=== PATIENT | female | born 1965 | race Caucasian/White ===

== ENCOUNTER → 2019-04-20 09:06 | Outpatient (BNVA) | payer MEDICARE, MEDICAID, SELFPAY | PROVIDERS: Family Provider Family Medicine; PCP Family Medicine; Visit Provider Anesthesiology | DX: G89.29 Other chronic pain (principal); M54.42 Lumbago with sciatica, left side; M47.816 Spondylosis without myelopathy or radiculopathy, lumbar region; M51.9 Unspecified thoracic, thoracolumbar and lumbosacral intervertebral disc disorder; M79.651 Pain in right thigh; M79.652 Pain in left thigh; Z79.891 Long term (current) use of opiate analgesic | CPT/HCPCS: 99214 ==

== ENCOUNTER 2019-04-20 11:25 | Emergency (ER) | payer MEDICARE, MEDICAID, SELFPAY ==
[2019-04-20 11:33] VITALS: BP 125/71; PULSE 82; RESP 16; O2SAT 99; BMI 33.2
--- NOTE | 2019-04-20 11:37 | ED_ITS ---
Entered by Rissa Sesay, acting as scribe for HPI - Neuro Symptoms/Deficit General: Chief Complaint: Neuro Symptoms/Deficit Stated Complaint: DR Gardner wants a stroke work up 2 TIA Time Seen by Provider: 04/20/19 11:37 Source: patient Mode of arrival: ambulatory History of Present Illness: HPI Narrative: 53 yo female presents with weakness and confusion. pt states this started months ago but worsened 3 days ago. pt was seen by Dr. Uriostegui today and when pt was telling him about her symptoms 3 days ago she was sent to the ED Dr. Gardner wanted her checked out. pt has a hx of TIA's. Pt denies any other symptoms. Onset (ago): day(s) (3 days ago) History of same: Yes (2 TIA's) Severity: similar to previous episodes Quality: weak Relieving factors: none Exacerbating factors: none Context: gradual onset Associated symptoms: Reports weakness; Deny chest pain, headache(s), malaise, nausea, syncope, vertigo or vomiting Treatments Prior to Arrival: none Review of Systems Const: Denies: fever, chills, body aches, fatigue, malaise or night sweats Eyes: Denies: change in vision or blurry vision ENMT: Denies: throat pain, oral sores/lesions, dental pain, nasal discharge or nasal congestion Card: Denies: chest pain, palpitations, irregular heart rhythm, edema, syncope, shortness of breath on exertion, shortness of breath when lying down or leg pain with exertion Resp: Denies: shortness of breath, productive cough, non-productive cough or wheezing GI: Denies: abdominal pain, nausea, vomiting, vomiting blood, coffee grounds in vomit, difficulty swallowing, heartburn/indigestion, diarrhea, constipation, cramping, blood in stool or black tarry stool : Denies: flank pain, painful urination, urinary frequency, urinary urgency, urinary incontinence or blood in urine Musc: Denies: neck pain, back pain, extremity pain, extremity swelling, joint pain or joint swelling Skin/Breast: Denies: rash, itching or redness Neuro: Denies: headache, numbness in extremities, changes in sensation, lack of coordination, difficulty walking, frequent falls or vertigo Psych: Denies: anxiety, depression, loss of interest, visual hallucinations, auditory hallucinations, suicidal ideation or homicidal ideation Endo: Denies: excessive urination, excessive thirst, tired all the time or cold intolerance Neeraj/Lymph: Denies: easy bruising, easy bleeding, petechiae, enlarged lymph nodes or tender lymph nodes PFSH ED PFSH: Statuses (acute, chronic, etc) shown below reflect problem list status as previously entered and may not be historically accurate Medical History 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) History of diabetes mellitus (Acute) History of TIA (transient ischemic attack) (Acute) Lumbosacral disc disease (Chronic) Opioid contract exists (Chronic) Spondylosis without myelopathy or radiculopathy, lumbar region (Chronic) Surgical History H/O right knee surgery (Acute) History of hysterectomy (Acute) Family History Other CAD (coronary artery disease) Cancer Diabetes Hypertension Social History Smoking and tobacco status: never smoked Alcohol intake: never NIH stroke score NIHSS: Level Of Consciousness - 1a: 0 Level Of Consciousness Questions - 1b: Both Correct Level Of Consciousness Commands - 1c: Both Correct Best Gaze - 2: Normal Visual Almeida - 3: No Visual Loss Facial Palsy - 4: Normal Motor Arm Right - 5: No Drift Motor Arm Left - 5: No Drift Motor Leg Right - 6: No Drift Motor Leg Left - 6: No Drift Limb Ataxia - 7: Absent Sensory - 8: Mild To Moderate Loss Best Language - 9: No Aphasia (nurse scored 1 for aphasia. I do not find evidence of any dyphagia) Dysarthia - 10: Normal Extinction And Inattention - 11: 0 Score: Total Score: 1 Physical Exam Const: COMMON NORMALS: no apparent distress GENERAL APPEARANCE: cooperative and comfortable ORIENTATION/CONSCIOUSNESS: Yes awake, Yes oriented to person, Yes oriented to place and Yes oriented to time HENMT: COMMON NORMALS: normocephalic, head/scalp atraumatic, hearing grossly normal bilaterally, external ears normal, EAC's normal, TM's normal bilaterally, nasal mucous membranes and turbinates normal, moist oral mucous membranes and oropharynx normal HEAD & SCALP: normocephalic and atraumatic NOSE: nasal mucous membranes and turbinates normal EXTERNAL EAR: Yes external ears normal EXTERNAL AUDITORY CANAL: EAC's normal TYMPANIC MEMBRANE: TM's normal bilaterally Eye: COMMON NORMALS: PERRL, EOMs intact bilaterally, conjunctivae normal and no scleral icterus CONJUNCTIVA: Yes conjunctivae normal PUPIL: Yes PERRL Neck/C-Spine: COMMON NORMALS: full ROM, no lymphadenopathy, supple and no JVD Lymph: LYMPHATIC: no lymphadenopathy noted and no lymphedema noted Resp: COMMON NORMALS: normal respiratory effort, no retractions, no use of accessory muscles and clear to auscultation bilaterally AUSCULTATION: clear to auscultation bilaterally Cardio: COMMON NORMALS: no JVD, regular rate, regular rhythm and no murmurs RATE: regular rate RHYTHM: regular rhythm Extremity: COMMON NORMALS: normal to inspection, normal capillary refill, no c lubbing, cyanosis or edema, no calf tenderness and no pedal edema Neuro: SENSORIUM/ORIENTATION: Yes oriented to person, Yes oriented to place and Yes oriented to time Skin: COMMON NORMALS: no rashes or lesions noted GENERAL SKIN EXAM: no rashes or lesions noted Course ED course: We will set her up for outpatient echo and carotids follow-up with primary care doctor return if worsens he has no focal neurologic deficits at this time. She states she has not had any real symptoms for a couple of days now. Vital Signs: Vital signs: Vital Signs Pulse Rate 82 04/20/19 13:29 Respiratory Rate 18 04/20/19 13:29 Blood Pressure 133/72 04/20/19 13:29 Pulse Oximetry 96 04/20/19 13:29 MDM - Neuro Symptoms/Deficit Lab Data: Labs: Lab Results 04/20/19 04/20/19 04/20/19 Range/Units 11:45 11:45 11:45 WBC 10.1 H (4.0-10.0) 10^3/ uL RBC 5.33 H (4.1-5.3) 10^6/u L Hgb 13.9 (11.5-15.3) g/dL Hct 42.2 (37.0-47.0) % MCV 79.2 L (81-99) fL MCH 26.1 L (28.0-34.0) pg MCHC 32.9 (30.0-36.0) g/dL RDW 13.2 (12.1-15.1) % Plt Count 282 (130-400) 10^3/c mm MPV 10.8 H (7.4-10.4) fL Neut % (Auto) 62.2 % Lymph % (Auto) 29.9 % Surry % (Auto) 3.8 % Eos % (Auto) 2.1 % Baso % (Auto) 1.0 % Neut # (Auto) 6.3 (1.8-7.7) 10^3/u L Lymph # (Auto) 3.0 (0.8-4.8) 10^3/u L Surry # (Auto) 0.4 (0.2-0.9) 10^3/u L Eos # (Auto) 0.2 (0.0-0.8) 10^3/u L Baso # (Auto) 0.1 (0.0-0.1) 10^3/u L Nucleated RBC % (a uto) 0 % Nucleated RBCs # 0.0 /100WBC PT 13.40 H (10.5-13.3) SECO NDS INR 0.99 (0.8-1.2) APTT 24.6 (23.9-36.7) SECO NDS Sodium 133 L (136-145) mmol/L Potassium 3.8 (3.5-5.1) mmol/L Chloride 91 L (98-107) mmol/L Carbon Dioxide 29 (22-29) mmol/L Anion Gap 16.8 (5-19) BUN 18 (6-20) mg/dL Creatinine 0.8 (0.5-0.9) mg/dL GFR Calculation 74.5 L (90-130) mL/min Glucose 382 H (74-109) mg/dL POC Glucose (70-110) mg/dL Calcium 10.3 H (8.6-10.0) mg/Dl Total Bilirubin 0.2 (0.15-1.2) mg/dL AST 23 (0-32) U/L ALT 36 H (0-33) U/L Alkaline Phosphata se 113 H (35-105) IU/L Total Protein 8.3 (6.6-8.7) g/dL Albumin 4.9 (3.5-5.2) g/dL Globulin 3.4 (1.3-4.6) g/dL Urine Color (Yellow) Urine Appearance (CLEAR) Urine pH (5-7) Ur Specific Gravit y (1.005-1.030) Urine Protein (Negative) Urine Glucose (UA) (Normal) Urine Ketones (Negative) Urine Occult Blood (Negative) Urine Nitrate (Negative) Urine Bilirubin (NEGATIVE) Urine Urobilinogen (Negative) mg/dL Ur Leukocyte Barbi ase (Negative) Urine Opiates Scre en (Negative) ng/mL Ur Barbiturates Sc reen (Negative) ng/mL Ur Phencyclidine S crn (Negative) ng/mL Ur Amphetamines Sc reen (Negative) ng/mL U Benzodiazepines Scrn (Negative) ng/mL Urine Cocaine Scre en (Negative) ng/mL U Marijuana (THC) Screen (Negative) ng/mL 04/20/19 04/20/19 04/20/19 Range/Units 12:15 12:24 12:24 WBC (4.0-10.0) 10^3/ uL RBC (4.1-5.3) 10^6/u L Hgb (11.5-15.3) g/dL Hct (37.0-47.0) % MCV (81-99) fL MCH (28.0-34.0) pg MCHC (30.0-36.0) g/dL RDW (12.1-15.1) % Plt Count (130-400) 10^3/c mm MPV (7.4-10.4) fL Neut % (Auto) % Lymph % (Auto) % Surry % (Auto) % Eos % (Auto) % Baso % (Auto) % Neut # (Auto) (1.8-7.7) 10^3/u L Lymph # (Auto) (0.8-4.8) 10^3/u L Surry # (Auto) (0.2-0.9) 10^3/u L Eos # (Auto) (0.0-0.8) 10^3/u L Baso # (Auto) (0.0-0.1) 10^3/u L Nucleated RBC % (a uto) % Nucleated RBCs # /100WBC PT (10.5-13.3) SECO NDS INR (0.8-1.2) APTT (23.9-36.7) SECO NDS Sodium (136-145) mmol/L Potassium (3.5-5.1) mmol/L Chloride (98-107) mmol/L Carbon Dioxide (22-29) mmol/L Anion Gap (5-19) BUN (6-20) mg/dL Creatinine (0.5-0.9) mg/dL GFR Calculation (90-130) mL/min Glucose (74-109) mg/dL POC Glucose 334 (70-110) mg/dL Calcium (8.6-10.0) mg/Dl Total Bilirubin (0.15-1.2) mg/dL AST (0-32) U/L ALT (0-33) U/L Alkaline Phosphata se (35-105) IU/L Total Protein (6.6-8.7) g/dL Albumin (3.5-5.2) g/dL Globulin (1.3-4.6) g/dL Urine Color Straw (Yellow) Urine Appearance Clear (CLEAR) Urine pH 5 (5-7) Ur Specific Gravit y 1.015 (1.005-1.030) Urine Protein Neg (Negative) Urine Glucose (UA) 4+ H (Normal) Urine Ketones Negative (Negative) Urine Occult Blood Neg (Negative) Urine Nitrate Negative (Negative) Urine Bilirubin Neg (NEGATIVE) Urine Urobilinogen Norm (Negative) mg/dL Ur Leukocyte Barbi ase Negative (Negative) Urine Opiates Scre en Negative (Negative) ng/mL Ur Barbiturates Sc reen Negative (Negative) ng/mL Ur Phencyclidine S crn Negative (Negative) ng/mL Ur Amphetamines Sc reen Negative (Negative) ng/mL U Benzodiazepines Scrn Negative (Negative) ng/mL Urine Cocaine Scre en Negative (Negative) ng/mL U Marijuana (THC) Screen Negative (Negative) ng/mL Imaging Data^: CT Head: Radiologist's impression: [address] [place] [address] CT Scan Report Signed Patient: Kaleb Betancourt #: [id number] : 1965Acct#:[id number] Age/Sex: 53 / FADM Date: 04/20/19 Loc: ERRoom/Bed: Attending Dr: Ordering Provider/Ordering MD: Lg De Leon DO Date of Service: 04/20/19 Procedure(s): CT head wo con* [id number] Accession Number(s): [id number] Report Number: [id number] WS: [id number] CT HEAD TECHNIQUE: Noncontrast CT of the head obtained from the skullbase to the vertex. CLINICAL INFORMATION: Symptoms of Acute Stroke COMPARISON: None. DLP: 755.[address] scans at [facility] use at least one of these dose optimization techniques: automated exposure control; mA and/or kV adjustment per patient size (includes targeted exams where dose is matched to clinical indication); or iterative reconstruction. FINDINGS: No evidence of intracranial hemorrhage or mass effect. Ventricular system and basal cisterns are patent. Mild small vessel changes with mild parenchymal volume loss. No extra-axial fluid collections. No evidence of mass or mass effect. Normal snider-white differentiation. Paranasal sinuses and mastoid air cells are well aerated. .Normal visualized soft tissues. Message left for Lg De Leon DO at 04/20/2019 12:[address]/CT head wo con* [id number] IMPRESSION: 1. No evidence of intracranial hemorrhage or mass effect. 2. Mild small vessel changes with mild parenchymal volume loss. 3. No acute intracranial findings. Dictated By:Clayton Caceres MD Signed By:Clayton Caceres MDSigned Date/Time:04/20/19 120 DD/ 1204 Discharge Plan Discharge Patient Disposition: Home, Self-Care Clinical Impression: TIA (transient ischemic attack), Diabetes mellitus, HTN (hypertension), Hyperlipidemia Condition: Stable Prescriptions: New atorvastatin 80 mg tablet 80 mg PO DAILY Qty: 30 RF: 0 Discontinued simvastatin 40 mg tablet 40 mg PO QDAY RF: 0 fenofibric acid (choline) 135 mg capsule,delayed release(DR/EC) 135 mg PO QDAY RF: 0 No Action tizanidine 4 mg capsule 4 mg PO TID PRNRF: 0 amitriptyline 150 mg tablet 150 mg PO .BEDTIME RF: 0 acyclovir 400 mg tablet 400 mg PO BID RF: 0 aripiprazole 15 mg tablet 15 mg PO QDAY RF: 0 furosemide [Lasix] 20 mg tablet 20 mg PO QAM RF: 0 Lactobacillus acidophilus [Acidophilus] Capsule 100 mg PO QDAY RF: 0 metformin 750 mg tablet extended release 24 hr 1,500 mg PO QDAY RF: 0 chlorthalidone 25 mg tablet 12.5 mg PO QDAY RF: 0 diclofenac sodium [Voltaren] 1 % gel 2 gm TOPICAL QID RF: 0 sertraline 100 mg tablet 200 mg PO QDAY RF: 0 promethazine 25 mg tablet 25 mg PO TID PRNRF: 0 omeprazole 20 mg tablet,delayed release (DR/EC) 20 mg PO QDAY RF: 0 estradiol 10 mcg insert 10 mcg VAGINAL QDAY RF: 0 hydroxyzine pamoate [Vistaril] 50 mg capsule 50 mg PO QID PRNRF: 0 Tresiba FlexTouch U-100 100 unit/mL (3 mL) insulin pen See Rx Instructions SUBCUT QDAY RF: 0 Breo Ellipta 100-25 mcg/dose blister with device See Rx Instructions INHALATION Q24H RF: 0 aspirin 81 mg tablet,delayed release (DR/EC) See Rx Instructions PO QDAY RF: 0 gabapentin 800 mg tablet 800 mg PO TID 30 Days Qty: 90 RF: 1 hydrocodone-acetaminophen 10-325 mg tablet 1 tab PO QID PRN (Reason: pain) 30 Days Qty: 120 RF: 0 hydrocodone-acetaminophen 10-325 mg tablet 1 tab PO QID PRN (Reason: pain) 30 Days Qty: 120 RF: 0 Discharge Orders: Discharge Order (Routine); Ordered 04/20/19 Ordered By: Lg De Leon Referrals: Marika Hendrickson DO [Primary Care Provider] - Discharge Diet: Usual diet Discharge Activity: Resume usual activity Activity Restrictions/Additional Instructions: Follow-up with your primary care doctor for further evaluation of your diabetes and new cholesterol medicine. Case management will call to set up echo cardiogram and carotid duplex Discharge Date/Time: 04/20/19 13:29 Coding Level of Care Code ED Golf Cart Attendant for Chg Fwervin The documentation recorded by the Lázaro umanzor Bridget Annette, accurately reflects the service I personally performed and the decisions made by Moises yoder Curtis L, DO Apr 20, 2019 11:25
--- NOTE | 2019-04-20 11:40 | CT_ITS ---
WS: [id number] CT HEAD TECHNIQUE: Noncontrast CT of the head obtained from the skullbase to the vertex. CLINICAL INFORMATION: Symptoms of Acute Stroke COMPARISON: None. DLP: 755.[address] scans at [facility] use at least one of these dose optimization techniques: automat ed exposure control; mA and/or kV adjustment per patient size (includes targeted exams where dose is matched to clinical indication); or iterative reconstruction. FINDINGS: No evidence of intracranial hemorrhage or mass effect. Ventricular system and basal cisterns are hodges nt. Mild small vessel changes with mild parenchymal volume loss. No extra-axial fluid collections. No evidence of mass or mass effect. Normal snider-white differentiation. Paranasal sinuses and mastoid air cells are well aerated. .Normal visualized soft tissues. Message left for Lg De Leon DO at 04/20/2019 12:[address]/CT head wo con* [id number] IMPRESSION: 1. No evidence of intracranial hemorrhage or mass effect. 2. Mild small vessel changes with mild parenchymal volume loss. 3. No acute intracranial findings.
--- NOTE | 2019-04-20 11:40 | ECG_ITS ---
Measurements Intervals [place] Rate: 80 P: 27 IN: 181 QRS: 14 QRSD: 85 T: 43 QT: 362 QTc: 419 SINUS RHYTHM NONSPECIFIC T-WAVE ABNORMALITY No previous ECG available for comparison Electronically Signed On 04-21-2019 11:24:09 ADULT MANAGER by Chris Samuel M.D. [id number]
[2019-04-20 11:50] LABS: Basophils # 0.1 10^3/uL (0.0-0.1); Eosinophils # 0.2 10^3/uL (0.0-0.8); Eosinophils % 2.1 %; Hematocrit 42.2 % (37.0-47.0); Hemoglobin 13.9 g/dL (11.5-15.3); Lymphocytes % 29.9 %; Mean Corpuscular HGB Conc 32.9 g/dL (30.0-36.0); Mean Corpuscular Hemoglobin 26.1 pg (28.0-34.0); Mean Corpuscular Volume 79.2 fL (81-99); Mean Platelet Volume 10.8 fL (7.4-10.4); Monocytes # 0.4 10^3/uL (0.2-0.9); Monocytes % 3.8 %; Neutrophils # 6.3 10^3/uL (1.8-7.7); Neutrophils % 62.2 %; Nucleated Red Blood Cells % 0 %; Platelet Count 282 10^3/cmm (130-400); Red Blood Count 5.33 10^6/uL (4.1-5.3); Red Cell Distribution Width 13.2 % (12.1-15.1); White Blood Count 10.1 10^3/uL (4.0-10.0)
[2019-04-20 11:58] LABS: INR 0.99 (0.8-1.2)
[2019-04-20 11:59] LABS: Partial Thromboplastin Time 24.6 SECONDS (23.9-36.7)
[2019-04-20 12:05] LABS: Alanine Aminotransferase 36 U/L (0-33); Albumin Level 4.9 g/dL (3.5-5.2); Alkaline Phosphatase 113 IU/L (35-105); Anion Gap 16.8 (5-19); Aspartate Amino Transferase 23 U/L (0-32); Blood Urea Nitrogen 18 mg/dL (6-20); Calcium 10.3 mg/Dl (8.6-10.0); Carbon Dioxide 29 mmol/L (22-29); Chloride 91 mmol/L (98-107); Globulin 3.4 g/dL (1.3-4.6); Glomerular Filtration Rate 74.5 mL/min (90-130); Glucose 382 mg/dL (74-109); Potassium 3.8 mmol/L (3.5-5.1); Sodium 133 mmol/L (136-145); Total Bilirubin 0.2 mg/dL (0.15-1.2); Total Protein 8.3 g/dL (6.6-8.7)
[2019-04-20 12:06] VITALS: BP 130/59; PULSE 78; RESP 18; O2SAT 94
[2019-04-20 12:22] LABS: Glucose Point of Care 334 mg/dL (70-110)
[2019-04-20 12:32] LABS: Add Urine Microscopic? NO
[2019-04-20 12:41] LABS: Bilirubin Urine Neg (NEGATIVE); Blood Urine Neg (Negative); Glucose Urine UA 4+ (Normal); Ketones Urine Negative (Negative); Leukocyte Esterase Urine Negative (Negative); Nitrate Urine Negative (Negative); Protein Urine Neg (Negative); Specific Gravity, Urine 1.015 (1.005-1.030); Urine Appearance Clear (CLEAR); Urine Color Straw (Yellow); Urobilinogen Urine Norm (Negative); pH Urine 5 (5-7)
[2019-04-20 12:45] VITALS: BP 130/71; PULSE 79; RESP 14; O2SAT 94
[2019-04-20 12:50] LABS: Amphetamines Screen Urine Negative (Negative); Barbiturates Screen Urine Negative (Negative); Benzodiazepines Screen Urine Negative (Negative); Cocaine Screen Urine Negative (Negative); Opiate Screen Urine Negative (Negative); PCP Screen Urine Negative (Negative); THC Screen Urine Negative (Negative)
[2019-04-20 13:29] VITALS: BP 133/72; PULSE 82; RESP 18; O2SAT 96
--- NOTE | 2019-04-20 15:33 | DCPLANNER ---
student financial aid manager was asked to schedule outpatient testing. student financial aid manager faxed order to centralized scheduling, will call for appointment information.
--- NOTE | 2019-05-02 15:01 | DCPLANNER ---
Patient has a echo and a carotid doppler test scheduled for 05.18.19 at 8:45.
--- NOTE | 2019-05-25 14:39 | DCPLANNER ---
Patient did attend appointment scheduled for 05.18.19 for an echo and an ultrasound,
== END 2019-04-20 13:29 | disposition home or self-care (01) ==
PROVIDERS: Emergency Provider Family Medicine; Family Provider Family Medicine; PCP Family Medicine
DX: G45.9 Transient cerebral ischemic attack, unspecified (principal); E11.9 Type 2 diabetes mellitus without complications; I10 Essential (primary) hypertension; E78.5 Hyperlipidemia, unspecified; Z79.82 Long term (current) use of aspirin; Z79.4 Long term (current) use of insulin; Z79.891 Long term (current) use of opiate analgesic
CPT/HCPCS: 36416; 70450; 80053; 80307; 81003; 82962; 85025; 85610; 85730; 93005; 99283; A9270

== ENCOUNTER 2019-05-18 08:37 | Outpatient (CLI) | payer MEDICARE, MEDICAID, SELFPAY ==
--- NOTE | 2019-05-18 08:43 | USCV_ITS ---
Jaja Betancourt Age: 53 Gender: F : 1965 Exam Date: 05/18/2019 09:27 Ordering Phys: Lg De Leon DO Technologist: Viki Matson Exam Location: [facility] [place] Indication: TIA Risk Factors: Previous Vascular Surgery: Right Brachial BP: / Left Brachial BP: / Right Left Velocity (cm/s) Spectral Plaque Velocity (cm/s) Spectral Plaque Syst/Diast Broadening Syst/Diast Broadening 102.50/20.90 Prox CCA 114.70/ 22.10 59.20/ 13.10 Mid CCA 84.90 / 19.80 66.40/ 17.10 Distal CCA 77.20 / 18.70 73.60/ 21.00 Prox ICA 54.10 / 13.70 56.50/ 19.10 Mid ICA 54.70 / 19.90 82.30/ 33.40 Distal ICA 51.30 / 17.10 110.30 ECA 105.80 1.39 ICA/CCA 0.64 Antegrade Vertebral Antegrade 45.10/ 12.40 cm/s 39.60/ 11.70 cm/s Tri Subclavian Tri 194.3 169.3 0 0 CONCLUSIONS Negative bilateral carotid Doppler ultrasound. Incidental right thyroid nodule, 0.98 x 1.21 cm, with anechoic center and mixed echotexture periiphery. Dr. Pat Sheth MD (Electronically Signed) Final Date: 18 May 2019 12:04 S
--- NOTE | 2019-05-18 08:43 | USCV_ITS ---
Jaja Betancourt Age: 53 Gender: F : 1965 Exam Date: 05/18/2019 08:55 Ordering Phys: Lg De Leon DO Technologist: Viki Matson Exam Location: [facility] [place] Indication: TIA BP: / HR: 79 Rhythm: Sinus Technical Quality: Suboptimal MEASUREMENTS (Male / Female) Normal Values 2D ECHO LV Diastolic Diameter PLAX 4.9 cm 4.2 - 5.9 / 3.9 - 5.3 cm LV Systolic Diameter PLAX 3.0 cm IVS Diastolic Thickness 0.9 cm 0.6 - 1.0 / 0.6 - 0.9 cm IVS Systolic Thickness 1.5 cm LVPW Diastolic Thickness 1.0 cm 0.6 - 1.0 / 0.6 - 0.9 cm LVPW Systolic Thickness 1.6 cm LVOT Diameter 2.0 cm LV Ejection Fraction 2D Teich 67.6 % LA Diameter 3.6 cm LA Width 3.4 cm LA Height 3.7 cm RA Width 2.6 cm RA Height 4.7 cm Aorta at Sinotubular Diameter 2.4 cm M-MODE LV Diastolic Diameter MM 4.9 cm 4.2 - 5.9 / 3.9 - 5.3 cm LV Systolic Diameter MM 2.8 cm LV Ejection Fraction MM Teich 74.1 % IVS Diastolic Thickness MM 1.1 cm 0.6 - 1.0 / 0.6 - 0.9 cm IVS Systolic Thickness MM 1.3 cm LVPW Diastolic Thickness MM 1.0 cm 0.6 - 1.0 / 0.6 - 0.9 cm LVPW Systolic Thickness MM 1.7 cm Aortic Annulus Diameter 2.4 cm LA Ao Ratio MM 1.5 MV E Point Septal Separation 0.4 cm DOPPLER AV Peak Velocity 96.0 cm/s LVOT Peak Velocity 85.0 cm/s AV Area Cont Eq vti 2.7 cm squared AV Area Cont Eq pk 2.8 cm squared MV Area PHT 5.0 cm squared Mitral E to A Ratio 1.2 MV E' Velocity 8.0 cm/s Mitral E to MV E' Ratio 11.8 Mitral E to LV E' Lateral Ratio 12.5 Mitral E to LV E' Septal Ratio 11.2 TV Peak E Velocity 75.0 cm/s PV Peak Velocity 73.0 cm/s RV Acceleration Time 0.1 s RV Ejection Time 0.3 s RV AcT/ET 0.2 FINDINGS Left Ventricle Normal left ventricular size, systolic function and wall thickness, with no regional wall motion abnormalities. Normal left ventricular wall thickness. Normal diastolic filling pattern. Left ventricular ejection fraction is estimated at 65 %. Right Ventricle The right ventricle is normal in size and function. Right Atrium The right atrium is normal in size. Left Atrium The left atrium is normal in size. Mitral Valve Structurally normal mitral valve without significant stenosis or prolapse. There is no mitral regurgitation. Aortic Valve Structurally normal trileaflet aortic valve. Mild aortic valve calcification. Aortic valve sclerosis without stenosis or regurgitation. Tricuspid Valve Structurally normal tricuspid valve without significant stenosis or regurgitation. Pulmonary artery systolic pressure is normal. Pulmonic Valve Pulmonic valve not well visualized. Pericardium Normal pericardium without effusion. Aorta Normal ascending aorta dimension. CONCLUSIONS Normal left ventricular size, systolic function and wall thickness, with no regional wall motion abnormalities. Normal left ventricular wall thickness. Normal diastolic filling pattern. Left ventricular ejection fraction is estimated at 65 %. Structurally normal trileaflet aortic valve. Mild aortic valve calcification. Aortic valve sclerosis without stenosis or regurgitation. There are no prior echocardiogram studies to compare. Dr. Chris Samuel MD (Electronically Signed) Final Date: 18 May 2019 14:37 S
== END 2019-05-18 08:38 | disposition home or self-care (01) ==
LOC: US 08:39
PROVIDERS: Family Provider Family Medicine; PCP Family Medicine; Visit Provider Family Medicine
DX: G45.9 Transient cerebral ischemic attack, unspecified (principal); E04.1 Nontoxic single thyroid nodule; I70.0 Atherosclerosis of aorta; I35.8 Other nonrheumatic aortic valve disorders
CPT/HCPCS: 93306; 93880

== ENCOUNTER → 2019-06-13 10:41 | Outpatient (BNVA) | payer MEDICARE, MEDICAID, SELFPAY | PROVIDERS: Family Provider Family Medicine; PCP Family Medicine; Visit Provider Anesthesiology | DX: G89.29 Other chronic pain (principal); M51.9 Unspecified thoracic, thoracolumbar and lumbosacral intervertebral disc disorder; M47.816 Spondylosis without myelopathy or radiculopathy, lumbar region; M54.42 Lumbago with sciatica, left side; Z79.891 Long term (current) use of opiate analgesic | CPT/HCPCS: 99214 ==

== ENCOUNTER → 2019-10-02 08:05 | Outpatient (BNVA) | payer MEDICARE, MEDICAID, SELFPAY | PROVIDERS: Family Provider Family Medicine; PCP Family Medicine; Visit Provider Anesthesiology | DX: G89.29 Other chronic pain (principal); M54.42 Lumbago with sciatica, left side; M47.816 Spondylosis without myelopathy or radiculopathy, lumbar region; M51.9 Unspecified thoracic, thoracolumbar and lumbosacral intervertebral disc disorder; Z79.891 Long term (current) use of opiate analgesic | CPT/HCPCS: 99214 ==

== ENCOUNTER → 2019-10-25 08:36 | Outpatient (BNVA) | payer MEDICARE, MEDICAID, SELFPAY | PROVIDERS: Family Provider Family Medicine; PCP Family Medicine; Visit Provider Anesthesiology | DX: G89.29 Other chronic pain (principal); M54.42 Lumbago with sciatica, left side; M53.3 Sacrococcygeal disorders, not elsewhere classified; M46.1 Sacroiliitis, not elsewhere classified; Z79.891 Long term (current) use of opiate analgesic | CPT/HCPCS: G0260; J1030; J3490 ==

== ENCOUNTER → 2019-12-12 08:57 | Outpatient (BNVA) | payer MEDICARE, MEDICAID, SELFPAY | PROVIDERS: Family Provider Family Medicine; PCP Family Medicine; Visit Provider Nurse Practitioner | DX: G89.29 Other chronic pain (principal); M54.41 Lumbago with sciatica, right side; M54.42 Lumbago with sciatica, left side; M47.816 Spondylosis without myelopathy or radiculopathy, lumbar region; M51.9 Unspecified thoracic, thoracolumbar and lumbosacral intervertebral disc disorder; Z79.891 Long term (current) use of opiate analgesic | CPT/HCPCS: 99214 ==

== ENCOUNTER → 2020-01-08 08:59 | Outpatient (BNVA) | payer MEDICARE, MEDICAID, SELFPAY | PROVIDERS: Family Provider Family Medicine; PCP Family Medicine; Visit Provider Anesthesiology | DX: G89.29 Other chronic pain (principal); M47.816 Spondylosis without myelopathy or radiculopathy, lumbar region; M54.41 Lumbago with sciatica, right side; M54.42 Lumbago with sciatica, left side; M51.9 Unspecified thoracic, thoracolumbar and lumbosacral intervertebral disc disorder; M53.3 Sacrococcygeal disorders, not elsewhere classified; Z79.891 Long term (current) use of opiate analgesic | CPT/HCPCS: 99214 ==

== ENCOUNTER → 2020-03-06 10:40 | Outpatient (BNVA) | payer MEDICARE, MEDICAID, SELFPAY | PROVIDERS: Family Provider Family Medicine; PCP Family Medicine; Visit Provider Nurse Practitioner | DX: G89.29 Other chronic pain (principal); M47.816 Spondylosis without myelopathy or radiculopathy, lumbar region; M54.41 Lumbago with sciatica, right side; M54.42 Lumbago with sciatica, left side; M25.562 Pain in left knee; M79.671 Pain in right foot; M25.571 Pain in right ankle and joints of right foot; Z79.891 Long term (current) use of opiate analgesic | CPT/HCPCS: 99213 ==

== ENCOUNTER → 2020-03-17 07:59 | Outpatient (BNVA) | payer MEDICARE, MEDICAID, SELFPAY | PROVIDERS: Family Provider Family Medicine; PCP Family Medicine; Visit Provider Specialist | DX: R20.0 Anesthesia of skin (principal); G56.20 Lesion of ulnar nerve, unspecified upper limb; E11.40 Type 2 diabetes mellitus with diabetic neuropathy, unspecified | CPT/HCPCS: 95885; 95910; G0463 ==

== ENCOUNTER → 2020-04-03 09:18 | Outpatient (BNVA) | payer MEDICARE, MEDICAID, SELFPAY | PROVIDERS: Family Provider Family Medicine; PCP Family Medicine; Visit Provider Nurse Practitioner | DX: G89.29 Other chronic pain (principal); M54.41 Lumbago with sciatica, right side; M54.42 Lumbago with sciatica, left side; M47.816 Spondylosis without myelopathy or radiculopathy, lumbar region; M51.9 Unspecified thoracic, thoracolumbar and lumbosacral intervertebral disc disorder; G56.20 Lesion of ulnar nerve, unspecified upper limb; M53.3 Sacrococcygeal disorders, not elsewhere classified; Z79.891 Long term (current) use of opiate analgesic | CPT/HCPCS: 99214 ==

== ENCOUNTER → 2020-04-17 08:19 | Outpatient (BNVA) | payer MEDICARE, MEDICAID, SELFPAY | PROVIDERS: Family Provider Family Medicine; PCP Family Medicine; Visit Provider Anesthesiology | DX: G89.29 Other chronic pain (principal); M53.3 Sacrococcygeal disorders, not elsewhere classified; M54.41 Lumbago with sciatica, right side; M54.42 Lumbago with sciatica, left side; Z79.891 Long term (current) use of opiate analgesic | CPT/HCPCS: G0260; J1030; J3490 ==

== ENCOUNTER → 2020-06-11 09:56 | Outpatient (BNVA) | payer MEDICARE, MEDICAID, SELFPAY | PROVIDERS: Family Provider Family Medicine; PCP Family Medicine; Visit Provider Nurse Practitioner | DX: M47.816 Spondylosis without myelopathy or radiculopathy, lumbar region (principal); M54.41 Lumbago with sciatica, right side; M54.42 Lumbago with sciatica, left side; M51.9 Unspecified thoracic, thoracolumbar and lumbosacral intervertebral disc disorder; G56.20 Lesion of ulnar nerve, unspecified upper limb; M53.3 Sacrococcygeal disorders, not elsewhere classified; Z79.891 Long term (current) use of opiate analgesic | CPT/HCPCS: 99213 ==

== ENCOUNTER → 2020-08-13 09:25 | Outpatient (BNVA) | payer MEDICARE, MEDICAID, SELFPAY | PROVIDERS: Family Provider Family Medicine; PCP Family Medicine; Visit Provider Anesthesiology | DX: G89.29 Other chronic pain (principal); M54.41 Lumbago with sciatica, right side; M54.42 Lumbago with sciatica, left side; M47.816 Spondylosis without myelopathy or radiculopathy, lumbar region; M51.9 Unspecified thoracic, thoracolumbar and lumbosacral intervertebral disc disorder; M25.539 Pain in unspecified wrist; M25.529 Pain in unspecified elbow; E11.40 Type 2 diabetes mellitus with diabetic neuropathy, unspecified; Z79.891 Long term (current) use of opiate analgesic | CPT/HCPCS: 99214 ==

== ENCOUNTER 2020-09-24 11:21 | Outpatient (CLI) | payer MEDICARE, MEDICAID, SELFPAY | END 2020-09-24 11:22 | disposition home or self-care (01) | LOC: SPT 09-25 11:22 | PROVIDERS: Family Provider Family Medicine; PCP Family Medicine; Visit Provider Podiatrist Foot & Ankle Surgery | DX: Z46.89 Encounter for fitting and adjustment of other specified devices (principal); M67.88 Other specified disorders of synovium and tendon, other site; M65.28 Calcific tendinitis, other site | CPT/HCPCS: 97760; L4397 ==

== ENCOUNTER → 2020-09-24 15:02 | Outpatient (BNVA) | payer MEDICARE, MEDICAID, SELFPAY | PROVIDERS: Family Provider Family Medicine; PCP Family Medicine; Referring Provider Family Medicine; Visit Provider Podiatrist Foot & Ankle Surgery | DX: M79.671 Pain in right foot (principal); M21.611 Bunion of right foot | CPT/HCPCS: 73630 ==

== ENCOUNTER → 2020-10-08 08:36 | Outpatient (BNVA) | payer MEDICARE, MEDICAID, SELFPAY | PROVIDERS: Family Provider Family Medicine; PCP Family Medicine; Visit Provider Anesthesiology | DX: G89.29 Other chronic pain (principal); M47.816 Spondylosis without myelopathy or radiculopathy, lumbar region; M54.41 Lumbago with sciatica, right side; M54.42 Lumbago with sciatica, left side; M51.9 Unspecified thoracic, thoracolumbar and lumbosacral intervertebral disc disorder; M79.673 Pain in unspecified foot; Z79.891 Long term (current) use of opiate analgesic | CPT/HCPCS: 99214 ==

== ENCOUNTER 2020-11-12 10:13 | Outpatient (RCR) | payer MEDICARE, MEDICAID, SELFPAY | END 2020-12-02 23:59 | disposition home or self-care (01) | LOC: SPT 10:13 | PROVIDERS: PCP Family Medicine; Visit Provider Podiatrist Foot & Ankle Surgery | DX: Z47.89 Encounter for other orthopedic aftercare (principal) | CPT/HCPCS: 97140; 97161; 97530 ==

== ENCOUNTER → 2020-12-01 13:13 | Outpatient (BNVA) | payer MEDICARE, MEDICAID, SELFPAY | PROVIDERS: PCP Family Medicine; Referring Provider Registered Nurse; Visit Provider Specialist | DX: M25.562 Pain in left knee (principal) | CPT/HCPCS: 73560; 73565 ==

== ENCOUNTER 2020-12-03 06:00 | Outpatient (RCR) | payer MEDICARE, MEDICAID, SELFPAY | END 2021-01-01 23:59 | disposition home or self-care (01) | LOC: SPT 06:00 | PROVIDERS: PCP Family Medicine; Visit Provider Podiatrist Foot & Ankle Surgery | DX: M76.61 Achilles tendinitis, right leg (principal); M65.28 Calcific tendinitis, other site | CPT/HCPCS: 97140 ==

== ENCOUNTER → 2020-12-09 08:16 | Outpatient (BNVA) | payer MEDICARE, MEDICAID, SELFPAY | PROVIDERS: PCP Family Medicine; Visit Provider Anesthesiology | DX: G89.29 Other chronic pain (principal); M54.41 Lumbago with sciatica, right side; M54.42 Lumbago with sciatica, left side; M47.816 Spondylosis without myelopathy or radiculopathy, lumbar region; M51.9 Unspecified thoracic, thoracolumbar and lumbosacral intervertebral disc disorder; Z79.891 Long term (current) use of opiate analgesic; Z87.891 Personal history of nicotine dependence | CPT/HCPCS: 99213 ==

== ENCOUNTER 2020-12-25 12:47 | Outpatient (CLI) | payer MEDICARE, MEDICAID, SELFPAY ==
--- NOTE | 2020-12-25 13:10 | MR_ITS ---
WS: [id number] MRI RIGHT ANKLE NONCONTRAST TECHNIQUE: Sagittal proton density, sagittal STIR, axial proton density, axial T1, axial T2 fat sat, coronal proton density, coronal proton density fat sat, coronal T2 fat sat. CLINICAL INFORMATION: Achillis Tendintis COMPARISON: None. FINDINGS: Normal bone marrow signal in the calcaneus. Achilles insertion enthesophyte. Plantar calcaneal spurri ng. Normal bone marrow signal in the talus. Mild fusiform thickening of the distal Achilles tendon wi th Achilles tendinopathy. Partial T2 hyperintense fluid signal intrasubstance tear in the distal tend on extending to the insertion. This extends over approximately 2.7 CM. No significant edema in the ca lcaneus. No significant fluid in the retrocalcaneal bursa. Normal medial and lateral malleolus. Normal navicular. Small chronic appearing split tear peroneus br endy. Normal extensor and flexor compartment tendons. Normal plantar aponeurosis. MR/MR ankle RT wo con* [id number] IMPRESSION: 1. Tendinopathy involving the distal Achilles with fusiform thickening of the Achilles. 2. Intrasubstance tear involving the distal Achilles at the myotendinous junct ion and extending to the insertion measuring approximately 2.7 cm in maximum cr aniocaudal length with fluid signal abnormality. 3. No significant edema in the calcaneus. No significant fluid in the retrocal caneal bursa. 4. Normal bone marrow signal in the talus and navicular. 5. Chronic appearing split tear of the peroneus brevis. 6. No other significant findings.
--- NOTE | 2020-12-25 13:45 | MR_ITS ---
WS: [id number] MRI LEFT KNEE NONCONTRAST TECHNIQUE: Axial PD, coronal PD fat sat, coronal PD, sagittal PD, and sagittal PD fat-sat images obta ined. CLINICAL INFORMATION: M25.569 - Pain in unspecified knee COMPARISON: None. FINDINGS: Distal quadriceps and patella tendons are intact. High-grade complete tear of the ACL. No normal fibe rs visualized. Normal PCL. Hypertrophic patella. Advanced joint space narrowing medial joint compartment with a small amount of subchondral edema. Hyp ertrophic spurring along the joint line. Advanced chondromalacia medial joint compartment. Chronic thinning of the meniscus. Normal lateral meniscus. Blunting of the medial meniscus with chron ic thinning. Chronic appearing tear along the meniscal root posterior horn with joint space narrowing . No acute appearing meniscal tears. Advanced chondromalacia patella. Normal popliteal fossa. Normal medial and lateral collateral ligamen ts. MR/MR knee LT wo con* [id number] IMPRESSION: 1. High-grade complete tear of the ACL. No normal fibers visualized. 2. Normal PCL. 3. Advanced joint space narrowing medial joint compartment with [id number] a rticulation and a small amount of subchondral edema. 4. Chronic thinning of the medial and lateral meniscus with chronic appearing medial meniscal root tear. No acute appearing meniscal tears. 5. Hypertrophic patella with advanced chondromalacia. 6. Normal ACL and PCL. Outbridge grading: grade IV: full-thickness cartilage loss with underlying bone reactive changes
== END 2020-12-25 12:48 | disposition home or self-care (01) ==
LOC: RADSHAW 12:51
PROVIDERS: PCP Family Medicine; Visit Provider Specialist
DX: M65.28 Calcific tendinitis, other site (principal); M25.562 Pain in left knee; S83.512A Sprain of anterior cruciate ligament of left knee, initial encounter; S93.491A Sprain of other ligament of right ankle, initial encounter; X58.XXXA Exposure to other specified factors, initial encounter; M22.42 Chondromalacia patellae, left knee
CPT/HCPCS: 73721

== ENCOUNTER → 2021-02-04 08:36 | Outpatient (BNVA) | payer MEDICARE, MEDICAID, SELFPAY | PROVIDERS: PCP Family Medicine; Visit Provider Anesthesiology | DX: G89.29 Other chronic pain (principal); M54.42 Lumbago with sciatica, left side; M54.41 Lumbago with sciatica, right side; M47.816 Spondylosis without myelopathy or radiculopathy, lumbar region; M51.9 Unspecified thoracic, thoracolumbar and lumbosacral intervertebral disc disorder; M23.92 Unspecified internal derangement of left knee; M17.12 Unilateral primary osteoarthritis, left knee; M79.673 Pain in unspecified foot; Z79.891 Long term (current) use of opiate analgesic; Z87.891 Personal history of nicotine dependence | CPT/HCPCS: 99214 ==

== ENCOUNTER → 2021-04-01 08:40 | Outpatient (BNVA) | payer MEDICARE, MEDICAID, SELFPAY | PROVIDERS: PCP Family Medicine; Visit Provider Anesthesiology | DX: G89.29 Other chronic pain (principal); M54.42 Lumbago with sciatica, left side; M54.41 Lumbago with sciatica, right side; M51.9 Unspecified thoracic, thoracolumbar and lumbosacral intervertebral disc disorder; M47.816 Spondylosis without myelopathy or radiculopathy, lumbar region; M79.673 Pain in unspecified foot; Z79.891 Long term (current) use of opiate analgesic | CPT/HCPCS: 99213 ==

== ENCOUNTER 2021-08-17 12:18 | Outpatient (CLI) | payer MEDICARE, MEDICAID, SELFPAY ==
--- NOTE | 2021-08-17 12:44 | XRR_ITS ---
PROCEDURE INFORMATION: Exam: XR Lumbosacral Spine Exam date and time: 08/17/2021 12:44 PM Age: 56 years old Clinical indication: Low back pain; Patient HX: Please comment on presence or absence of instability; Additional info: Vertebrogenic low back pain TECHNIQUE: Imaging protocol: XR of the lumbosacral spine. Views: 2 or 3 views. COMPARISON: No relevant prior studies available. FINDINGS: Bones/joints: No acute fracture. Vertebral body and disc heights are preserved. Moderate facet arthropathy noted in the lower lumbar spine. No signs of instability or malalignment on flexion/extension views. Soft tissues: Unremarkable. XR/XR lumbar spine f/e only [id number] IMPRESSION: Moderate facet arthropathy within the lower lumbar spine.
== END 2021-08-17 12:19 | disposition home or self-care (01) ==
LOC: RAD 12:22
PROVIDERS: PCP Family Medicine; Visit Provider Nurse Practitioner
DX: M54.51 Vertebrogenic low back pain (principal); M47.816 Spondylosis without myelopathy or radiculopathy, lumbar region
CPT/HCPCS: 72120

== ENCOUNTER → 2021-08-20 09:44 | Outpatient (BNVA) | payer MEDICAID, SELFPAY | PROVIDERS: PCP Family Medicine; Visit Provider Specialist | DX: M17.12 Unilateral primary osteoarthritis, left knee (principal); Z71.89 Other specified counseling | CPT/HCPCS: 20610; J1100; J2795; J3301 ==

== ENCOUNTER 2021-09-10 12:22 | Outpatient (CLI) | payer MEDICARE, MEDICAID, SELFPAY ==
--- NOTE | 2021-09-10 12:34 | XR_ITS ---
WS: [id number] Exam: XR lumbar spine f/e only [id number] Date/Time of Exam: 09/10/2021 12:34 PM Reason For Exam: VERTEBROGENIC LOW BACK PAIN Comparison 08/17/2021. No fracture or dislocation. Disc spaces are relatively well maintained. Mild spondylosis. No flexion or extension instability. Facet DJD at L4-5 and L5-S1. XR/XR lumbar spine f/e only [id number] IMPRESSION: 1. No flexion or extension instability. No fracture. 2. Degenerative changes as detailed above.
== END 2021-09-10 12:23 | disposition home or self-care (01) ==
PROVIDERS: PCP Family Medicine; Visit Provider Nurse Practitioner
DX: M54.51 Vertebrogenic low back pain (principal); M47.817 Spondylosis without myelopathy or radiculopathy, lumbosacral region
CPT/HCPCS: 72120

== ENCOUNTER → 2021-11-19 10:21 | Outpatient (BNVA) | payer MEDICARE, MEDICAID, SELFPAY | PROVIDERS: PCP Family Medicine; Visit Provider Specialist | DX: M17.12 Unilateral primary osteoarthritis, left knee (principal) | CPT/HCPCS: 20610; J1100; J2795; J3301 ==

== ENCOUNTER → 2022-03-18 12:48 | Outpatient (BNVA) | payer MEDICARE, MEDICAID, SELFPAY | PROVIDERS: PCP Family Medicine; Visit Provider Specialist | DX: M17.12 Unilateral primary osteoarthritis, left knee (principal); Z71.89 Other specified counseling | CPT/HCPCS: 20610; J1100; J2795; J3301 ==

== ENCOUNTER → 2022-05-03 13:07 | Outpatient (BNVA) | payer MEDICARE, MEDICAID, SELFPAY | PROVIDERS: PCP Family Medicine; Visit Provider Specialist | DX: S89.92XA Unspecified injury of left lower leg, initial encounter (principal); M17.12 Unilateral primary osteoarthritis, left knee; X50.1XXA Overexertion from prolonged static or awkward postures, initial encounter | CPT/HCPCS: 20610; 73560; 73565; 99213; J1100; J2795; J3301 ==

== ENCOUNTER → 2022-07-01 09:55 | Outpatient (BNVA) | payer MEDICARE, MEDICAID, SELFPAY | PROVIDERS: PCP Family Medicine; Visit Provider Specialist | DX: M17.12 Unilateral primary osteoarthritis, left knee (principal) | CPT/HCPCS: 20610; J1100; J2795; J3301 ==

== ENCOUNTER → 2022-10-14 09:27 | Outpatient (BNVA) | payer MEDICARE, MEDICAID, SELFPAY | PROVIDERS: PCP Family Medicine; Visit Provider Specialist | DX: M17.12 Unilateral primary osteoarthritis, left knee (principal) | CPT/HCPCS: 20610; J1100; J2795; J3301 ==

== ENCOUNTER → 2023-01-27 09:55 | Outpatient (BNVA) | payer MEDICARE, MEDICAID, SELFPAY | PROVIDERS: PCP Family Medicine; Visit Provider Specialist | DX: M17.12 Unilateral primary osteoarthritis, left knee; Z71.89 Other specified counseling | CPT/HCPCS: 20610; J1100; J2795; J3301 ==

== ENCOUNTER → 2023-05-05 08:23 | Outpatient (BNVA) | payer MEDICARE, MEDICAID, SELFPAY | PROVIDERS: PCP Family Medicine; Visit Provider Nurse Practitioner | DX: M17.12 Unilateral primary osteoarthritis, left knee (principal); Z71.89 Other specified counseling | CPT/HCPCS: 20610; J1100; J2795; J3301 ==

== ENCOUNTER → 2023-07-29 08:39 | Outpatient (BNVA) | payer MEDICARE, MEDICAID, SELFPAY | PROVIDERS: PCP Family Medicine; Visit Provider Specialist | DX: M17.12 Unilateral primary osteoarthritis, left knee (principal); Z71.89 Other specified counseling | CPT/HCPCS: 20610; J1100; J2795; J3301 ==

== ENCOUNTER → 2023-11-25 09:39 | Outpatient (BNVA) | payer MEDICARE, MEDICAID, SELFPAY | PROVIDERS: PCP Family Medicine; Visit Provider Specialist | DX: M17.12 Unilateral primary osteoarthritis, left knee (principal) | CPT/HCPCS: 20610; J1100; J2795; J3301 ==

== ENCOUNTER → 2023-12-19 10:28 | Outpatient (BNVA) | payer MEDICARE, MEDICAID, SELFPAY | PROVIDERS: PCP Family Medicine; Visit Provider Specialist | DX: M16.12 Unilateral primary osteoarthritis, left hip; M25.552 Pain in left hip | CPT/HCPCS: 73523 ==

== ENCOUNTER 2024-01-20 09:28 | Outpatient (CLI) | payer MEDICARE, MEDICAID, SELFPAY ==
--- NOTE | 2024-01-20 09:30 | MR_ITS ---
WS: [id number] EXAMINATION: MR hip LT wo con* [id number] ORDER DATE: 01/20/2024 9:44 AM COMPARISON: None. HISTORY: left hip pain CONTRAST: None. TECHNIQUE: Coronal STIR of the Pelvis. Coronal proton density, coronal T1, axial T2 fat sat, axial T1 , sagittal T2 fat sat, and sagittal T1 performed of the hip. After contrast, axial T1 fat sat, coron al T1 fat sat, and sagittal T1 fat sat were performed. FINDINGS: Normal bone marrow signal in both hips. Normal bone marrow signal in the LEFT femoral head and neck. No acute fractures. No evidence of avascular necrosis. Soft tissue edema with a small amount of fluid about the greater trochanter compatible with trochanteric bursitis. This is asymmetric compared to t he RIGHT. No other acute LEFT hip findings. Normal bone marrow signal in the pelvis and sacrum. No sacral insufficiency fractures. Mild degenerat dianne sacroiliac joints. No inguinal lymphadenopathy. Sigmoid diverticulosis. MR/MR hip LT wo con* [id number] IMPRESSION: 1. No acute LEFT hip fractures. Normal bone marrow signal in the LEFT hip. 2. Acute trochanteric bursitis involving the LEFT greater trochanter with asso ciated fluid and edema. 3. Moderate degenerative narrowing of both hips. No significant subchondral cy stic change or edema. 4. Small cystic lesion in the LEFT lower pelvis may represent small ovarian cy st or possibly fluid-filled sigmoid or ureteral diverticulum. This could be fur ther evaluated with contrast-enhanced CT abdomen pelvis. This measures approxim ately 2.0 x 1.5 cm.
== END 2024-01-20 09:29 | disposition home or self-care (01) ==
LOC: RAD 09:29
PROVIDERS: PCP Family Medicine; Visit Provider Specialist
DX: M70.62 Trochanteric bursitis, left hip (principal); M16.0 Bilateral primary osteoarthritis of hip; R19.04 Left lower quadrant abdominal swelling, mass and lump
CPT/HCPCS: 73721

== ENCOUNTER → 2024-04-06 08:11 | Outpatient (BNVA) | payer MEDICARE, MEDICAID, SELFPAY | PROVIDERS: PCP Family Medicine; Visit Provider Specialist | DX: M23.92 Unspecified internal derangement of left knee (principal); M17.12 Unilateral primary osteoarthritis, left knee; Z71.89 Other specified counseling | CPT/HCPCS: 20610; 73560; 73565; 99213; J1100; J2795; J3301 ==

== ENCOUNTER → 2024-05-21 08:36 | Outpatient (BNVA) | payer MEDICARE, MEDICAID, SELFPAY | PROVIDERS: PCP Family Medicine; Visit Provider Specialist | DX: M70.62 Trochanteric bursitis, left hip (principal) | CPT/HCPCS: 20610; 99214; J1100; J2795; J3301 ==

== ENCOUNTER → 2024-07-20 08:43 | Outpatient (BNVA) | payer MEDICARE, MEDICAID, SELFPAY | PROVIDERS: PCP Family Medicine; Visit Provider Specialist | DX: M17.12 Unilateral primary osteoarthritis, left knee (principal); M23.92 Unspecified internal derangement of left knee | CPT/HCPCS: 20610; J1100; J2795; J3301; J9999 ==

== ENCOUNTER → 2024-08-13 14:19 | Outpatient (BNVA) | payer MEDICARE, MEDICAID, SELFPAY | PROVIDERS: PCP Family Medicine; Visit Provider Specialist | DX: M17.12 Unilateral primary osteoarthritis, left knee (principal) | CPT/HCPCS: 73560; 73565; 99214 ==

== ENCOUNTER → 2024-11-02 09:45 | Outpatient (BNVA) | payer MEDICARE, MEDICAID, SELFPAY | PROVIDERS: PCP Family Medicine; Visit Provider Nurse Practitioner | DX: M17.12 Unilateral primary osteoarthritis, left knee (principal) | CPT/HCPCS: 20610; J1100; J2795; J3301; J9999 ==

== ENCOUNTER 2024-11-02 12:37 | Emergency (ER) | payer MEDICARE, MEDICAID, SELFPAY ==
[2024-11-02 12:37] VITALS: PULSE 86; RESP 16; TEMP 36.6; O2SAT 95
--- OUTSIDE RECORDS SUMMARY | 2024-11-02 12:41 | XMS_ITS | Encounter Summary ---
Author Organization [facility] Address [address] [place] [address] Care Team Providers Care Repossessor Name Role Phone Marika Hendrickson DO Primary Care Provider Encounter Details Date Type Department Care Team (Late st Contact Info) Description 07/13/2007 [facility] [address] [place], [place] [id number] Jose Roberto Leon MD [address] [address] Social History Tobacco Use Types Packs/Day Years Used Date Smoking Tobacco: Never Assessed Comments Unknown Sex and Gender Information Value Date Recorded Sex Assigned at Not on file Legal Sex Female 6:00 AM [employer]GR[employer] Gender Identity Not on file Sexual Orientation Not on file documented as of this encounter Plan of Treatment Not on file documented as of this encounter Visit Diagnoses Not on filedocumented in this encounter Additional Health Concerns Infection Onset Date Last Indicated Resolved Time R/O C. diff 09/18/2020 09/18/2020 09/19/2020 2:51 PM CDT documented as of this encounter Care Teams Repossessor Relationship Specialty Start Date End Date Marika Hendrickson DO [address] [place] [address] PCP - General Family Practice 06/13/17 documented as of this encounter
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
--- OUTSIDE RECORDS SUMMARY | 2024-11-02 12:41 | XMS_ITS | Encounter Summary ---
Author Organization [facility] Address [address] [place] [address] Care Team Providers Care Cellophaner Name Role Phone Marika Hendrickson DO Primary Care Provider [phone]- [phone] Encounter Details Date Type Department Care Team (Late st Contact Info) Description 02/27/2008 Outpatient Historical [facility] [address] [place] [address] Other, [facility] [place] ADDRESS ON FILE Social History Tobacco Use Types Packs/Day Years Used Date Smoking Tobacco: Every Day Cigarettes 1 35 Alcohol Use Standard Drinks/Week Comments Yes 0 (1 standard drink = 0.6 oz pur e alcohol) very rarely Comments No Sex and Gender Information Value Date Recorded Sex Assigned at Not on file Legal Sex Female 6:00 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 diff 09/18/2020 09/18/2020 09/19/2020 2:51 PM CDT documented as of this encounter Care Teams Cellophaner Relationship Specialty Start Date End Date Marika Hendrickson DO [address] [place] [phone] PCP - General Family Practice 06/13/17 documented as of this encounter
--- OUTSIDE RECORDS SUMMARY | 2024-11-02 12:41 | XMS_ITS | Encounter Summary ---
Author Organization [facility] Address [address] [place] [address] Care Team Providers Care Nip Wrapper Name Role Phone Marika Hendrickson DO Primary Care Provider [phone] Encounter Details Date Type Department Care Team (Late st Contact Info) Description 12/19/2007 Outpatient Historical [facility] Other, [facility] NO ADDRESS ON FILE Social History Tobacco Use Types Packs/Day Years Used Date Smoking Tobacco: Every Day Cigarettes 1 35 Alcohol Use Standard Drinks/Week Comments Yes 0 (1 standard drink = 0.6 oz pur e alcohol) very rarely Comments No Sex and Gender Information Value Date Recorded Sex Assigned at Not on file Legal Sex Female 6: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 diff 09/18/2020 09/18/2020 09/19/2020 2:51 PM CDT documented as of this encounter Care Teams Nip Wrapper Relationship Specialty Start Date End Date Marika Hendrickson DO [address] [place] [address] PCP - General Family Practice 06/13/17 documented as of this encounter
--- OUTSIDE RECORDS SUMMARY | 2024-11-02 12:41 | XMS_ITS | Encounter Summary ---
Author Organization [facility] Address [address] [place] [address] Care Team Providers Care Farmer General Name Role Phone Marika Hendrickson DO Primary Care Provider [phone]- [phone] Encounter Details Date Type Department Care Team (Latest Contact Info) Description 04/29/2006 Outpatient [facility] Medicine [address] [phone] Hussein Verma MD NO ADDRESS ON FILE Depressive Disorder, not Elsewhere Classified (Primary Dx); Unspecified Endocrine Disorder Social History Tobacco Use Types Packs/Day Years Used Date Smoking Tobacco: Never Assessed Comments Unknown Sex and Gender Information Value Date Recorded Sex Assigned at Not on file Legal Sex Female 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 diff 09/18/2020 09/18/2020 09/19/2020 2:51 PM CDT documented as of this encounter Care Teams Farmer General Relationship Specialty Start Date End Date Marika Hendrickson DO [address] [place] [phone] PCP - General Family Practice 06/13/17 documented as of this encounter
--- OUTSIDE RECORDS SUMMARY | 2024-11-02 12:41 | XMS_ITS | Encounter Summary ---
Author Organization [facility] Address [address] [place] [address] Care Team Providers Care Threader Operator Name Role Phone Marika Hendrickson DO Primary Care Provider [phone]- [phone] Encounter Details Date Type Department Care Team (Late st Contact Info) Description 02/07/2008 Outpatient Historical [facility] [address] [place] [address] [place] [facility] [place] Social History Tobacco Use Types Packs/Day Years Used Date Smoking Tobacco: Every Day Cigarettes 1 35 Alcohol Use Standard Drinks/Week Comments Yes 0 (1 standard drink = 0.6 oz pur e alcohol) very rarely Comments No Sex and Gender Information Value Date Recorded Sex Assigned at Not on file Legal Sex Female 6:00 AM CERAMIC COATER Gender Identity Not on file Sexual Orientation Not on file documented as of this encounter Plan of Treatment Not on file documented as of this encounter Visit Diagnoses Not on filedocumented in this encounter Additional Health Concerns Infection Onset Date Last Indicated Resolved Time R/O C. diff 09/18/2020 09/18/2020 09/19/2020 2:51 PM CDT documented as of this encounter Care Teams Threader Operator Relationship Specialty Start Date End Date Marika Hendrickson DO [address] [place] [phone] PCP - General Family Practice 06/13/17 documented as of this encounter
--- OUTSIDE RECORDS SUMMARY | 2024-11-02 12:41 | XMS_ITS | Encounter Summary ---
Author Organization [facility] Address [address] [place] [address] Care Team Providers Care Assault Amphibious Vehicle Crewman Name Role Phone Marika Hendrickson DO Primary Care Provider Encounter Details Date Type Department Care Team (Late st Contact Info) Description 11/23/2007 Outpatient Historical [facility], Physician NO ADDRESS ON FILE Ed Lorenz MD [address] [place] [phone] Enmanuel Mercado DO [address] [place], [place] [address] Unspecified Personality Disorder (CMS/HCC); Chronic Pain Syndrome Social History Tobacco Use Types Packs/Day Years Used Date Smoking Tobacco: Never Assessed Comments Unknown Sex and Gender Information Value Date Recorded Sex Assigned at Not on file Legal Sex Female 6:00 AM 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 Gender Identity Not on file Sexual Orientation Not on file documented as of this encounter Plan of Treatment Not on file documented as of this encounter Procedures Procedure Name Priority Date/Time Associated Diagnosis Comments URINALYSIS MICROSCOPY ONLY Routine 11/24/2007 9:48 AM CDT URINALYSIS W/REFLEX MICROSCOPIC Routine 11/24/2007 9:48 AM CDT CBC WITH DIFFERENTIAL Stat 11/23/2007 6:31 PM CDT TSH Stat 11/23/2007 6:31 PM CDT ETHANOL LEVEL Stat 11/23/2007 6:31 PM CDT COMPREHENSIVE METABOLIC PANEL Stat 11/23/2007 6:31 PM CDT DRUG SCREEN, URINE Stat 11/23/2007 6: 25 PM CDT documented in this encounter Results * (ABNORMAL) URINALYSIS MICROSCOPY ONLY (11/24/2007 9:48 AM CDT) Pathologist [facility] BACTERIA UA Few(A) None Seen [facility] RBC UA None Seen 0 - 2 [facility] HYALINE CAST None Seen 0 - 2 [facility] WBC URINE 0-2 0 - 2 [facility] Urine specimen (specimen) 11/24/2007 9:48 AM CDT 11/24/2007 9:48 AM CDT Narrative INTERFACE SYSTEM - 11/24/2007 10:17 AM CDT Microscopic ordered by policy Enmanuel Mercado DO URINE ORDERABLES Final Result INTERFACE SYSTEM Refer to clinic/hospital department [facility] CLIA# [id number] [address] [place] [address] * (ABNORMAL) URINALYSIS (11/24/2007 9:48 AM CDT) Pathologist [facility] UROBILINOGEN UA 0.2 0.2 [facility] CLARITY UA Clear Clear [facility] SPECIFIC GRAVITY UA 1.025 <=1.005 [facility] GLUCOSE UA NEGATIVE NEGATIVE [facility] PH UA 6.0 5.0 - 9.0 [facility] BILIRUBIN UA NEGATIVE NEGATIVE [facility] LEUKOCYTE ESTERASE UA Trace(A) NEGATIVE [facility] KETONES UA NEGATIVE NEGATIVE [facility] MICRO EXAM Yes(A) No [facility] COLOR UA Yellow Straw [facility] PROTEIN UA NEGATIVE NEGATIVE [facility] BLOOD UA NEGATIVE NEGATIVE [facility] NITRITE UA NEGATIVE NEGATIVE [facility] Urine specimen (specimen) 11/24/2007 9:48 AM CDT 11/24/2007 9:48 AM CDT us Enmanuel Mercado DO URINE ORDERABLES Final Result Performing Organization Address [facility] Phone Number INTERFACE SYSTEM Refer to clinic/hospital department [facility] CLIA# [id number] [facility] [place] [address] * TSH (11/23/2007 6:31 PM CDT) Pathologist [facility] TSH 1.614 0.350 - 5.500 uIU/ml [facility] Blood specimen (specimen) 11/23/2007 6:31 PM CDT 11/23/2007 6:41 PM CDT Ed Lorenz MD CHEMISTRY ORDERABLES Jacy l Result Performing Organization Address [facility] Phone Number INTERFACE SYSTEM Refer to clinic/hospital department [facility] CLIA# [id number] [facility] [place] [address] * (ABNORMAL) COMPREHENSIVE METABOLIC PANEL (11/23/2007 6:31 PM CDT) CREATININE 0.8 0.7 - 1.2 mg/dL [facility] ALT 32 4 - 36 IU/L [facility] CALCIUM 10.0 8.4 - 10.5 mg/dL [facility] GLUCOSE 105 70 - 110 mg/dL [facility] ALKALINE PHOSPHATASE 130(H) 25 - 100 U/L [facility] CHLORIDE 107 95 - 110 mEq/L [facility] OSMOLALITY, CALCULATED 283 275 - 295 mOsm/Kg [facility] GLOBULIN (CALC) 3.3 2.4 - 3.9 g/dL [facility] TOTAL PROTEIN 8.2 6.3 - 8.2 g/dL [facility] SODIUM 138 136 - 145 mEq/L [facility] BILIRUBIN TOTAL 0.3 0.3 - 1.2 mg/dL [facility] CO2 28 22 - 32 mmol/l [facility] BUN 8 7 - 17 mg/dL [facility] AST 27 8 - 33 U/L [facility] ALBUMIN/GLOBULIN RATIO 1.5 1.0 - 2.3 [facility] POTASSIUM 3.9 3.5 - 5.0 mEq/L [facility] ANION GAP 7(L) 9 - 20 mEq/L [facility] ALBUMIN 4.9 3.5 - 5.0 g/dL [facility] Blood specimen (specimen) 11/23/2007 6:31 PM CDT 11/23/2007 6:41 PM CDT Ed Lorenz MD CHEMISTRY ORDERABLES Jacy rosas Result Performing Organization Address City/State/[facility] Co de Phone Number INTERFACE SYSTEM Refer to clinic/hospital department [facility] CLIA# [id number] [address] [place] [address] * (ABNORMAL) CBC WITH DIFFERENTIAL (11/23/2007 6:31 PM CDT) BASOPHILS ABSOLUTE 0.1 0.0 - 0.2 K/ul [facility] BASOPHILS 0.5 0.0 - 1.0 % [facility] HEMOGLOBIN 14.0 12.0 - 16.0 g/dL [facility] RDW 13.4 11.0 - 14.5 % [facility] MONOCYTE ABSOLUTE 0.6 0.1 - 0.6 K/ul [facility] MONOCYTES 5.0 2.0 - 10.0 % [facility] WBC 12.9(H) 4.5 - 11.0 K/ul [facility] MCH 29.3 27.0 - 34.0 pg [facility] NEUTROPHIL ABSOLUTE 8.1(H) 2.0 - 8.0 K/ul [facility] NEUTROPHILS 62.4 42.2 - 75.2 % [facility] HEMATOCRIT 40.8 36.0 - 46.0 % [facility] EOSINOPHILS 1.5 0.0 - 7.0 % [facility] PLATELETS 279 140 - 440 K/ul [facility] EOSINOPHIL ABSOLUTE 0.2 0.0 - 0.7 K/ul [facility] RBC 4.78 4.20 - 5.40 Mil/ul [facility] LYMPHOCYTES 30.6 24.0 - 44.0 % [facility] MCHC 34.3 30.0 - 35.0 g/dL [facility] LYMPHOCYTE ABSOLUTE 4.0 1.2 - 4.0 K/ul [facility] MCV 85.4 84.0 - 103.0 Fl [facility] MPV 10.3 8.9 - 12.8 Fl [facility] Blood specimen (specimen) 11/23/2007 6:31 PM CDT 11/23/2007 6:41 PM CDT Ed Lorenz MD HEMATOLOGY ORDERABLES Fin al Result Performing Organization Address City/State/[facility] Co de Phone Number INTERFACE SYSTEM Refer to clinic/hospital department [facility] IA# [id number] [address] [place] [address] * ETHANOL LEVEL (11/23/2007 6:31 PM CDT) ETHANOL <10 <=10 mg/dL [facility] ETHANOL % <0.010 <=0.010 % [facility] Blood specimen (specimen) 11/23/2007 6:31 PM CDT 11/23/2007 6:41 PM CDT Ed Lorenz MD CHEMISTRY ORDERABLES Jacy l Result Performing Organization Address [facility] de Phone Number INTERFACE SYSTEM Refer to clinic/hospital department [facility] CLIA# [id number] [facility] [place] [address] * (ABNORMAL) DRUG SCREEN, URINE (11/23/2007 6:25 PM CDT) PCP QUAL, URINE Drug Negative Drug Negative [facility] OPIATE QUAL, URINE Drug Negative Drug Negative [facility] BARBITURATE QUAL, URINE Drug Negative Drug Negative [facility] CANNABINOIDS QUAL, URINE Drug Negative Drug Negative [facility] BENZODIAZEPINE QUAL, URINE Drug Positive(A) Drug Negative [facility] COCAINE QUAL URINE Drug Negative Drug Negative [facility] AMPHETAMINE QUAL, URINE Drug Negative Drug Negative [facility] Comment: All components of the Urine Drug Screen are performed by Immunoassay. Confirmation must be requested by physician before being sent out. NOTE: The ingestion of natural herbal and plant products containing Ephedra/Ephedra metabolites can produce in urine one or more substances capable of cross reacting with amphetamine/methamphetamine immunoassays. This test provides a preliminary result only. A more specific alternative chemical method must be used to obtain a confirmed analytical result. Drug Screening Cutoff Amphetamine/Methamphetamine 1000 ng/ml Barbiturates 200 ng/ml Benzodiazepines 200 ng/ml Cannabinoid 50 ng/ml Cocaine Metabolite 300 ng/ml Opiates 300 ng/ml PCP 25 ng/ml Immunoassay Screening results above cutoff value are reported as Positive. 11/23/2007 6:25 PM CDT 11/23/2007 6:28 PM CDT Ed Lorenz MD URINE ORDERABLES Final Re sult Performing Organization Address [facility] de Phone Number INTERFACE SYSTEM Refer to clinic/hospital department [facility] CLIA# [id number] [address] [place] [address] documented in this encounter Visit Diagnoses Diagnosis Unspecified personality disorder (CMS/HCC) Unspecified personality disorder Chronic pain syndrome documented in this encounter Additional Health Concerns Infection Onset Date Last Indicated Resolved Time R/O C. diff 09/18/2020 09/18/2020 09/19/2020 2:51 PM CDT documented as of this encounter Care Teams Assault Amphibious Vehicle Crewman Relationship Specialty Start Date End Date Marika Hendrickson DO [address] [place] [address] PCP - General Family Practice 06/13/17 documented as of this encounter
--- OUTSIDE RECORDS SUMMARY | 2024-11-02 12:41 | XMS_ITS | Encounter Summary ---
Author Organization [facility] Address [address] [place] [address] Care Team Providers Care Registered Account Administrator Name Role Phone Marika Hendrickson DO Primary Care Provider [phone]- [phone] Encounter Details Date Type Department Care Team (Latest Contact Info) Description 02/02/[address] [facility] [address] [place] [address] Hussein Verma MD NO ADDRESS ON FILE Unspecified Sinusitis (Chronic) (Primary Dx); Acute Pharyngitis Social History Tobacco Use Types Packs/Day Years Used Date Smoking Tobacco: Never Assessed Comments Unknown Sex and Gender Information Value Date Recorded Sex Assigned at Not on file Legal Sex Female 6:00 AM ANVIL WORKER Gender Identity Not on file Sexual Orientation Not on file documented as of this encounter Plan of Treatment Not on file documented as of this encounter Visit Diagnoses Diagnosis Unspecified sinusitis (chronic)- Primary Acute pharyngitis documented in this encounter Additional Health Concerns Infection Onset Date Last Indicated Resolved Time R/O C. diff 09/18/2020 09/18/2020 09/19/2020 2:51 PM CDT documented as of this encounter Care Teams Registered Account Administrator Relationship Specialty Start Date End Date Marika Hendrickson DO [address] [place] [address] PCP - General Family Practice 06/13/17 documented as of this encounter
--- OUTSIDE RECORDS SUMMARY | 2024-11-02 12:41 | XMS_ITS | Encounter Summary ---
Author Organization [facility] Address [address] [place] [address] Care Team Providers Care Government Gauger Name Role Phone Marika Hendrickson DO Primary Care Provider Encounter Details Date Type Department Care Team (Late st Contact Info) Description 02/21/2008 Outpatient Historical [facility] [address] [place] [address] Sb Tobar Social History Tobacco Use Types Packs/Day Years Used Date Smoking Tobacco: Every Day Cigarettes 1 35 Alcohol Use Standard Drinks/Week Comments Yes 0 (1 standard drink = 0.6 oz pur e alcohol) very rarely Comments No Sex and Gender Information Value Date Recorded Sex Assigned at Not on file Legal Sex Female 6:00 AM INTELLIGENCE OFFICER Gender Identity Not on file Sexual Orientation Not on file documented as of this encounter Plan of Treatment Not on file documented as of this encounter Visit Diagnoses Not on filedocumented in this encounter Additional Health Concerns Infection Onset Date Last Indicated Resolved Time R/O C. diff 09/18/2020 09/18/2020 09/19/2020 2:51 PM CDT documented as of this encounter Care Teams Government Gauger Relationship Specialty Start Date End Date Marika Hendrickson DO [address] [place] [phone] PCP - General Family Practice 06/13/17 documented as of this encounter
--- OUTSIDE RECORDS SUMMARY | 2024-11-02 12:41 | XMS_ITS | Encounter Summary ---
Author Organization [facility] Address [address] [facility] [place] [address] Care Team Providers Care Group Therapist Name Role Phone Marika Hendrickson DO Primary Care Provider [phone]- [phone] Encounter Details Date Type Department Care Team (Late st Contact Info) Description 02/20/2008 Outpatient Historical [facility] [address] [place] [address] Other, [facility] NO ADDRESS ON FILE Social History Tobacco Use Types Packs/Day Years Used Date Smoking Tobacco: Every Day Cigarettes 1 35 Alcohol Use Standard Drinks/Week Comments Yes 0 (1 standard drink = 0.6 oz pur e alcohol) very rarely Comments No Sex and Gender Information Value Date Recorded Sex Assigned at Not on file Legal 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 diff 09/18/2020 09/18/2020 09/19/2020 2:51 PM CDT documented as of this encounter Care Teams Group Therapist Relationship Specialty Start Date End Date Marika Hendrickson DO [address] [place] [phone] PCP - General Family Practice 06/13/17 documented as of this encounter
--- OUTSIDE RECORDS SUMMARY | 2024-11-02 12:41 | XMS_ITS | Encounter Summary ---
Author Organization [facility] Address [address] [place] [address] Care Team Providers Care Waterproofer Name Role Phone Marika Hendrickson DO Primary Care Provider Encounter Details Date Type Department Care Team (Late st Contact Info) Description 05/26/2007 Outpatient [facility] [address] [place], [place] [address] Jose Roberto Leon MD [address] [address] Social History Tobacco Use Types Packs/Day Years Used Date Smoking Tobacco: Never Assessed Comments Unknown Sex and Gender Information Value Date Recorded Sex Assigned at Not on file Legal Sex Female 6:00 AM COMMUNITY SERVICES 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 diff 09/18/2020 09/18/2020 09/19/2020 2:51 PM CDT documented as of this encounter Care Teams Waterproofer Relationship Specialty Start Date End Date Marika Hendrickson DO [address] [place] [address] PCP - General Family Practice 06/13/17 documented as of this encounter
--- OUTSIDE RECORDS SUMMARY | 2024-11-02 12:41 | XMS_ITS | Encounter Summary ---
Author Organization [facility] Address [address] [place] [address] Care Team Providers Care Electrical Systems Designer Name Role Phone Marika Hendrickson DO Primary Care Provider Encounter Details Date Type Department Care Team (Late st Contact Info) Description 02/07/2008 Outpatient [facility] [address] [place] [address] Sb Tobar Social History Tobacco Use Types Packs/Day Years Used Date Smoking Tobacco: Every Day Cigarettes 1 35 Alcohol Use Standard Drinks/Week Comments Yes 0 (1 standard drink = 0.6 oz pur e alcohol) very rarely Comments No Sex and Gender Information Value Date Recorded Sex Assigned at Not on file Legal Sex Female 6:00 AM INSTRUCTION DEAN Gender Identity Not on file Sexual Orientation Not on file documented as of this encounter Plan of Treatment Not on file documented as of this encounter Visit Diagnoses Not on filedocumented in this encounter Additional Health Concerns Infection Onset Date Last Indicated Resolved Time R/O C. diff 09/18/2020 09/18/2020 09/19/2020 2:51 PM CDT documented as of this encounter Care Teams Electrical Systems Designer Relationship Specialty Start Date End Date Marika Hendrickson DO [address] [place] [phone] PCP - General Family Practice 06/13/17 documented as of this encounter
--- OUTSIDE RECORDS SUMMARY | 2024-11-02 12:41 | XMS_ITS | Encounter Summary ---
Author Organization [facility] Address [address] [place] [address] Care Team Providers Care Commutator Presser Name Role Phone Marika Hendrickson DO Primary Care Provider [phone] Encounter Details Date Type Department Care Team (Late st Contact Info) Description 02/12/2008 Outpatient [facility] [address] [place] [address] Other, [facility] NO ADDRESS ON FILE Social History Tobacco Use Types Packs/Day Years Used Date Smoking Tobacco: Every Day Cigarettes 1 35 Alcohol Use Standard Drinks/Week Comments Yes 0 (1 standard drink = 0.6 oz pur e alcohol) very rarely Comments No Sex and Gender Information Value Date Recorded Sex Assigned at Not on file Legal Sex Female 6:00 AM CREDIT INTERVIEWER Gender Identity Not on file Sexual Orientation Not on file documented as of this encounter Plan of Treatment Not on file documented as of this encounter Visit Diagnoses Not on filedocumented in this encounter Additional Health Concerns Infection Onset Date Last Indicated Resolved Time R/O C. diff 09/18/2020 09/18/2020 09/19/2020 2:51 PM CDT documented as of this encounter Care Teams Commutator Presser Relationship Specialty Start Date End Date Marika Hendrickson DO [address] [place] [address] PCP - General Family Practice 06/13/17 documented as of this encounter
--- OUTSIDE RECORDS SUMMARY | 2024-11-02 12:41 | XMS_ITS | Encounter Summary ---
Author Organization [facility] Address [address] [place] [address] Care Team Providers Care Land Law Examiner Name Role Phone Marika Hendrickson DO Primary Care Provider Encounter Details Date Type Department Care Team (Latest Contact Info) Description 01/19/2008 Outpatient [facility] [place] [address] [facility] [address] [place] [address] Sb Tobar Disorders of Sacrum; Esophageal Reflux; Unspecified Hearing Loss; Unspecified Arthropathy, Site Unspecified; Depressive Disorder, not Elsewhere Classified; Headache; Unspecified Constipation Social History Tobacco Use Types Packs/Day Years Used Date Smoking Tobacco: Every Day Cigarettes 1 35 Alcohol Use Standard Drinks/Week Comments Yes 0 (1 standard drink = 0.6 oz pur e alcohol) very rarely Comments No Sex and Gender Information Value Date Recorded Sex Assigned at Not on file Legal Sex Female 6:00 AM INDUSTRIAL HYGIENE 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 diff 09/18/2020 09/18/2020 09/19/2020 2:51 PM CDT documented as of this encounter Care Teams Land Law Examiner Relationship Specialty Start Date End Date Marika Hendrickson DO [address] [place] [address] PCP - General Family Practice 06/13/17 documented as of this encounter
--- OUTSIDE RECORDS SUMMARY | 2024-11-02 12:41 | XMS_ITS | Encounter Summary ---
Author Organization [facility] Address [address] [place] [address] Care Team Providers Care Nicking Machine Operator Name Role Phone Marika Hendrickson DO Primary Care Provider Encounter Details Date Type Department Care Team (Latest Contact Info) Description 02/16/2008 Outpatient Historical [facility] Pain Management Procedures [address] [place] [address] Sb Tobar Disorders of Sacrum; Unspecified Arthropathy, Site Unspecified Social History Tobacco Use Types Packs/Day Years Used Date Smoking Tobacco: Every Day Cigarettes 1 35 Alcohol Use Standard Drinks/Week Comments Yes 0 (1 standard drink = 0.6 oz pur e alcohol) very rarely Comments No Sex and Gender Information Value Date Recorded Sex Assigned at Not on file Legal Sex Female 6:00 AM FOREIGN LAW CONSULTANT Gender Identity Not on file Sexual Orientation Not on file documented as of this encounter Plan of Treatment Not on file documented as of this encounter Procedures Procedure Name Priority Date/Time Associated Diagnosis Comments XR FLUORO GREATER THAN 1 HOUR Routine 02/21/2008 12:24 PM FOREIGN LAW CONSULTANT documented in this encounter Results * XR FLUORO > 1 HOUR (02/21/2008 12:24 PM FOREIGN LAW CONSULTANT) Anatomical Region Laterality Modality Other 02/21/2008 12:2 4 PM FOREIGN LAW CONSULTANT Narrative 02/21/2008 12:24 PM FOREIGN LAW CONSULTANT Finalized by interface [employer]tex utility. No report expected. Procedure Note 04/14/2008 Finalized by interface Lambda OpticalSystemsup utility. No report expected. Sb Tobar DIAGNOSTIC IMAGING ORDERABLES Fi nal Result documented in this encounter Visit Diagnoses Diagnosis Disorders of sacrum Arthropathy, unspecified, site unspecified documented in this encounter Additional Health Concerns Infection Onset Date Last Indicated Resolved Time R/O C. diff 09/18/2020 09/18/2020 09/19/2020 2:51 PM CDT documented as of this encounter Care Teams Nicking Machine Operator Relationship Specialty Start Date End Date Marika Hendrickson DO [address] [place] [address] PCP - General Family Practice 06/13/17 documented as of this encounter
--- OUTSIDE RECORDS SUMMARY | 2024-11-02 12:41 | XMS_ITS | Encounter Summary ---
Author Organization [facility] Address [address] [place] [address] Care Team Providers Care Credit Operations Specialist Name Role Phone Marika Hendrickson DO Primary Care Provider Encounter Details Date Type Department Care Team (Latest Contact Info) Description 12/19/2007 Outpatient Historical [facility] Physical Therapy [address] [place] [address] [place] [address] Byron Mendoza MD NO ADDRESS ON FILE Disorders of Sacrum Social History Tobacco Use Types Packs/Day Years Used Date Smoking Tobacco: Every Day Cigarettes 1 35 Alcohol Use Standard Drinks/Week Comments Yes 0 (1 standard drink = 0.6 oz pur e alcohol) very rarely Comments No Sex and Gender Information Value Date Recorded Sex Assigned at Not on file Legal Sex Female 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 diff 09/18/2020 09/18/2020 09/19/2020 2:51 PM CDT documented as of this encounter Care Teams Credit Operations Specialist Relationship Specialty Start Date End Date Marika Hendrickson DO [address] [place] [address] PCP - General Family Practice 06/13/17 documented as of this encounter
--- OUTSIDE RECORDS SUMMARY | 2024-11-02 12:41 | XMS_ITS | Encounter Summary ---
Author Organization [facility] Address [address] [place] [address] Care Team Providers Care Cement Boat And Barge Loader Name Role Phone Marika Hendrickson DO Primary Care Provider [phone] Encounter Details Date Type Department Care Team (Late st Contact Info) Description 02/26/2008 Outpatient Historical [facility] [address] [place] [address] Other, [facility] NO ADDRESS ON FILE Social History Tobacco Use Types Packs/Day Years Used Date Smoking Tobacco: Every Day Cigarettes 1 35 Alcohol Use Standard Drinks/Week Comments Yes 0 (1 standard drink = 0.6 oz pur e alcohol) very rarely Comments No Sex and Gender Information Value Date Recorded Sex Assigned at Not on file Legal 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 diff 09/18/2020 09/18/2020 09/19/2020 2:51 PM CDT documented as of this encounter Care Teams Cement Boat And Barge Loader Relationship Specialty Start Date End Date Marika Hendrickson DO [address] [place] [address] PCP - General Family Practice 06/13/17 documented as of this encounter
--- OUTSIDE RECORDS SUMMARY | 2024-11-02 12:41 | XMS_ITS | Encounter Summary ---
Author Organization [facility] Address [address] [place] [address] Care Team Providers Care Carburetor Mechanic Name Role Phone Marika Hendrickson DO Primary Care Provider [phone]- [phone] Encounter Details Date Type Department Care Team (Latest Contact Info) Description 12/30/2005 Outpatient [facility] [address] [place] [address] Hussein Verma MD NO ADDRESS ON FILE Unspecified Myalgia and Myositis (Primary Dx); Pain in Joint, Multiple Sites Social History Tobacco Use Types Packs/Day Years Used Date Smoking Tobacco: Never Assessed Comments Unknown Sex and Gender Information Value Date Recorded Sex Assigned at Not on file Legal 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 diff 09/18/2020 09/18/2020 09/19/2020 2:51 PM CDT documented as of this encounter Care Teams Carburetor Mechanic Relationship Specialty Start Date End Date Marika Hendrickson DO [address] [place] [address] PCP - General Family Practice 06/13/17 documented as of this encounter
--- OUTSIDE RECORDS SUMMARY | 2024-11-02 12:41 | XMS_ITS | Encounter Summary ---
Author Organization [facility] Address [address] [place] [address] Care Team Providers Care Regional Transfer Liaison Name Role Phone Marika Hendrickson DO Primary Care Provider [phone]- [phone] Encounter Details Date Type Department Care Team (Latest Contact Info) Description 06/07/2006 Outpatient Historical [facility] Medicine- [place] [address] [place] [address] Lionel Dallas PA NO ADDRESS ON FILE Depressive Disorder, not Elsewhere Classified (Primary Dx); Headache; Lumbago; Syncope and Collapse Social History Tobacco Use Types Packs/Day Years Used Date Smoking Tobacco: Never Assessed Comments Unknown Sex and Gender Information Value Date Recorded Sex Assigned at Not on file 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 diff 09/18/2020 09/18/2020 09/19/2020 2:51 PM CDT documented as of this encounter Care Teams Regional Transfer Liaison Relationship Specialty Start Date End Date Marika Hendrickson DO [address] [place] [address] PCP - General Family Practice 06/13/17 documented as of this encounter
--- OUTSIDE RECORDS SUMMARY | 2024-11-02 12:41 | XMS_ITS | Encounter Summary ---
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 diff 09/18/2020 09/18/2020 09/19/2020 2:51 PM CDT documented as of this encounter Care Teams Coroner Transport Technician Relationship Specialty Start Date End Date Marika Hendrickson DO [address] [place] [address] PCP - General Family Practice 06/13/17 documented as of this encounter
--- OUTSIDE RECORDS SUMMARY | 2024-11-02 12:41 | XMS_ITS | Encounter Summary ---
Author Organization [facility] Address [address] [place] [address] Care Team Providers Care Block Sealer Name Role Phone Marika Hendrickson DO Primary Care Provider Encounter Details Date Type Department Care Team (Late st Contact Info) Description 01/29/2008 Outpatient [facility] [address] [place] [address] Sb Tobar Social History Tobacco Use Types Packs/Day Years Used Date Smoking Tobacco: Every Day Cigarettes 1 35 Alcohol Use Standard Drinks/Week Comments Yes 0 (1 standard drink = 0.6 oz pur e alcohol) very rarely Comments No Sex and Gender Information Value Date Recorded Sex Assigned at Not on file Legal Sex Female 6:00 AM CONDUCTOR YARD Gender Identity Not on file Sexual Orientation Not on file documented as of this encounter Plan of Treatment Not on file documented as of this encounter Visit Diagnoses Not on filedocumented in this encounter Additional Health Concerns Infection Onset Date Last Indicated Resolved Time R/O C. diff 09/18/2020 09/18/2020 09/19/2020 2:51 PM CDT documented as of this encounter Care Teams Block Sealer Relationship Specialty Start Date End Date Marika Hendrickson DO [address] [place] [address] PCP - General Family Practice 06/13/17 documented as of this encounter
--- OUTSIDE RECORDS SUMMARY | 2024-11-02 12:41 | XMS_ITS | Encounter Summary ---
Author Organization [facility] Address [address] [place] [address] Care Team Providers Care Veterinary Parasitologist Name Role Phone Marika Hendrickson DO Primary Care Provider Encounter Details Date Type Department Care Team (Latest Contact Info) Description 01/31/2008 Outpatient Historical [facility] Chronic Pain [address] 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 diff 09/18/2020 09/18/2020 09/19/2020 2:51 PM CDT documented as of this encounter Care Teams Veterinary Parasitologist Relationship Specialty Start Date End Date Marika Hendrickson DO [address] [place] [address] PCP - General Family Practice 06/13/17 documented as of this encounter
--- OUTSIDE RECORDS SUMMARY | 2024-11-02 12:41 | XMS_ITS | Encounter Summary ---
Author Organization [facility] Address [address] [place] [address] Care Team Providers Care Band Saw Operator Cake Cutting Name Role Phone Marika Hendrickson DO Primary Care Provider Encounter Details Date Type Department Care Team (Latest Contact Info) Description 01/12/2008 Outpatient [facility] [id number] [place] [address] [place] [address] Marquis Hodge MD [facility] [place] [address] Saphenous Vein Injury Social History Tobacco Use Types Packs/Day Years Used Date Smoking Tobacco: Every Day Cigarettes 1 35 Alcohol Use Standard Drinks/Week Comments Yes 0 (1 standard drink = 0.6 oz pur e alcohol) very rarely Comments No Sex and Gender Information Value Date Recorded Sex Assigned at Not on file Legal Sex Female 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 No significant morphologic abnormalities. Interpreted by: Marquis Red M.D. Blood specimen (specimen) 01/12/2008 12:59 PM CDT 01/12/2008 10:33 PM CDT us Marquis Hodge MD HEMATOLOGY ORDERABLES Final Result Performing Organization Address City/[facility]/ZIP Co de Phone Number INTERFACE SYSTEM Refer to clinic/hospital department [facility] CLIA# [id number] [address] [place] [id number] * GC DNA AMPLIFICATION (01/12/2008 12:57 PM CDT) FINAL REPORT DNA Amplification Assay: negative for Neisseria gonorrhoeae The [facility] [employer] CT/NG test by Polymerase Chain Reaction (PCR) is approved for testing only on endocervical and male urethral swab specimens and male urine. The use of specimens from any other body site has not been validated. Detection of Neisseria gonorrhoeae is dependent on the number of organisms present in the specimen. This may be affected by patient factors, stage of infection, specimen collection methods, transport, storage and processing procedures. INTERFACE SYSTEM Specimen from genital system (specimen) CERVIX UTERI STRUCTURE / Unknown 01/12/2008 12:57 PM CDT 01/12/2008 10:48 PM CDT us Marquis Hodge MD MICROBIOLOGY - GENERAL [facility] Final Result Performing Organization Address City/[facility]/ZIP Co de Phone Number INTERFACE SYSTEM Refer to clinic/hospital department * CHLAMYDIA DNA AMPLIFICATION (01/12/2008 12:57 PM CDT) FINAL REPORT DNA Amplification Assay: negative for Chlamydia trachomatis --------- The [facility] [employer] Amplicor CT/NG test by Polymerase Chain Reaction (PCR) is approved for testing only on endocervical and male urethral swab specimens and urine. The use of specimens from any other body site has not been validated. Dectection of Chlamadia trachomatis is dependent on the number of organisms present in the specimen. This may be affected by patient factors, stage of infection, specimen collection methods, transport, storage and processing procedures. INTERFACE SYSTEM Specimen from genital system (specimen) CERVIX UTERI STRUCTURE / Unknown 01/12/2008 12:57 PM CDT 01/12/2008 10:48 PM CDT us Marquis Hodge MD MICROBIOLOGY - [facility] Final Result INTERFACE SYSTEM Refer to clinic/hospital department documented in this encounter Visit Diagnoses Diagnosis Saphenous vein injury documented in this encounter Additional Health Concerns Infection Onset Date Last Indicated Resolved Time R/O C. diff 09/18/2020 09/18/2020 09/19/2020 2:51 PM CDT documented as of this encounter Care Teams Band Saw Operator Cake Cutting Relationship Specialty Start Date End Date Marika Hendrickson DO [address] [place] [address] PCP - General Family Practice 06/13/17 documented as of this encounter
--- OUTSIDE RECORDS SUMMARY | 2024-11-02 12:41 | XMS_ITS | Encounter Summary ---
Author Organization [facility] Address [address] [place] [address] Care Team Providers Care Manager Enterprise Name Role Phone Marika Hendrickson DO Primary Care Provider Encounter Details Date Type Department Care Team (Latest Contact Info) Description 02/01/2008 Outpatient Historical [facility] Pain Management Procedures [address] [place] [address] Sb Tobar Thoracic or Lumbosacral Neuritis or Radiculitis, Unspecified; Esophageal Reflux; Unspecified Hearing Loss; Depressive Disorder, not Elsewhere Classified; Headache; Unspecified Constipation; Personal History of Allergy to Sulfonamides; Personal History of Allergy to Other Specified Medicinal Agents Social History Tobacco Use Types Packs/Day Years Used Date Smoking Tobacco: Every Day Cigarettes 1 35 Alcohol Use Standard Drinks/Week Comments Yes 0 (1 standard drink = 0.6 oz pur e alcohol) very rarely Comments No Sex and Gender Information Value Date Recorded Sex Assigned at Not on file Legal Sex Female 6:00 AM SPD MANAGER Gender Identity Not on file Sexual Orientation Not on file documented as of this encounter Plan of Treatment Not on file documented as of this encounter Procedures Procedure Name Priority Date/Time Associated Diagnosis Comments XR FLUORO GREATER THAN 1 HOUR Routine 02/07/2008 12:56 PM SPD MANAGER documented in this encounter Results * XR FLUORO > 1 HOUR (02/07/2008 12:56 PM SPD MANAGER) Anatomical Region Laterality Modality Other 02/07/2008 12:5 6 PM SPD MANAGER Narrative 02/07/2008 12:56 PM SPD MANAGER Finalized by interface cleanup utility. No report expected. Procedure Note 04/14/2008 Finalized by interface cleanup utility. No report expected. Sb Tobar DIAGNOSTIC IMAGING ORDERABLES Fi nal Result documented in this encounter Visit Diagnoses Diagnosis Thoracic or lumbosacral neuritis or radiculitis, unspecified Esophageal reflux Unspecified hearing loss Depressive disorder, not elsewhere classified Headache(784.0) Headache Unspecified constipation Personal history of allergy to sulfonamides Personal history of allergy to other specified medicinal agents documented in this encounter Additional Health Concerns Infection Onset Date Last Indicated Resolved Time R/O C. diff 09/18/2020 09/18/2020 09/19/2020 2:51 PM CDT documented as of this encounter Care Teams Manager Enterprise Relationship Specialty Start Date End Date Marika Hendrickson DO [address] [place] [address] PCP - General Family Practice 06/13/17 documented as of this encounter
--- OUTSIDE RECORDS SUMMARY | 2024-11-02 12:41 | XMS_ITS | Encounter Summary ---
Author Organization [facility] Address [address] [place] [address] Care Team Providers Care Turfgrass Technician Name Role Phone Marika Hendrickson DO Primary Care Provider +1- [phone] Encounter Details Date Type Department Care Team (Late st Contact Info) Description 02/19/2008 Outpatient [facility] [address] [place] [address] Other, [facility] NO ADDRESS ON FILE Social History Tobacco Use Types Packs/Day Years Used Date Smoking Tobacco: Every Day Cigarettes 1 35 Alcohol Use Standard Drinks/Week Comments Yes 0 (1 standard drink = 0.6 oz pur e alcohol) very rarely Comments No Sex and Gender Information Value Date Recorded Sex Assigned at Not on file 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 diff 09/18/2020 09/18/2020 09/19/2020 2:51 PM CDT documented as of this encounter Care Teams Turfgrass Technician Relationship Specialty Start Date End Date Mairka Hendrickson DO [address] [place] [address] PCP - General Family Practice 06/13/17 documented as of this encounter
--- OUTSIDE RECORDS SUMMARY | 2024-11-02 12:41 | XMS_ITS | Encounter Summary ---
Author Organization [facility] Address [address] [place] [address] Care Team Providers Care Mechatronics Technician Name Role Phone Marika Hendrickson DO Primary Care Provider Encounter Details Date Type Department Care Team (Latest Contact Info) Description 01/20/2006 Outpatient [facility] [address] [place] [address] Hussein Verma MD NO ADDRESS ON FILE Unspecified Myalgia and Myositis (Primary Dx); Allergic Rhinitis, Cause Unspecified; Unspecified Migraine without Mention of Intractable Migraine Social History Tobacco Use Types Packs/Day Years Used Date Smoking Tobacco: Never Assessed Comments Unknown Sex and Gender Information Value Date Recorded Sex Assigned at Not on file Legal Sex Female 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 diff 09/18/2020 09/18/2020 09/19/2020 2:51 PM CDT documented as of this encounter Care Teams Mechatronics Technician Relationship Specialty Start Date End Date Marika Hendrickson DO [address] [place] [address] PCP - General Family Practice 06/13/17 documented as of this encounter
--- OUTSIDE RECORDS SUMMARY | 2024-11-02 12:41 | XMS_ITS | Encounter Summary ---
Author Organization 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 diff 09/18/2020 09/18/2020 09/19/2020 2:51 PM CDT documented as of this encounter Care Teams Accountant Budget Relationship Specialty Start Date End Date Marika Hendrickson DO [address] [place] [address] PCP - General Family Practice 06/13/17 documented as of this encounter
--- OUTSIDE RECORDS SUMMARY | 2024-11-02 12:41 | XMS_ITS | Encounter Summary ---
Author Organization [facility] Address [address] [place] [address] Care Team Providers Care Food Handler Name Role Phone Marika Hendrickson DO Primary Care Provider [phone]- [phone] Encounter Details Date Type Department Care Team (Late st Contact Info) Description 02/13/2008 Outpatient Historical [facility] [address] [place] [address] Other, [facility] NO ADDRESS ON FILE Social History Tobacco Use Types Packs/Day Years Used Date Smoking Tobacco: Every Day Cigarettes 1 35 Alcohol Use Standard Drinks/Week Comments Yes 0 (1 standard drink = 0.6 oz pur e alcohol) very rarely Comments No Sex and Gender Information Value Date Recorded Sex Assigned at Not on file Legal Sex Female 6:00 AM HOSPITAL CODER Gender Identity Not on file Sexual Orientation Not on file documented as of this encounter Plan of Treatment Not on file documented as of this encounter Visit Diagnoses Not on filedocumented in this encounter Additional Health Concerns Infection Onset Date Last Indicated Resolved Time R/O C. diff 09/18/2020 09/18/2020 09/19/2020 2:51 PM CDT documented as of this encounter Care Teams Food Handler Relationship Specialty Start Date End Date Marika Hendrickson DO [address] [place] [address] PCP - General Family Practice 06/13/17 documented as of this encounter
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
--- OUTSIDE RECORDS SUMMARY | 2024-11-02 12:42 | XMS_ITS | Encounter Summary ---
Author Organization [facility] Address [address] [place] [address] Care Team Providers Care Dispatch Manager Name Role Phone Marika Hendrickson DO Primary Care Provider [phone] Encounter Details Date Type Department Care Team (Latest Contact Info) Description 01/05/2002 Outpatient [facility] Medicine [place] [address] 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 diff 09/18/2020 09/18/2020 09/19/2020 2:51 PM CDT documented as of this encounter Care Teams Dispatch Manager Relationship Specialty Start Date End Date Marika Hendrickson DO [address] [place] [address] PCP - General Family Practice 06/13/17 documented as of this encounter
--- OUTSIDE RECORDS SUMMARY | 2024-11-02 12:42 | XMS_ITS | Encounter Summary ---
Author Organization [facility] Address [address] [place] [address] Care Team Providers Care Woolen Mill Utility Worker Name Role Phone Marika Hendrickson DO Primary Care Provider Encounter Details Date Type Department Care Team (Late st Contact Info) Description 01/10/2008 Outpatient Historical [facility] [address] [place] [address] Sb Tobar Social History Tobacco Use Types Packs/Day Years Used Date Smoking Tobacco: Every Day Cigarettes 1 35 Alcohol Use Standard Drinks/Week Comments Yes 0 (1 standard drink = 0.6 oz pur e alcohol) very rarely Comments No Sex and Gender Information Value Date Recorded Sex Assigned at Not on file Legal Sex Female 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 diff 09/18/2020 09/18/2020 09/19/2020 2:51 PM CDT documented as of this encounter Care Teams Woolen Mill Utility Worker Relationship Specialty Start Date End Date Marika Hendrickson DO [address] [place] [address] PCP - General Family Practice 06/13/17 documented as of this encounter
--- OUTSIDE RECORDS SUMMARY | 2024-11-02 12:42 | XMS_ITS | Encounter Summary ---
Author Organization [email or web address] Address [address] [place] [address] Care Team Providers Care Subway Guard Name Role Phone Marika Hendrickson DO Primary Care Provider Encounter Details Date Type Department Care Team (Latest Contact Info) Description 01/08/2008 Outpatient Historical [facility] Pain Management Procedures [address] 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 No report expected. Procedure Note 04/14/2008 Finalized by interface cleanup utility. No report expected. Sb Tobar DIAGNOSTIC IMAGING ORDERABLES Fi nal Result documented in this encounter Visit Diagnoses Diagnosis Arthropathy, unspecified, site unspecified Esophageal reflux Unspecified constipation Personal history of allergy to sulfonamides Personal history of allergy to other specified medicinal agents documented in this encounter Additional Health Concerns Infection Onset Date Last Indicated Resolved Time R/O C. diff 09/18/2020 09/18/2020 09/19/2020 2:51 PM CDT documented as of this encounter Care Teams Subway Guard Relationship Specialty Start Date End Date Marika Hendrickson DO [address] [place] [address] PCP - General Family Practice 06/13/17 documented as of this encounter
--- OUTSIDE RECORDS SUMMARY | 2024-11-02 12:42 | XMS_ITS | Encounter Summary ---
Author Organization [facility] Address [address] [place] [address] Care Team Providers Care Buffing Line Set Up Worker Name Role Phone Marika Hendrickson DO Primary Care Provider Encounter Details Date Type Department Care Team (Latest Contact Info) Description 06/23/2005 Outpatient [facility] Medicine [place] [address] [facility] [address] [place] [address] Lionel Dallas PA NO ADDRESS ON FILE Allergy, Unspecified not Elsewhere Classified (Primary Dx); Pain in Joint, Site Unspecified; Depressive Disorder, not Elsewhere Classified Social History Tobacco Use Types Packs/Day Years Used Date Smoking Tobacco: Never Assessed Comments Unknown Sex and Gender Information Value Date Recorded Sex Assigned at Not on file Legal Sex Female 6:00 AM FACILITIES CLERK Gender Identity Not on file Sexual Orientation Not on file documented as of this encounter Plan of Treatment Not on file documented as of this encounter Visit Diagnoses Diagnosis Allergy, unspecified not elsewhere classified- Primary Pain in joint, site unspecified Depressive disorder, not elsewhere classified documented in this encounter Additional Health Concerns Infection Onset Date Last Indicated Resolved Time R/O C. diff 09/18/2020 09/18/2020 09/19/2020 2:51 PM CDT documented as of this encounter Care Teams Buffing Line Set Up Worker Relationship Specialty Start Date End Date Marika Hendrickson DO [address] [place] [address] PCP - General Family Practice 06/13/17 documented as of this encounter
--- OUTSIDE RECORDS SUMMARY | 2024-11-02 12:42 | XMS_ITS | Encounter Summary ---
Author Organization [facility] Address [address] [place] [address] Care Team Providers Care Contract Designer Name Role Phone Marika Hendrickson DO Primary Care Provider [phone]- [phone] Encounter Details Date Type Department Care Team (Latest Contact Info) Description 03/13/2002 Outpatient Historical [facility] Family Medicine- [address] [address] [place] [address] Gold Gaxiola DO NO ADDRESS ON FILE HEADACHE (Primary Dx) Social History Tobacco Use Types Packs/Day Years Used Date Smoking Tobacco: Never Assessed Comments Unknown Sex and Gender Information Value Date Recorded Sex Assigned at Not on file Legal Sex Female 6:00 AM MORTGAGE BANKER Gender Identity Not on file Sexual Orientation Not on file documented as of this encounter Plan of Treatment Not on file documented as of this encounter Visit Diagnoses Diagnosis Headache(784.0)- Primary Headache documented in this encounter Additional Health Concerns Infection Onset Date Last Indicated Resolved Time R/O C. diff 09/18/2020 09/18/2020 09/19/2020 2:51 PM CDT documented as of this encounter Care Teams Contract Designer Relationship Specialty Start Date End Date Marika Hendrickson DO [address] [place] [address] PCP - General Family Practice 06/13/17 documented as of this encounter
--- OUTSIDE RECORDS SUMMARY | 2024-11-02 12:42 | XMS_ITS | Encounter Summary ---
Author Organization [facility] Address [address] [place] [address] Care Team Providers Care Scientific Writer Name Role Phone Marika Hendrickson DO Primary Care Provider Encounter Details Date Type Department Care Team (Latest Contact Info) Description 07/20/2002 Outpatient [facility] Family Medicine- [place] [address] [place] [address] Gold Gaxiola DO NO ADDRESS ON FILE DEPRESSIVE DISORDER NEC (Primary Dx); HEADACHE; ALLERGY, UNSPECIFIED Social History Tobacco Use Types Packs/Day Years Used Date Smoking Tobacco: Never Assessed Comments Unknown Sex and Gender Information Value Date Recorded Sex Assigned at Not on file Legal Sex Female 6:00 AM COST REPORT CLERK Gender Identity Not on file Sexual Orientation Not on file documented as of this encounter Plan of Treatment Not on file documented as of this encounter Visit Diagnoses Diagnosis Depressive disorder, not elsewhere classified- Primary Headache(784.0) Headache Allergy, unspecified not elsewhere classified documented in this encounter Additional Health Concerns Infection Onset Date Last Indicated Resolved Time R/O C. diff 09/18/2020 09/18/2020 09/19/2020 2:51 PM CDT documented as of this encounter Care Teams Scientific Writer Relationship Specialty Start Date End Date Marika Hendrickson DO [address] [place] [address] PCP - General Family Practice 06/13/17 documented as of this encounter
--- OUTSIDE RECORDS SUMMARY | 2024-11-02 12:42 | XMS_ITS | Encounter Summary ---
Author Organization [facility] Address [address] [place] [address] Care Team Providers Care Asphalt Patcher Name Role Phone Marika Hendrickson DO Primary Care Provider [phone]- [phone] Encounter Details Date Type Department Care Team (Latest Contact Info) Description 12/17/[address] [facility] Medicine [address] [phone] Geovanny Mendieta NP NO ADDRESS ON FILE VAGINITIS NOS (Primary Dx); ACUTE SINUSITIS NOS; ACUTE PHARYNGITIS; POSTMENOPAUSAL HORMONAL REPLACEMENT [place] Social History Tobacco Use Types Packs/Day Years Used Date Smoking Tobacco: Never Assessed Comments Unknown Sex and Gender Information Value Date Recorded Sex Assigned at Not on file Legal Sex Female 6:00 AM COPY CUTTER Gender Identity Not on file Sexual Orientation Not on file documented as of this encounter Plan of Treatment Not on file documented as of this encounter Visit Diagnoses Diagnosis Vaginitis and vulvovaginitis, unspecified- Primary Acute sinusitis, unspecified Acute pharyngitis Need for prophylactic hormone replacement therapy (postmenopausal) documented in this encounter Additional Health Concerns Infection Onset Date Last Indicated Resolved Time R/O C. diff 09/18/2020 09/18/2020 09/19/2020 2:51 PM CDT documented as of this encounter Care Teams Asphalt Patcher Relationship Specialty Start Date End Date Marika Hendrickson DO [address] [place] [address] PCP - General Family Practice 06/13/17 documented as of this encounter
--- OUTSIDE RECORDS SUMMARY | 2024-11-02 12:42 | XMS_ITS | Encounter Summary ---
Author Organization [facility] Address [address] [place] [address] Care Team Providers Care Travel Accommodations Rater Name Role Phone Marika Hendrickson DO Primary Care Provider +1- [phone] Encounter Details Date Type Department Care Team (Latest Contact Info) Description 07/02/2004 Outpatient [facility] Medicine [address] [place] [address] Geovanny Mendieta NP NO ADDRESS ON FILE ACUTE SINUSITIS NOS (Primary Dx); DIARRHEA NOS; SPRAIN OF ANKLE NOS Social History Tobacco Use Types Packs/Day Years Used Date Smoking Tobacco: Never Assessed Comments Unknown Sex and Gender Information Value Date Recorded Sex Assigned at Not on file Legal Sex Female 6:00 AM 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 diff 09/18/2020 09/18/2020 09/19/2020 2:51 PM CDT documented as of this encounter Care Teams Travel Accommodations Rater Relationship Specialty Start Date End Date Marika Hendrickson DO [address] [place] [address] PCP - General Family Practice 06/13/17 documented as of this encounter
--- OUTSIDE RECORDS SUMMARY | 2024-11-02 12:42 | XMS_ITS | Encounter Summary ---
Author Organization [facility] Address [address] [place] [address] Care Team Providers Care Aviation Engineer Name Role Phone Marika Hendrickson DO Primary Care Provider [phone] Reason for Referral * Outpatient Services (Routine) - Closed Specialty Diagnoses / Procedures Referred By Contac t Referred To Contact Diagnoses Other (abnormal) findings on radiological examination of breast Procedures MAMMO BREAST US RT Marquis Hodge MD [address] [place] [phone] Phone: tel: fax: Referral ID Status Reason Start Date Expiration Date Visits Re quested Visits Authorized [id number] Closed 01/20/2011 01/20/2012 1 1 * Outpatient Services (Routine) - Closed Specialty Diagnoses / Procedures Referred By Contac t Referred To Contact Diagnoses Other (abnormal) findings on radiological examination of breast Procedures MAMMO DIGITAL DIAG BILAT Marquis Hodge MD [address] [place] [phone] Phone: tel: fax: Referral ID Status Reason Start Date Expiration Date Visits Re quested Visits Authorized [id number] Closed 12/25/2010 12/25/2011 1 1 Encounter Details Date Type Department Care Team (Latest Contact Info) Description 12/25/2010 Ancillary Orders [facility] [place] [address] [place] [phone] Marquis Hodge MD [address] [facility] [place] [phone] Other (abnormal) findings on radiological examination of breast Social History Tobacco Use Types Packs/Day Years Used Date Smoking Tobacco: Every Day Cigarettes 1 35 Alcohol Use Standard Drinks/Week Comments Yes 0 (1 standard drink = 0.6 oz pur e alcohol) very rarely Comments No Sex and Gender Information Value Date Recorded Sex Assigned at Not on file 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 The patient presents for further evaluation. She has no current complaints. Her mother and maternal aunt had breast cancer. COMPARISON: 12/08/2010. FINDINGS: MAMMOGRAM: Bilateral CC and MLO views were performed digitally, in part for improved visualization as the initial study was done as an analog exam. The breast tissue is composed of scattered fibroglandular densities. In the right upper outer quadrant, there is some dense tissue that has a slightly nodular appearance. There are also two areas of possible nodularity seen inferiorly on the lateral view of the right breast, likely in the lower outer quadrant. The right lateral breast is recommended for ultrasound. Bilateral digital magnification views were also performed. These demonstrate punctate bilateral retroareolar microcalcifications. There are a few more calcifications on the right when compared with the left, but they do appear similar in shape and distribution bilaterally. No suspicious cluster is identified on either side. This digital mammogram was also analyzed by the Computer Aided Detection System (CAD), [employer], Version 8.3. RIGHT BREAST ULTRASOUND: In the right lower outer quadrant, there are a few areas of fibrocystic change. One of these is at 8-3, measuring 5 mm. Another is at 8:30-2, and the third is at 9-4. These areas are similar in size, shape, and location with the faint nodules seen mammographically in the inferior breast on the MLO view. In the right upper outer quadrant, there is a focus of fibrocystic change, but no suspicious sonographic findings are identified. CONCLUSION: 1. Bilateral low-suspicion microcalcifications in the retroareolar aspect of each breast. Options of biopsy versus six-month follow-up were discussed with the patient. As there is not a particularly suspicious area in either breast, and they do appear similar bilaterally, a six-month follow-up evaluation is reasonable. The patient is in agreement with this approach. 2. Right-sided nodularity corresponds with areas of fibrocystic change. No suspicious findings are identified mammographically or by ultrasound. The nodularity can also be evaluated in six months to insure stability. The results were discussed with the patient. She was given a results and recommendations letter. Cesilia - transcribed in Epic - Procedure Note Kaylene Ramos MD - 01/27/2011 BILATERAL DIGITAL DIAGNOSTIC MAMMOGRAM AND RIGHT BREAST ULTRASOUND: HISTORY: Baseline screening mammogram dated 12/08/2010 revealed bilateralmicrocalcifications as well as nodularity on the right. The patientpresents for further evaluation. She has no current complaints. Hermother and maternal aunt had breast cancer. COMPARISON: 12/08/2010. FINDINGS: MAMMOGRAM: Bilateral CC and MLO views were performed digitally, in part for improvedvisualization as the initial study was done as an analog exam. The breasttissue is composed of scattered fibroglandular densities. In the rightupper outer quadrant, there is some dense tissue that has a slightlynodular appearance. There are also two areas of possible nodularity seeninferiorly on the lateral view of the right breast, likely in the lowerouter quadrant. The right lateral breast is recommended for ultrasound. Bilateral digital magnification views were also performed. Thesedemonstrate punctate bilateral retroareolar microcalcifications. Thereare a few more calcifications on the right when compared with the left,but they do appear similar in shape and distribution bilaterally. Nosuspicious cluster is identified on either side. This digital mammogram was also analyzed by the Computer Aided DetectionSystem (CAD), [employer], Version 8.3. RIGHT BREAST ULTRASOUND: In the right lower outer quadrant, there are a few areas of fibrocysticchange. One of these is at 8-3, measuring 5 mm. Another is at 8:30-2,and the third is at 9-4. These areas are similar in size, shape, andlocation with the faint nodules seen mammographically in the inferiorbreast on the MLO view. In the right upper outer quadrant, there is afocus of fibrocystic change, but no suspicious sonographic findings areidentified. CONCLUSION: 1. Bilateral low-suspicion microcalcifications in the retroareolaraspect of each breast. Options of biopsy versus six-month follow-up werediscussed with the patient. As there is not a particularly suspiciousarea in either breast, and they do appear similar bilaterally, a ssl-cosxuerlfij-je evaluation is reasonable. The patient is in agreement with thisapproach. 2. Right-sided nodularity corresponds with areas of fibrocystic change.No suspicious findings are identified mammographically or by ultrasound.The nodularity can also be evaluated in six months to insure stability. The results were discussed with the patient. She was given a results andrecommendations letter. CHRISSY/melvina - transcribed in [facility] - [facility] Marquis Hodge MD MAMMO ORDERABLES Final Resu lt * (ABNORMAL) MAMMO DIGITAL DIAG BILAT (01/20/2011 2:22 PM CDT) Anatomical Region Laterality Modality Breast Bilateral Mammography Narrative 01/27/2011 6:53 AM CDT BILATERAL DIGITAL DIAGNOSTIC MAMMOGRAM AND RIGHT BREAST ULTRASOUND: HISTORY: Baseline screening mammogram dated 12/08/2010 revealed bilateral microcalcifications as well as nodularity on the right. The patient presents for further evaluation. She has no current complaints. Her mother and maternal aunt had breast cancer. COMPARISON: 12/08/2010. FINDINGS: MAMMOGRAM: Bilateral CC and MLO views were performed digitally, in part for improved visualization as the initial study was done as an analog exam. The breast tissue is composed of scattered fibroglandular densities. In the right upper outer quadrant, there is some dense tissue that has a slightly nodular appearance. There are also two areas of possible nodularity seen inferiorly on the lateral view of the right breast, likely in the lower outer quadrant. The right lateral breast is recommended for ultrasound. Bilateral digital magnification views were also performed. These demonstrate punctate bilateral retroareolar microcalcifications. There are a few more calcifications on the right when compared with the left, but they do appear similar in shape and distribution bilaterally. No suspicious cluster is identified on either side. This digital mammogram was also analyzed by the Computer Aided Detection System (CAD), [employer], Version 8.3. RIGHT BREAST ULTRASOUND: In the right lower outer quadrant, there are a few areas of fibrocystic change. One of these is at 8-3, measuring 5 mm. Another is at 8:30-2, and the third is at 9-4. These areas are similar in size, shape, and location with the faint nodules seen mammographically in the inferior breast on the MLO view. In the right upper outer quadrant, there is a focus of fibrocystic change, but no suspicious sonographic findings are identified. CONCLUSION: 1. Bilateral low-suspicion microcalcifications in the retroareolar aspect of each breast. Options of biopsy versus six-month follow-up were discussed with the patient. As there is not a particularly suspicious area in either breast, and they do appear similar bilaterally, a six-month follow-up evaluation is reasonable. The patient is in agreement with this approach. 2. Right-sided nodularity corresponds with areas of fibrocystic change. No suspicious findings are identified mammographically or by ultrasound. The nodularity can also be evaluated in six months to insure stability. The results were discussed with the patient. She was given a results and recommendations letter. Cesilia - transcribed in Epic - Procedure Note Kaylene Ramos MD - 01/27/2011 BILATERAL DIGITAL DIAGNOSTIC MAMMOGRAM AND RIGHT BREAST ULTRASOUND: HISTORY: Baseline screening mammogram dated 12/08/2010 revealed bilateralmicrocalcifications as well as nodularity on the right. The patientpresents for further evaluation. She has no current complaints. Hermother and maternal aunt had breast cancer. COMPARISON: 12/08/2010. FINDINGS: MAMMOGRAM: Bilateral CC and MLO views were performed digitally, in part for improvedvisualization as the initial study was done as an analog exam. The breasttissue is composed of scattered fibroglandular densities. In the rightupper outer quadrant, there is some dense tissue that has a slightlynodular appearance. There are also two areas of possible nodularity seeninferiorly on the lateral view of the right breast, likely in the lowerouter quadrant. The right lateral breast is recommended for ultrasound. Bilateral digital magnification views were also performed. Thesedemonstrate punctate bilateral retroareolar microcalcifications. Thereare a few more calcifications on the right when compared with the left,but they do appear similar in shape and distribution bilaterally. Nosuspicious cluster is identified on either side. This digital mammogram was also analyzed by the Computer Aided DetectionSystem (CAD), [employer], Version 8.3. RIGHT BREAST ULTRASOUND: In the right lower outer quadrant, there are a few areas of fibrocysticchange. One of these is at 8-3, measuring 5 mm. Another is at 8:30-2,and the third is at 9-4. These areas are similar in size, shape, andlocation with the faint nodules seen mammographically in the inferiorbreast on the MLO view. In the right upper outer quadrant, there is afocus of fibrocystic change, but no suspicious sonographic findings areidentified. CONCLUSION: 1. Bilateral low-suspicion microcalcifications in the retroareolaraspect of each breast. Options of biopsy versus six-month follow-up werediscussed with the patient. As there is not a particularly suspiciousarea in either breast, and they do appear similar bilaterally, a iow-xyiwzvixtss-tu evaluation is reasonable. The patient is in agreement with thisapproach. 2. Right-sided nodularity corresponds with areas of fibrocystic change.No suspicious findings are identified mammographically or by ultrasound.The nodularity can also be evaluated in six months to insure stability. The results were discussed with the patient. She was given a results andrecommendations letter. Cesilia - transcribed in [facility] Marquis Hodge MD MAMMO ORDERABLES Final Resu lt documented in this encounter Visit Diagnoses Diagnosis Other (abnormal) findings on radiological examination of breast Other (abnormal) findings on radiological examination of breast Other (abnormal) findings on radiological examination of breast documented in this encounter Additional Health Concerns Infection Onset Date Last Indicated Resolved Time R/O C. diff 09/18/2020 09/18/2020 09/19/2020 2:51 PM CDT documented as of this encounter Care Teams Aviation Engineer Relationship Specialty Start Date End Date Marika Hendrickson DO [address] [place] [address] PCP - General Family Practice 06/13/17 documented as of this encounter
--- OUTSIDE RECORDS SUMMARY | 2024-11-02 12:42 | XMS_ITS | Encounter Summary ---
Author Organization [facility] Address [address] [place] [address] Care Team Providers Care Registered Representative Name Role Phone Marika Hendrickson DO Primary Care Provider Encounter Details Date Type Department Care Team (Latest Contact Info) Description 10/13/2005 Outpatient [facility] Medicine [address] [place] [address] Lionel Dallas PA NO ADDRESS ON FILE Depressive Disorder, not Elsewhere Classified (Primary Dx); Pain in Joint, Forearm; Abdominal Pain, Unspecified Site Social History Tobacco Use Types Packs/Day Years Used Date Smoking Tobacco: Never Assessed Comments Unknown Sex and Gender Information Value Date Recorded Sex Assigned at Not on file 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 diff 09/18/2020 09/18/2020 09/19/2020 2:51 PM CDT documented as of this encounter Care Teams Registered Representative Relationship Specialty Start Date End Date Marika Hendrickson DO [address] [place] [address] PCP - General Family Practice 06/13/17 documented as of this encounter
--- OUTSIDE RECORDS SUMMARY | 2024-11-02 12:42 | XMS_ITS | Encounter Summary ---
Author Organization [facility] Address [address] [place] [address] Care Team Providers Care Silviculture Teacher Name Role Phone Marika Hendrickson DO Primary Care Provider Encounter Details Date Type Department Care Team (Latest Contact Info) Description 12/19/2007 Outpatient [facility] [place] [address] [facility] [address] [place] [address] Sb Tobar Thoracic or Lumbosacral Neuritis or Radiculitis, Unspecified; Lumbago; Personal History of Injury, Presenting Hazards to Health; Unspecified Essential Hypertension; Esophageal Reflux; Unspecified Arthropathy, Site Unspecified; Unspecified Constipation; Unspecified Hearing Loss; Personal History of Allergy to Sulfonamides; Personal [...] on file 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 Gender Identity Not on file Sexual Orientation Not on file documented as of this encounter Plan of Treatment Not on file documented as of this encounter Visit Diagnoses Diagnosis Thoracic or lumbosacral neuritis or radiculitis, unspecified Lumbago Personal history of injury, presenting hazards to health Unspecified essential hypertension Esophageal reflux Arthropathy, unspecified, site unspecified Unspecified constipation Unspecified hearing loss Personal history of allergy to sulfonamides Personal history of allergy to other specified medicinal agents documented in this encounter Additional Health Concerns Infection Onset Date Last Indicated Resolved Time R/O C. diff 09/18/2020 09/18/2020 09/19/2020 2:51 PM CDT documented as of this encounter Care Teams Silviculture Teacher Relationship Specialty Start Date End Date Marika Hendrickson DO [address] [place] [address] PCP - General Family Practice 06/13/17 documented as of this encounter
--- OUTSIDE RECORDS SUMMARY | 2024-11-02 12:42 | XMS_ITS | Encounter Summary ---
Author Organization [facility] Address [address] [place] [address] Care Team Providers Care Warehouse Helper Name Role Phone Marika Hendrickson DO Primary Care Provider Encounter Details Date Type Department Care Team (Latest Contact Info) Description 06/17/2005 Outpatient [facility] Medicine [address] [place] [phone] Geovanny Mendieta NP NO ADDRESS ON FILE Acute Pharyngitis (Primary Dx); Acute Sinusitis, Unspecified Social History Tobacco Use Types Packs/Day Years Used Date Smoking Tobacco: Never Assessed Comments Unknown Sex and Gender Information Value Date Recorded Sex Assigned at Not on file 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 diff 09/18/2020 09/18/2020 09/19/2020 2:51 PM CDT documented as of this encounter Care Teams Warehouse Helper Relationship Specialty Start Date End Date Marika Hendrickson DO [address] [place] [phone] PCP - General Family Practice 06/13/17 documented as of this encounter
--- OUTSIDE RECORDS SUMMARY | 2024-11-02 12:42 | XMS_ITS | Encounter Summary ---
Author Organization [facility] Address [address] [place] [address] Care Team Providers Care Cotton Header Name Role Phone Marika Hendrickson DO Primary Care Provider Encounter Details Date Type Department Care Team (Latest Contact Info) Description 11/21/2003 Outpatient [facility] Medicine [place] [address] [facility] [address] [place] [phone] Shyann Arceo, TERRAZZO POLISHER HELPER [address] [place] [phone] PROLAPSE OF VAGINAL WALL (Primary Dx); MUCOUS POLYP OF CERVIX; SCREENING MAL NEOP-BREAST,UNSPEC; SCREENING MAL NEOP-RECTUM Social History Tobacco Use Types Packs/Day Years Used Date Smoking Tobacco: Never Assessed Comments Unknown Sex and Gender Information Value Date Recorded Sex Assigned at Not on file 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 diff 09/18/2020 09/18/2020 09/19/2020 2:51 PM CDT documented as of this encounter Care Teams Cotton Header Relationship Specialty Start Date End Date Marika Hendrickson DO [address] [place] [phone] PCP - General Family Practice 06/13/17 documented as of this encounter
--- OUTSIDE RECORDS SUMMARY | 2024-11-02 12:42 | XMS_ITS | Encounter Summary ---
Author Organization [facility] Address [address] [place] [address] Care Team Providers Care Greenhouse Florist Name Role Phone Marika Hendrickson DO Primary Care Provider Encounter Details Date Type Department Care Team (Late st Contact Info) Description 12/27/[address] [facility] Pain Management Procedures [address] 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 No report expected. Procedure Note 04/14/2008 Finalized by interface [employer] utility. No report expected. Sb Tobar DIAGNOSTIC IMAGING ORDERABLES Fi nal Result documented in this encounter Visit Diagnoses Not on filedocumented in this encounter Additional Health Concerns Infection Onset Date Last Indicated Resolved Time R/O C. diff 09/18/2020 09/18/2020 09/19/2020 2:51 PM CDT documented as of this encounter Care Teams Greenhouse Florist Relationship Specialty Start Date End Date Marika Hendrickson DO [address] [place] [address] PCP - General Family Practice 06/13/17 documented as of this encounter
--- OUTSIDE RECORDS SUMMARY | 2024-11-02 12:42 | XMS_ITS | Encounter Summary ---
Author Organization [facility] Address [address] [place] [address] Care Team Providers Care Operations Program Manager Name Role Phone Marika Hendrickson DO Primary Care Provider Reason for Referral * Outpatient Services (Routine) - Closed Specialty Diagnoses / Procedures Referred By Contsilvia hidalgo Referred To Contact Diagnoses Screening mammogram Procedures MAMMO SCREENING BILAT MOBILE Marquis Hodge MD [facility] [place] [address] Phone: tel: fax: Referral ID Status Reason Start Date Expiration Date Visits Re quested Visits Authorized [id number] Closed 12/08/2010 12/08/2011 1 1 Encounter Details Date Type Department Care Team (Late st Contact Info) Description 12/08/2010 Ancillary Orders [place] [address] [facility] 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 The mammogram of 12/08/10 was reviewed. The patient has some well defined nodularity on the right as well as calcifications in the subareolar region. On the left, there are a few calcifications noted. No suspicious masses are identified. I would recommend that the patient return for bilateral true lateral projections as well as magnification views of the calcifications bilaterally in both the CC and lateral projection. IMPRESSION: The patient needs to return for additional imaging, bilaterally. *Addendum dictated on 12/24/10 KG/eaw Impressions 12/14/2010 11:36 AM CDT : There are findings bilaterally that deserve comparison with the prior films. If those films do not become available in the next 4 weeks the patient will need to return for additional evaluation, beginning with bilateral true lateral views. KG/eaw Narrative 12/14/2010 11:36 AM CDT BILATERAL SCREENING MAMMOGRAM: Bilateral CC and MLO views were obtained. I have no prior films for comparison. We are in the process of retrieving those. There is moderate parenchymal density. There are several areas of nodularity bilaterally as well as calcifications and these findings need to be compared with the prior exams. In addition, the patient's family history is significant in that both her mother as well as a maternal aunt have been diagnosed with breast cancer. This mammogram was also analyzed by the Computer Aided Detection system (CAD), R2 ImageChecker, Version 3.1. Procedure Note Samira Jerez MD - 12/25/2010 BILATERAL SCREENING MAMMOGRAM: Bilateral CC and MLO views were obtained. I have no prior films forcomparison. We are in the process of retrieving those. There is moderateparenchymal density. There are several areas of nodularity bilaterally aswell as calcifications and these findings need to be compared with theprior exams. In addition, the patient's family history is significant in that both hermother as well as a maternal aunt have been diagnosed with breastcancer. This mammogram was also analyzed by the Computer Aided Detection system(CAD), R2 ImageChecker, Version 3.1. IMPRESSION: There are findings bilaterally that deserve comparison withthe prior films. If those films do not become available in the next 4weeks the patient will need to return for additional evaluation, beginningwith bilateral true lateral views. KG/eaw us Marquis Hodge MD MAMMO ORDERABLES Edited Res ult - Final documented in this encounter Visit Diagnoses Diagnosis Screening mammogram Other screening mammogram Screening mammogram Other screening mammogram documented in this encounter Additional Health Concerns Infection Onset Date Last Indicated Resolved Time R/O C. diff 09/18/2020 09/18/2020 09/19/2020 2:51 PM CDT documented as of this encounter Care Teams Operations Program Manager Relationship Specialty Start Date End Date Marika Hendrickson DO [address] [place] [address] PCP - General Family Practice 06/13/17 documented as of this encounter
--- OUTSIDE RECORDS SUMMARY | 2024-11-02 12:42 | XMS_ITS | Encounter Summary ---
Author Organization [facility] Address [address] [place] [address] Care Team Providers Care Door Worker Name Role Phone Marika Hendrickson DO Primary Care Provider +1- [phone] Encounter Details Date Type Department Care Team (Latest Contact Info) Description 06/26/2004 Outpatient [facility] Family Medicine- [address] [place] [phone] Geovanny Mendieta NP NO ADDRESS ON FILE ABDOMINAL PAIN UNSPEC SITE (Primary Dx); NAUSEA WITH VOMITING; DIARRHEA NOS Social History Tobacco Use Types Packs/Day Years Used Date Smoking Tobacco: Never Assessed Comments Unknown Sex and Gender Information Value Date Recorded Sex Assigned at Not on file Legal Sex Female 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 diff 09/18/2020 09/18/2020 09/19/2020 2:51 PM CDT documented as of this encounter Care Teams Door Worker Relationship Specialty Start Date End Date Marika Hendrickson DO [address] [place] [address] PCP - General Family Practice 06/13/17 documented as of this encounter
--- OUTSIDE RECORDS SUMMARY | 2024-11-02 12:42 | XMS_ITS | Encounter Summary ---
Author Organization [facility] Address [address] [place] [address] Care Team Providers Care Unit Aid Name Role Phone Marika Hendrickson DO Primary Care Provider Encounter Details Date Type Department Care Team (Late st Contact Info) Description 01/03/2008 [facility]patient [facility] [address] [place] [address] Sb Tobar Social History Tobacco Use Types Packs/Day Years Used Date Smoking Tobacco: Every Day Cigarettes 1 35 Alcohol Use Standard Drinks/Week Comments Yes 0 (1 standard drink = 0.6 oz pur e alcohol) very rarely Comments No Sex and Gender Information Value Date Recorded Sex Assigned at Not on file Legal Sex Female 6:00 AM DERRICK WORKER WELL SERVICE Gender Identity Not on file Sexual Orientation Not on file documented as of this encounter Plan of Treatment Not on file documented as of this encounter Visit Diagnoses Not on filedocumented in this encounter Additional Health Concerns Infection Onset Date Last Indicated Resolved Time R/O C. diff 09/18/2020 09/18/2020 09/19/2020 2:51 PM CDT documented as of this encounter Care Teams Unit Aid Relationship Specialty Start Date End Date Marika Hendrickson DO [address] [place] [phone] PCP - General Family Practice 06/13/17 documented as of this encounter
--- OUTSIDE RECORDS SUMMARY | 2024-11-02 12:42 | XMS_ITS | Encounter Summary ---
Author Organization [facility] Address [address] [place] [address] Care Team Providers Care Professor Of Poultry Science Name Role Phone Marika Hendrickson DO Primary Care Provider Encounter Details Date Type Department Care Team (Latest Contact Info) Description 11/11/2004 Outpatient [facility] Family Medicine [address] [place] [phone] Lionel Dallas PA NO ADDRESS ON FILE ACUTE URI NOS (Primary Dx) Social History Tobacco Use Types Packs/Day Years Used Date Smoking Tobacco: Never Assessed Comments Unknown Sex and Gender Information Value Date Recorded Sex Assigned at Not on file Legal Sex Female 6: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 diff 09/18/2020 09/18/2020 09/19/2020 2:51 PM CDT documented as of this encounter Care Teams Professor Of Poultry Science Relationship Specialty Start Date End Date Marika Hendrickson DO [address] [facility] [place] [phone] PCP - General Family Practice 3/12/18 documented as of this encounter
--- OUTSIDE RECORDS SUMMARY | 2024-11-02 12:42 | XMS_ITS | Encounter Summary ---
Author Organization [facility] Address [address] [place] [address] Care Team Providers Care Student Support Services Director Name Role Phone Marika Hendrickson DO Primary Care Provider Encounter Details Date Type Department Care Team (Latest Contact Info) Description 04/15/2004 Outpatient [facility] Medicine [address] [place] [phone] Lionel Dallas, GERARDO NO ADDRESS ON FILE SPRAIN OF ANKLE NOS (Primary Dx) Social History Tobacco Use Types Packs/Day Years Used Date Smoking Tobacco: Never Assessed Comments Unknown Sex and Gender Information Value Date Recorded Sex Assigned at Not on file Legal Sex Female 6:00 AM BATH MIXER Gender Identity Not on file Sexual Orientation Not on file documented as of this encounter Plan of Treatment Not on file documented as of this encounter Visit Diagnoses Diagnosis Sprain of ankle, unspecified site- Primary documented in this encounter Additional Health Concerns Infection Onset Date Last Indicated Resolved Time R/O C. diff 09/18/2020 09/18/2020 09/19/2020 2:51 PM CDT documented as of this encounter Care Teams Student Support Services Director Relationship Specialty Start Date End Date Marika Hendrickson DO [address] [place] [phone] PCP - General Family Practice 06/13/17 documented as of this encounter
--- OUTSIDE RECORDS SUMMARY | 2024-11-02 12:42 | XMS_ITS | Encounter Summary ---
Author Organization [facility] Address [address] [place] [address] Care Team Providers Care Data Integrity Consultant Name Role Phone Marika Hendrickson DO Primary Care Provider +1- [phone] Encounter Details Date Type Department Care Team (Latest Contact Info) Description 05/26/[address] [facility] Orthopedics- [address] [place] [address] Willy Newman MD NO ADDRESS ON FILE JOINT PAIN-ANKLE (Primary Dx); SPRAIN OF ANKLE NOS Social History Tobacco Use Types Packs/Day Years Used Date Smoking Tobacco: Never Assessed Comments Unknown Sex and Gender Information Value Date Recorded Sex Assigned at Not on file Legal Sex Female 6:00 AM CALLIOPE PLAYER Gender Identity Not on file Sexual Orientation Not on file documented as of this encounter Plan of Treatment Not on file documented as of this encounter Visit Diagnoses Diagnosis Pain in joint, ankle and foot- Primary Sprain of ankle, unspecified site documented in this encounter Additional Health Concerns Infection Onset Date Last Indicated Resolved Time R/O C. diff 09/18/2020 09/18/2020 09/19/2020 2:51 PM CDT documented as of this encounter Care Teams Data Integrity Consultant Relationship Specialty Start Date End Date Marika Hendrickson DO [address] [place] [address] PCP - General Family Practice 06/13/17 documented as of this encounter
--- OUTSIDE RECORDS SUMMARY | 2024-11-02 12:42 | XMS_ITS | Encounter Summary ---
Author Organization [facility] Address [address] [place] [address] Care Team Providers Care Results Engineer Name Role Phone Marika Hendrickson DO Primary Care Provider Reason for Referral * Outpatient Services (Routine) - Closed Specialty Diagnoses / Procedures Referred By Contac t Referred To Contact Diagnoses Other (abnormal) findings on radiological examination of breast Procedures MAMMO DIGITIZED STUDY Marquis Hodge MD [address] [place] [phone] Phone: tel: fax: Referral ID Status Reason Start Date Expiration Date Visits Re quested Visits Authorized [id number] Closed 01/18/2011 01/18/2012 1 1 Encounter Details Date Type Department Care Team (Latest Contact Info) Description 01/18/2011 Ancillary Orders [facility] [address] [address] Marquis Hodge MD [address] [place] [phone] Other (abnormal) findings on radiological examination of breast Social History Tobacco Use Types Packs/Day Years Used Date Smoking Tobacco: Every Day Cigarettes 1 35 Alcohol Use Standard Drinks/Week Comments Yes 0 (1 standard drink = 0.6 oz pur e alcohol) very rarely Comments No Sex and Gender Information Value Date Recorded Sex Assigned at Not on file Legal Sex Female 6:00 AM CLINICAL ACADEMIC ALLERGIST Gender Identity Not on file Sexual Orientation Not on file documented as of this encounter Plan of Treatment Not on file documented as of this encounter Results * MAMMO DIGITIZED STUDY (12/08/2010 3:23 PM CDT) Narrative Ayesha An, RT - 01/18/2011 3:23 PM CDT Order information only. Exam was auto-finalized. Procedure Note Ayesha An, RT - 01/18/2011 Order information only. Exam was auto-finalized. Marquis Hodge MD DIAGNOSTIC IMAGING ORDERABL ES Final Result documented in this encounter Visit Diagnoses Diagnosis Other (abnormal) findings on radiological examination of breast Other (abnormal) findings on radiological examination of breast documented in this encounter Additional Health Concerns Infection Onset Date Last Indicated Resolved Time R/O C. diff 09/18/2020 09/18/2020 09/19/2020 2:51 PM CDT documented as of this encounter Care Teams Results Engineer Relationship Specialty Start Date End Date Marika Hendrickson DO [address] [place] [address] PCP - General Family Practice 06/13/17 documented as of this encounter
--- OUTSIDE RECORDS SUMMARY | 2024-11-02 12:42 | XMS_ITS | Encounter Summary ---
Author Organization [facility] Address [address] [place] [address] Care Team Providers Care Glass Designer Name Role Phone Marika Hendrickson DO Primary Care Provider +1- [phone] Encounter Details Date Type Department Care Team (Latest Contact Info) Description 10/23/2002 Outpatient [facility] Family Medicine- [address] [address] [place] [phone] Gold Gaxiola DO NO ADDRESS ON FILE Dermatitis due to plant (Primary Dx); MYALGIA AND MYOSITIS NOS; BACKACHE NOS Social History Tobacco Use Types Packs/Day Years Used Date Smoking Tobacco: Never Assessed Comments Unknown Sex and Gender Information Value Date Recorded Sex Assigned at Not on file Legal 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 diff 09/18/2020 09/18/2020 09/19/2020 2:51 PM CDT documented as of this encounter Care Teams Glass Designer Relationship Specialty Start Date End Date Marika Hendrickson DO [address] [place] [phone] PCP - General Family Practice 06/13/17 documented as of this encounter
--- OUTSIDE RECORDS SUMMARY | 2024-11-02 12:42 | XMS_ITS | Encounter Summary ---
Author Organization [facility] Address [address] [place] [address] Care Team Providers Care Public Aid Eligibility Assistant Name Role Phone Marika Hendrickson DO Primary Care Provider Encounter Details Date Type Department Care Team (Latest Contact Info) Description 12/17/2003 Outpatient [facility] Medicine [place] [address] [facility] [address] [place] [phone] Shyann Arceo, FIRE HYDRANT OPERATOR [address] [place] [phone] PROLAPSE OF VAGINAL WALL (Primary Dx) Social History Tobacco Use Types Packs/Day Years Used Date Smoking Tobacco: Never Assessed Comments Unknown Sex and Gender Information Value Date Recorded Sex Assigned at Not on file Legal Sex Female 6:00 AM PRESCHOOL ADVISER Gender Identity Not on file Sexual Orientation Not on file documented as of this encounter Plan of Treatment Not on file documented as of this encounter Visit Diagnoses Diagnosis Prolapse of vaginal finley without mention of uterine prolapse- Primary documented in this encounter Additional Health Concerns Infection Onset Date Last Indicated Resolved Time R/O C. diff 09/18/2020 09/18/2020 09/19/2020 2:51 PM CDT documented as of this encounter Care Teams Public Aid Eligibility Assistant Relationship Specialty Start Date End Date Marika Hendrickson DO [address] [place] [address] PCP - General Family Practice 06/13/17 documented as of this encounter
--- OUTSIDE RECORDS SUMMARY | 2024-11-02 12:42 | XMS_ITS | Encounter Summary ---
Author Organization [facility] Address [address] [place] [address] Care Team Providers Care Engine Monitor Name Role Phone Marika Hendrickson DO Primary Care Provider +1- [phone] Encounter Details Date Type Department Care Team (Latest Contact Info) Description 05/20/2004 Outpatient [facility] Medicine [place] [address] [facility] [address] [place] [phone] Lionel Dallas PA NO ADDRESS ON FILE SPRAIN OF ANKLE NOS (Primary Dx); Hemangioma skin Social History Tobacco Use Types Packs/Day Years Used Date Smoking Tobacco: Never Assessed Comments Unknown Sex and Gender Information Value Date Recorded Sex Assigned at Not on file Legal Sex Female 6:00 AM ASSISTANT MEDIA BUYER Gender Identity Not on file Sexual Orientation Not on file documented as of this encounter Plan of Treatment Not on file documented as of this encounter Visit Diagnoses Diagnosis Sprain of ankle, unspecified site- Primary Hemangioma skin Hemangioma of skin and subcutaneous tissue documented in this encounter Additional Health Concerns Infection Onset Date Last Indicated Resolved Time R/O C. diff 09/18/2020 09/18/2020 09/19/2020 2:51 PM CDT documented as of this encounter Care Teams Engine Monitor Relationship Specialty Start Date End Date Marika Hendrickson DO [address] [place] [phone] PCP - General Family Practice 06/13/17 documented as of this encounter
--- OUTSIDE RECORDS SUMMARY | 2024-11-02 12:42 | XMS_ITS | Encounter Summary ---
Author Organization [facility] Address [address] [place] [address] Care Team Providers Care Publications Sales Representative Name Role Phone Marika Hendrickson DO Primary Care Provider Encounter Details Date Type Department Care Team (Latest Contact Info) Description 01/14/2004 Outpatient [facility] Medicine [place] [address] [facility] [address] [place] [phone] Shyann Arceo, MEDICAL AFFAIRS DIRECTOR [address] [place] [phone] Vaccine for influenza (Primary Dx) Social History Tobacco Use Types Packs/Day Years Used Date Smoking Tobacco: Never Assessed Comments Unknown Sex and Gender Information Value Date Recorded Sex Assigned at Not on file Legal Sex Female 6:00 AM BOX COVERING MACHINE OPERATOR Gender Identity Not on file Sexual Orientation Not on file documented as of this encounter Plan of Treatment Not on file documented as of this encounter Visit Diagnoses Diagnosis Vaccine for influenza- Primary Need for prophylactic vaccination and inoculation against influenza documented in this encounter Additional Health Concerns Infection Onset Date Last Indicated Resolved Time R/O C. diff 09/18/2020 09/18/2020 09/19/2020 2:51 PM CDT documented as of this encounter Care Teams Publications Sales Representative Relationship Specialty Start Date End Date Marika Hendrickson DO [address] [place] [address] PCP - General Family Practice 06/13/17 documented as of this encounter
--- OUTSIDE RECORDS SUMMARY | 2024-11-02 12:42 | XMS_ITS | Encounter Summary ---
Author Organization [facility] Address [address] [place] [address] Care Team Providers Care Owner/Operator Name Role Phone Marika Hendrickson DO Primary Care Provider +1- [phone] Encounter Details Date Type Department Care Team (Latest Contact Info) Description 02/19/2004 Outpatient [facility] Medicine [place] [address] [facility] [address] [place] [phone] Lionel Dallas PA NO ADDRESS ON FILE HEADACHE (Primary Dx); CHEST PAIN NOS; ABDOMINAL PAIN UNSPEC SITE Social History Tobacco Use Types Packs/Day Years Used Date Smoking Tobacco: Never Assessed Comments Unknown Sex and Gender Information Value Date Recorded Sex Assigned at Not on file Legal Sex Female 6: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 diff 09/18/2020 09/18/2020 09/19/2020 2:51 PM CDT documented as of this encounter Care Teams Owner/Operator Relationship Specialty Start Date End Date Marika Hendrickson DO [address] [place] [address] PCP - General Family Practice 06/13/17 documented as of this encounter
--- OUTSIDE RECORDS SUMMARY | 2024-11-02 12:42 | XMS_ITS | Encounter Summary ---
Author Organization [facility] Address [address] [place] [address] Care Team Providers Care Supervisor Communications And Signals Name Role Phone Marika Hendrickson DO Primary Care Provider [phone]- [phone] Reason for Referral * Outpatient Services (Routine) - Closed Specialty Diagnoses / Procedures Referred By Contac t Referred To Contact Diagnoses Abnormal mammogram, unspecified Procedures MAMMO DIGITAL DIAG BILAT Marquis Hodge MD [facility] [place] [address] Phone: tel: fax: [facility] Pre-Registration [place] CALL TO MAKE APPOINTMENT ONLY [address] [place] [address] Phone: tel: fax: Referral ID Status Reason Start Date Expiration Date V isits Requested Visits Authorized [id number] Closed [facility] TO SCHEDULE (SGF) CRS to Schedule (SGF) 08/06/2011 08/05/2012 1 1 Encounter Details Date Type Department Care Team (Latest Contact Info) Description 08/06/2011 Ancillary Orders [facility] Pre-Registration [place] CALL TO MAKE APPOINTMENT ONLY [address] [place] [address] Marquis Hodge MD [address] [place] [address] Abnormal mammogram, unspecified Social History Tobacco Use Types Packs/Day Years Used Date Smoking Tobacco: Every Day Cigarettes 1 35 Alcohol Use Standard Drinks/Week Comments Yes 0 (1 standard drink = 0.6 oz pur e alcohol) very rarely Comments No Sex and Gender Information Value Date Recorded Sex Assigned at Not on file Legal Sex Female 6:00 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 I would recommend bilateral mammogram in six months, with the plan that if there has been no change, we can return her to routine annual screening mammograms. HARDEEP/vinh - uploaded from [employer] - Narrative 09/20/2011 2:48 PM CDT BILATERAL DIGITAL DIAGNOSTIC MAMMOGRAM: This bilateral mammogram was made as a six-month followup because of subareolar calcifications bilaterally, and some nonspecific right-sided nodularity, evaluated on 01/20/2011, following her screening mammogram of 12/08/2010. The calcifications bilaterally appear stable. No suspicious features are noted. The nodularity on the right is again noted and also appears stable. Mammogram otherwise appears unremarkable and stable as well. This digital mammogram was also analyzed by the Computer Aided Detection System (CAD), [employer] ImageChecker, Version 8.3. The patient received a result/recommendation letter. Procedure Note Hugo Coppola MD - 09/20/2011 BILATERAL DIGITAL DIAGNOSTIC MAMMOGRAM: This bilateral mammogram was made as a six-month followup because of subareolar calcifications bilaterally, and some nonspecific right-sided nodularity, evaluated on 01/20/2011, following her screening mammogram of 12/08/2010. The calcifications bilaterally appear stable. No suspicious features are noted. The nodularity on the right is again noted and also appears stable. Mammogram otherwise appears unremarkable and stable as well. This digital mammogram was also analyzed by the Computer Aided Detection System (CAD), [employer] ImageP2[employer]orcker, Version 8.3. The patient received a result/recommendation letter. IMPRESSION IMPRESSION: Satisfactory and stable bilateral six-month followup mammogram, as noted. I would recommend bilateral mammogram in six months, with the plan that if there has been no change, we can return her to routine annual screening mammograms. HARDEEP/vinh - uploaded from [employer] - us Marquis Hodge MD MAMMO ORDERABLES Final Resu lt documented in this encounter Visit Diagnoses Diagnosis Abnormal mammogram, unspecified Abnormal mammogram, unspecified documented in this encounter Additional Health Concerns Infection Onset Date Last Indicated Resolved Time R/O C. diff 09/18/2020 09/18/2020 09/19/2020 2:51 PM CDT documented as of this encounter Care Teams Supervisor Communications And Signals Relationship Specialty Start Date End Date Marika Hendrickson DO [address] [place] [address] PCP - General Family Practice 06/13/17 documented as of this encounter
--- OUTSIDE RECORDS SUMMARY | 2024-11-02 12:42 | XMS_ITS | Encounter Summary ---
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 CLERK EXAMINATION (Primary Dx); VAGINITIS NOS; BONE/SKIN NEOPLASM NOS Social History Tobacco Use Types Packs/Day Years Used Date Smoking Tobacco: Never Assessed Comments Unknown Sex and Gender Information Value Date Recorded Sex Assigned at Not on file Legal Sex Female 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 diff 09/18/2020 09/18/2020 09/19/2020 2:51 PM CDT documented as of this encounter Care Teams Park Manager Relationship Specialty Start Date End Date Marika Hendrickson DO [address] [place] [address] PCP - General Family Practice 06/13/17 documented as of this encounter
--- OUTSIDE RECORDS SUMMARY | 2024-11-02 12:42 | XMS_ITS | Encounter Summary ---
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 [address] [place] [address] Dale Oakley MD NO ADDRESS ON FILE PROLAPSE OF VAGINAL WALL (Primary Dx) Social History Tobacco Use Types Packs/Day Years Used Date Smoking Tobacco: Never Assessed Comments Unknown Sex and Gender Information Value Date Recorded Sex Assigned at Not on file Legal Sex Female 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
--- OUTSIDE RECORDS SUMMARY | 2024-11-02 12:42 | XMS_ITS | Encounter Summary ---
Author Organization [facility] Address [address] [place] [address] Care Team Providers Care Top Cager Name Role Phone Marika Hendrickson DO Primary Care Provider Encounter Details Date Type Department Care Team (Latest Contact Info) Description 01/02/2008 Outpatient Historical [facility] Pain Management Procedures [address] 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 No report expected. Procedure Note 04/14/2008 Finalized by interface cleanup utility. No report expected. Sb Tobar DIAGNOSTIC IMAGING ORDERABLES Fi nal Result documented in this encounter Visit Diagnoses Diagnosis Unspecified constipation Depressive disorder, not elsewhere classified Arthropathy, unspecified, site unspecified Unspecified hearing loss Esophageal reflux Personal history of allergy to sulfonamides documented in this encounter Additional Health Concerns Infection Onset Date Last Indicated Resolved Time R/O C. diff 09/18/2020 09/18/2020 09/19/2020 2:51 PM CDT documented as of this encounter Care Teams Top Cager Relationship Specialty Start Date End Date Marika Hendrickson DO [address] [place] [address] PCP - General Family Practice 06/13/17 documented as of this encounter
--- OUTSIDE RECORDS SUMMARY | 2024-11-02 12:42 | XMS_ITS | Encounter Summary ---
Author Organization [facility] Address [address] [place] [address] Care Team Providers Care Construction Worker Name Role Phone Marika Hendrickson DO Primary Care Provider Encounter Details Date Type Department Care Team (Late st Contact Info) Description 12/28/2007 [facility]patient [facility] [address] [place] [address] Sb Tobar Social History Tobacco Use Types Packs/Day Years Used Date Smoking Tobacco: Every Day Cigarettes 1 35 Alcohol Use Standard Drinks/Week Comments Yes 0 (1 standard drink = 0.6 oz pur e alcohol) very rarely Comments No Sex and Gender Information Value Date Recorded Sex Assigned at Not on file Legal Sex Female 6: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 diff 09/18/2020 09/18/2020 09/19/2020 2:51 PM CDT documented as of this encounter Care Teams Construction Worker Relationship Specialty Start Date End Date Marika Hendrickson DO [address] [place] [phone] PCP - General Family Practice 06/13/17 documented as of this encounter
--- OUTSIDE RECORDS SUMMARY | 2024-11-02 12:42 | XMS_ITS | Encounter Summary ---
Author Organization [facility] Address [address] [place] [address] Care Team Providers Care Prop Attendant Name Role Phone Marika Hendrickson DO Primary Care Provider Encounter Details Date Type Department Care Team (Latest Contact Info) Description 03/11/2004 Outpatient [facility] Family Medicine [place] [address] [facility] [address] [place] [phone] Lionel [place], GERARDO NO ADDRESS ON FILE SPRAIN OF ANKLE NOS (Primary Dx) Social History Tobacco Use Types Packs/Day Years Used Date Smoking Tobacco: Never Assessed Comments Unknown Sex and Gender Information Value Date Recorded Sex Assigned at Not on file Legal Sex Female 6:00 AM BEADWORKER Gender Identity Not on file Sexual Orientation [...] documented as of this encounter Care Teams Prop Attendant Relationship Specialty Start Date End Date Marika Hendrickson DO [address] [place] [address] PCP - General Family Practice 06/13/17 documented as of this encounter
--- OUTSIDE RECORDS SUMMARY | 2024-11-02 12:42 | XMS_ITS | Encounter Summary ---
Author Organization [facility] Address [address] [place] [address] Care Team Providers Care Cable Way Operator Name Role Phone Marika Hendrickson DO Primary Care Provider Encounter Details Date Type Department Care Team (Latest Contact Info) Description 12/30/2004 Outpatient [facility] Family Medicine [address] [place] [phone] Lionel Dallas PA NO ADDRESS ON FILE ACUTE URI NOS (Primary Dx) Social History Tobacco Use Types Packs/Day Years Used Date Smoking Tobacco: Never Assessed Comments Unknown Sex and Gender Information Value Date Recorded Sex Assigned at Not on file 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
--- OUTSIDE RECORDS SUMMARY | 2024-11-02 12:42 | XMS_ITS | Encounter Summary ---
Author Organization [facility] Address [address] [place] [address] Care Team Providers Care Employment Programs Analyst Name Role Phone Marika Hendrickson DO Primary Care Provider Encounter Details Date Type Department Care Team (Latest Contact Info) Description 11/21/2003 Outpatient [facility] Medicine [place] [address] [facility] [address] [place] [phone] Shyann Arceo, GUNITE MIXER [address] [place] [phone] GYNECOLOGIC EXAMINATION (Primary Dx) Social History Tobacco Use Types Packs/Day Years Used Date Smoking Tobacco: Never Assessed Comments Unknown Sex and Gender Information Value Date Recorded Sex Assigned at Not on file Legal Sex Female 6: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 diff 09/18/2020 09/18/2020 09/19/2020 2:51 PM CDT documented as of this encounter Care Teams Employment Programs Analyst Relationship Specialty Start Date End Date Marika Hendrickson DO [address] [place] [address] PCP - General Family Practice 06/13/17 documented as of this encounter
--- OUTSIDE RECORDS SUMMARY | 2024-11-02 12:42 | XMS_ITS | Encounter Summary ---
Author Organization [facility] Address [address] [place] [address] Care Team Providers Care Taker Out Name Role Phone Marika Hendrickson DO Primary Care Provider [phone] Encounter Details Date Type Department Care Team (Latest Contact Info) Description 07/15/[address] [phone] Lionel Dallas PA NO ADDRESS ON FILE Acute Bronchitis (Primary Dx); Other Diseases of Trachea and Bronchus Social History Tobacco Use Types Packs/Day Years Used Date Smoking Tobacco: Never Assessed Comments Unknown Sex and Gender Information Value Date Recorded Sex Assigned at Not on file Legal Sex Female 6:00 AM UPPER 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 diff 09/18/2020 09/18/2020 09/19/2020 2:51 PM CDT documented as of this encounter Care Teams Taker Out Relationship Specialty Start Date End Date Marika Hendrickson DO [address] [place] [address] PCP - General Family Practice 06/13/17 documented as of this encounter
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
--- OUTSIDE RECORDS SUMMARY | 2024-11-02 12:43 | XMS_ITS | Encounter Summary ---
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; Attention deficit disorder without mention of hyperactivity; Other specified arthropathy, shoulder region Social History Tobacco Use Types Packs/Day Years Used Date Smoking Tobacco: Never Assessed Comments Unknown Sex and Gender Information Value Date Recorded Sex Assigned at Not on file Legal Sex Female 6:00 AM ASSEMBLER CAMPER Gender Identity Not on file Sexual Orientation Not on file documented as of this encounter Plan of Treatment Not on file documented as of this encounter Visit Diagnoses Diagnosis Depressive disorder, not elsewhere classified- Primary 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 diff 09/18/2020 09/18/202009/19/2020 2:51 PM CDT documented as of this encounter Care Teams Lead Nitrate Processor Relationship Specialty Start Date End Date Marika Hendrickson DO [address] [place] [address] PCP - General Family Practice 06/13/17 documented as of this encounter
--- OUTSIDE RECORDS SUMMARY | 2024-11-02 12:43 | XMS_ITS | Encounter Summary ---
Author Organization [facility] Address [address] [place] [address] Care Team Providers Care Cellular Phone Repairer Name Role Phone Marika Hendrickson DO Primary Care Provider Encounter Details Date Type Department Care Team (Latest Contact Info) Description 11/17/[address] 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 diff 09/18/2020 09/18/2020 09/19/2020 2:51 PM CDT documented as of this encounter Care Teams Cellular Phone Repairer Relationship Specialty Start Date End Date Marika Hendrickson DO [address] [place] [address] PCP - General Family Practice 06/13/17 documented as of this encounter
--- OUTSIDE RECORDS SUMMARY | 2024-11-02 12:43 | XMS_ITS | Encounter Summary ---
Author Organization [facility] Address [address] [place] [address] Care Team Providers Care Instrumentation And Control Technician Name Role Phone Marika Hendrickson DO Primary Care Provider Encounter Details Date Type Department Care Team (Latest Contact Info) Description 09/19/1998 Outpatient Historical [facility] [address] [place] [address] Kong Luna DO [address] [place] [address] Backache, unspecified (Primary Dx); Cervicalgia; Anxiety state, unspecified Social History Tobacco Use Types Packs/Day Years Used Date Smoking Tobacco: Never Assessed Comments Unknown Sex and Gender Information Value Date Recorded Sex Assigned at Not on file Legal Sex Female 6:00 AM TRANSFORMER STOCK CLERK Gender Identity Not on file Sexual Orientation Not on file documented as of this encounter Plan of Treatment Not on file documented as of this encounter Visit Diagnoses Diagnosis Backache, unspecified- Primary Cervicalgia Anxiety state, unspecified documented in this encounter Additional Health Concerns Infection Onset Date Last Indicated Resolved Time R/O C. diff 09/18/2020 09/18/2020 09/19/2020 2:51 PM CDT documented as of this encounter Care Teams Instrumentation And Control Technician Relationship Specialty Start Date End Date Marika Hendrickson DO [address] [place] [address] PCP - General Family Practice 06/13/17 documented as of this encounter
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
--- OUTSIDE RECORDS SUMMARY | 2024-11-02 12:43 | XMS_ITS | Encounter Summary ---
Author Organization [facility] Address [address] [place] [address] Care Team Providers Care Terrazzo Worker Helper Name Role Phone Marika Hendrickson DO Primary Care Provider [phone] Encounter Details Date Type Department Care Team (Latest Contact Info) Description 04/10/1999 Outpatient Historical [facility] [address] [place] [address] Kong Luna DO [address] [place] [address] Other specified arthropathy, other specified sites (Primary Dx); Backache, unspecified; Nonallopathic lesion of pelvic region, not elsewhere classified; Nonallopathic lesion of thoracic region, not elsewhere classified Social History Tobacco Use Types Packs/Day Years Used Date Smoking Tobacco: Never Assessed Comments Unknown Sex and Gender Information Value Date Recorded Sex Assigned at Not on file Legal Sex Female 6:00 AM LINUX UNIX ENGINEER Gender Identity Not on file Sexual Orientation Not on file documented as of this encounter Plan of Treatment Not on file documented as of this encounter Visit Diagnoses Diagnosis Other specified arthropathy, other specified sites- Primary Backache, unspecified Nonallopathic lesion of pelvic region, not elsewhere classified Nonallopathic lesion of thoracic region, not elsewhere classified documented in this encounter Additional Health Concerns Infection Onset Date Last Indicated Resolved Time R/O C. diff 09/18/2020 09/18/2020 09/19/2020 2:51 PM CDT documented as of this encounter Care Teams Terrazzo Worker Helper Relationship Specialty Start Date End Date Marika Hendrickson DO [address] [place] [address] PCP - General Family Practice 06/13/17 documented as of this encounter
--- OUTSIDE RECORDS SUMMARY | 2024-11-02 12:43 | XMS_ITS | Encounter Summary ---
Author Organization [facility] Address [address] [place] [address] Care Team Providers Care Assembling Fabricator Name Role Phone Marika Hendrickson DO Primary Care Provider Encounter Details Date Type Department Care Team (Latest Contact Info) Description 07/29/1999 Outpatient Historical [facility] [address] [place] [address] Kong Luna DO [address] [place] [address] Headache(784.0) (Primary Dx); Nonallopathic lesion of cervical region, not elsewhere classified; Nonallopathic lesion of thoracic region, not elsewhere classified; Nonallopathic lesion of pelvic region, not elsewhere classified Social History Tobacco Use Types Packs/Day Years Used Date Smoking Tobacco: Never Assessed Comments Unknown Sex and Gender Information Value Date Recorded Sex Assigned at Not on file Legal Sex Female 6:00 AM TRANSPORT OPERATIONS INSPECTOR Gender Identity Not on file Sexual Orientation Not on file documented as of this encounter Plan of Treatment Not on file documented as of this encounter Visit Diagnoses Diagnosis Headache(784.0)- Primary Headache Nonallopathic lesion of cervical region, not elsewhere classified Nonallopathic lesion of thoracic region, not elsewhere classified Nonallopathic lesion of pelvic region, not elsewhere classified documented in this encounter Additional Health Concerns Infection Onset Date Last Indicated Resolved Time R/O C. diff 09/18/2020 09/18/2020 09/19/2020 2:51 PM CDT documented as of this encounter Care Teams Assembling Fabricator Relationship Specialty Start Date End Date Marika Hendrickson DO [address] [place] [address] PCP - General Family Practice 06/13/17 documented as of this encounter
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
--- OUTSIDE RECORDS SUMMARY | 2024-11-02 12:43 | XMS_ITS | Encounter Summary ---
Author Organization [facility] Address [address] [place] [address] Care Team Providers Care System Software Programmer Name Role Phone Marika Hendrickson DO Primary Care Provider [phone] Encounter Details Date Type Department Care Team (Latest Contact Info) Description 07/09/1999 Outpatient [facility] [place] 104 [facility] [address] [place] [address] Kong Luna DO [address] [place] [address] Osteoarthrosis, unspecified whether generalized or localized, shoulder region (Primary Dx); Pain in joint, shoulder region; Cervicalgia; Nonallopathic lesion of cervical region, not elsewhere classified Social History Tobacco Use Types Packs/Day Years Used Date Smoking Tobacco: Never Assessed Comments Unknown Sex and Gender Information Value Date Recorded Sex Assigned at Not on file Legal Sex Female 6:00 AM ROTARY SAW OPERATOR Gender Identity Not on file Sexual Orientation Not on file documented as of this encounter Plan of Treatment Not on file documented as of this encounter Visit Diagnoses Diagnosis Osteoarthrosis, unspecified whether generalized or localized, shoulder region- Primary Pain in joint, shoulder region Cervicalgia Nonallopathic lesion of cervical region, not elsewhere classified documented in this encounter Additional Health Concerns Infection Onset Date Last Indicated Resolved Time R/O C. diff 09/18/2020 09/18/2020 09/19/2020 2:51 PM CDT documented as of this encounter Care Teams System Software Programmer Relationship Specialty Start Date End Date Marika Hendrickson DO [address] [place] [address] PCP - General Family Practice 06/13/17 documented as of this encounter
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
--- OUTSIDE RECORDS SUMMARY | 2024-11-02 12:43 | XMS_ITS | Encounter Summary ---
Author Organization [facility] Address [address] [place] [address] Care Team Providers Care Television Mechanic Name Role Phone Marika Hendrickson DO Primary Care Provider Encounter Details Date Type Department Care Team (Latest Contact Info) Description 03/13/1999 Outpatient Historical [facility] [address] [place] [address] Kong Luna DO [address] [place] [address] Backache, unspecified (Primary Dx); Nonallopathic lesion of thoracic region, not elsewhere classified; Symptomatic states associated with artificial menopause Social History Tobacco Use Types Packs/Day Years Used Date Smoking Tobacco: Never Assessed Comments Unknown Sex and Gender Information Value Date Recorded Sex Assigned at Not on file Legal Sex Female 6:00 AM SUPERVISOR INTELLIGENCE ANALYST Gender Identity Not on file Sexual Orientation Not on file documented as of this encounter Plan of Treatment Not on file documented as of this encounter Visit Diagnoses Diagnosis Backache, unspecified- Primary Nonallopathic lesion of thoracic region, not elsewhere classified Symptomatic states associated with artificial menopause documented in this encounter Additional Health Concerns Infection Onset Date Last Indicated Resolved Time R/O C. diff 09/18/2020 09/18/2020 09/19/2020 2:51 PM CDT documented as of this encounter Care Teams Television Mechanic Relationship Specialty Start Date End Date Marika Hendrickson DO [address] [place] [address] PCP - General Family Practice 06/13/17 documented as of this encounter
--- OUTSIDE RECORDS SUMMARY | 2024-11-02 12:43 | XMS_ITS | Encounter Summary ---
Author Organization [facility] Address [address] [place] [address] Care Team Providers Care Plisse Machine Operator Helper Name Role Phone Marika Hendrickson DO Primary Care Provider [phone]- [phone] Encounter Details Date Type Department Care Team (Late st Contact Info) Description 10/29/1998 Outpatient Historical [facility] Social History Tobacco Use Types Packs/Day Years Used Date Smoking Tobacco: Never Assessed Comments Unknown Sex and Gender Information Value Date Recorded Sex Assigned at Not on file Legal Sex Female 6:00 AM DIRECTOR OF QUALITY CONTROL Gender Identity Not on file Sexual Orientation Not on file documented as of this encounter Plan of Treatment Not on file documented as of this encounter Visit Diagnoses Not on filedocumented in this encounter Additional Health Concerns Infection Onset Date Last Indicated Resolved Time R/O C. diff 09/18/2020 09/18/2020 09/19/2020 2:51 PM CDT documented as of this encounter Care Teams Plisse Machine Operator Helper Relationship Specialty Start Date End Date Marika Hendrickson DO [address] [place] [address] PCP - General Family Practice 06/13/17 documented as of this encounter
--- OUTSIDE RECORDS SUMMARY | 2024-11-02 12:43 | XMS_ITS | Encounter Summary ---
Author Organization [facility] Address [address] [place] [address] Care Team Providers Care Hospital Receptionist Name Role Phone Marika Hendrickson DO Primary Care Provider Encounter Details Date Type Department Care Team (Latest Contact Info) Description 05/29/1999 Outpatient Historical [facility] [address] [place] [address] Kong Luna DO [address] [place] [address] Acute sinusitis, unspecified (Primary Dx); Other malaise and fatigue; Nonallopathic lesion of cervical region, not elsewhere classified; Nonallopathic lesion of thoracic region, not elsewhere classified Social History Tobacco Use Types Packs/Day Years Used Date Smoking Tobacco: Never Assessed Comments Unknown Sex and Gender Information Value Date Recorded Sex Assigned at Not on file Legal Sex Female 6:00 AM AUTO TRAVEL COUNSELOR Gender Identity Not on file Sexual Orientation Not on file documented as of this encounter Plan of Treatment Not on file documented as of this encounter Visit Diagnoses Diagnosis Acute sinusitis, unspecified- Primary Other malaise and fatigue Nonallopathic lesion of cervical region, not elsewhere classified Nonallopathic lesion of thoracic region, not elsewhere classified documented in this encounter Additional Health Concerns Infection Onset Date Last Indicated Resolved Time R/O C. diff 09/18/2020 09/18/2020 09/19/2020 2:51 PM CDT documented as of this encounter Care Teams Hospital Receptionist Relationship Specialty Start Date End Date Marika Hendrickson DO [address] [place] [address] PCP - General Family Practice 06/13/17 documented as of this encounter
--- OUTSIDE RECORDS SUMMARY | 2024-11-02 12:43 | XMS_ITS | Encounter Summary ---
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) Social History Tobacco Use Types Packs/Day Years Used Date Smoking Tobacco: Never Assessed Comments Unknown Sex and Gender Information Value Date Recorded Sex Assigned at Not on file Legal Sex Female 6:00 AM FORGING PRESS OPERATOR Gender Identity Not on file Sexual Orientation Not on file documented as of this encounter Plan of Treatment Not on file documented as of this encounter Visit Diagnoses Diagnosis 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 diff 09/18/2020 09/18/2020 09/19/2020 2:51 PM CDT documented as of this encounter Care Teams Construction Field Engineer Relationship Specialty Start Date End Date Marika Hendrickson DO [address] [facility] [place] [address] PCP - General Family Practice 06/13/17 documented as of this encounter
--- OUTSIDE RECORDS SUMMARY | 2024-11-02 12:43 | XMS_ITS | Encounter Summary ---
Author Organization [facility] Address [address] [place] [address] Care Team Providers Care Marklogic Developer Name Role Phone Marika Hendrickson DO Primary Care Provider Encounter Details Date Type Department Care Team (Latest Contact Info) Description 10/03/1998 Outpatient Historical [facility] [address] [place] [address] Kong Luna DO [address] [place] [address] Acute sinusitis, unspecified (Primary Dx); Backache, unspecified; Nonallopathic lesion of thoracic region, not elsewhere classified; Postconcussion syndrome Social History Tobacco Use Types Packs/Day Years Used Date Smoking Tobacco: Never Assessed Comments Unknown Sex and Gender Information Value Date Recorded Sex Assigned at Not on file Legal Sex Female 6:00 AM BUDGET CLERK Gender Identity Not on file Sexual Orientation Not on file documented as of this encounter Plan of Treatment Not on file documented as of this encounter Visit Diagnoses Diagnosis Acute sinusitis, unspecified- Primary Backache, unspecified Nonallopathic lesion of thoracic region, not elsewhere classified Postconcussion syndrome documented in this encounter Additional Health Concerns Infection Onset Date Last Indicated Resolved Time R/O C. diff 09/18/2020 09/18/2020 09/19/2020 2:51 PM CDT documented as of this encounter Care Teams Marklogic Developer Relationship Specialty Start Date End Date Marika Hendrickson DO [address] [place] [address] PCP - General Family Practice 06/13/17 documented as of this encounter
--- OUTSIDE RECORDS SUMMARY | 2024-11-02 12:43 | XMS_ITS | Encounter Summary ---
Author Organization [facility] Address [address] [place] [address] Care Team Providers Care Chief Executive Name Role Phone Marika Hendrickson DO Primary Care Provider [phone] Encounter Details Date Type Department Care Team (Latest Contact Info) Description 06/26/2003 Outpatient [facility] Medicine [address] [place] [address] Gold Gaxiola DO NO ADDRESS ON FILE ALLERGY, UNSPECIFIED (Primary Dx); WHEEZING Social History Tobacco Use Types Packs/Day Years Used Date Smoking Tobacco: Never Assessed Comments Unknown Sex and Gender Information Value Date Recorded Sex Assigned at Not on file Legal Sex Female 6:00 AM KILN SETTER Gender Identity Not on file Sexual Orientation Not on file documented as of this encounter Plan of Treatment Not on file documented as of this encounter Visit Diagnoses Diagnosis Allergy, unspecified not elsewhere classified- Primary Wheezing documented in this encounter Additional Health Concerns Infection Onset Date Last Indicated Resolved Time R/O C. diff 09/18/2020 09/18/2020 09/19/2020 2:51 PM CDT documented as of this encounter Care Teams Chief Executive Relationship Specialty Start Date End Date Marika Hendrickson DO [address] [facility] [place] [address] PCP - General Family Practice 06/13/17 documented as of this encounter
--- OUTSIDE RECORDS SUMMARY | 2024-11-02 12:43 | XMS_ITS | Encounter Summary ---
Author Organization [facility] Address [address] [place] [address] Care Team Providers Care Hazardous Substances Engineer Name Role Phone Marika Hendirckson DO Primary Care Provider [phone] Encounter Details Date Type Department Care Team (Latest Contact Info) Description 04/02/2003 Outpatient Historical [facility] Medicine- [place] [address] [place] [address] Gold Gaxiola DO NO ADDRESS ON FILE TOXIC EFFECT GAS/VAPOR NOS (Primary Dx) Social History Tobacco Use Types Packs/Day Years Used Date Smoking Tobacco: Never Assessed Comments Unknown Sex and Gender Information Value Date Recorded Sex Assigned at Not on file Legal Sex Female 6:00 AM COFFEE WEIGHER Gender Identity Not on file Sexual Orientation Not on file documented as of this encounter Plan of Treatment Not on file documented as of this encounter Visit Diagnoses Diagnosis Toxic effect of unspecified gas, fume, or vapor(987.9)- Primary Toxic effect of unspecified gas, fume, or vapor documented in this encounter Additional Health Concerns Infection Onset Date Last Indicated Resolved Time R/O C. diff 09/18/2020 09/18/2020 09/19/2020 2:51 PM CDT documented as of this encounter Care Teams Hazardous Substances Engineer Relationship Specialty Start Date End Date Marika Hendrickson DO [address] [place] [address] PCP - General Family Practice 06/13/17 documented as of this encounter
--- OUTSIDE RECORDS SUMMARY | 2024-11-02 12:43 | XMS_ITS | Encounter Summary ---
Author Organization [facility] Address [address] [place] [address] Care Team Providers Care Soil Conservation Aide Name Role Phone Marika Hendrickson DO Primary Care Provider [phone] Encounter Details Date Type Department Care Team (Latest Contact Info) Description 07/03/2003 Outpatient [facility] Medicine [place] 104 [facility] [address] [place] [address] Loreta Elliott MD NO ADDRESS ON FILE WHEEZING (Primary Dx); ASTHMA UNSPECIFIED; MEMORY LOSS Social History Tobacco Use Types Packs/Day Years Used Date Smoking Tobacco: Never Assessed Comments Unknown Sex and Gender Information Value Date Recorded Sex Assigned at Not on file Legal Sex Female 6:00 AM GEOSCIENCE PROFESSOR Gender Identity Not on file Sexual Orientation Not on file documented as of this encounter Plan of Treatment Not on file documented as of this encounter Visit Diagnoses Diagnosis Wheezing- Primary Unspecified asthma(493.90) Unspecified asthma Memory loss documented in this encounter Additional Health Concerns Infection Onset Date Last Indicated Resolved Time R/O C. diff 09/18/2020 09/18/2020 09/19/2020 2:51 PM CDT documented as of this encounter Care Teams Soil Conservation Aide Relationship Specialty Start Date End Date Marika Hendrickson DO [address] [place] [address] PCP - General Family Practice 06/13/17 documented as of this encounter
--- OUTSIDE RECORDS SUMMARY | 2024-11-02 12:43 | XMS_ITS | Encounter Summary ---
Author Organization [facility] Address [address] [place] [address] Care Team Providers Care Special Education Math Teacher Name Role Phone Marika Hendrickson DO Primary Care Provider [phone] Encounter Details Date Type Department Care Team (Latest Contact Info) Description 08/22/1998 Outpatient [facility] [address] [phone] Gold Gaxiola DO NO ADDRESS ON FILE Constipation (Primary Dx); Unspecified otitis media; Nonsuppurative otitis media, not specified as acute or chronic Social History Tobacco Use Types Packs/Day Years Used Date Smoking Tobacco: Never Assessed Comments Unknown Sex and Gender Information Value Date Recorded Sex Assigned at Not on file Legal Sex Female 6:00 AM VISUAL TRAINING AIDE Gender Identity Not on file Sexual Orientation Not on file documented as of this encounter Plan of Treatment Not on file documented as of this encounter Visit Diagnoses Diagnosis Constipation- Primary Unspecified otitis media Nonsuppurative otitis media, not specified as acute or chronic documented in this encounter Additional Health Concerns Infection Onset Date Last Indicated Resolved Time R/O C. diff 09/18/2020 09/18/2020 09/19/2020 2:51 PM CDT documented as of this encounter Care Teams Special Education Math Teacher Relationship Specialty Start Date End Date Marika Hendrickson DO [address] [place] [address] PCP - General Family Practice 06/13/17 documented as of this encounter
--- OUTSIDE RECORDS SUMMARY | 2024-11-02 12:43 | XMS_ITS | Encounter Summary ---
Author Organization [facility] Address [address] [place] [address] Care Team Providers Care Account Development Specialist Name Role Phone Marika Hendrickson DO Primary Care Provider Encounter Details Date Type Department Care Team (Latest Contact Info) Description 11/06/1998 Outpatient [facility] Physical Med and Rehab- [place] [address] [place] [address] Ruby Proctor MD [address] [facility] [place] Intracranial injury of other and unspecified nature, without mention of open intracranial wound, unspecified state of consciousness (Primary Dx); Myalgia and myositis, unspecified Social History Tobacco Use Types Packs/Day Years Used Date Smoking Tobacco: Never Assessed Comments Unknown Sex and Gender Information Value Date Recorded Sex Assigned at Not on file Legal Sex Female 6:00 AM MANAGER OF PHOTOGRAPHY Gender Identity Not on file Sexual Orientation Not on file documented as of this encounter Plan of Treatment Not on file documented as of this encounter Visit Diagnoses Diagnosis Intracranial injury of other and unspecified nature, without mention of open intracranial wound, unspecified state of consciousness- Primary Myalgia and myositis, unspecified Mylagia and myositis, unspecified documented in this encounter Additional Health Concerns Infection Onset Date Last Indicated Resolved Time R/O C. diff 09/18/2020 09/18/2020 09/19/2020 2:51 PM CDT documented as of this encounter Care Teams Account Development Specialist Relationship Specialty Start Date End Date Marika Hendrickson DO [address] [place] [address] PCP - General Family Practice 06/13/17 documented as of this encounter
--- OUTSIDE RECORDS SUMMARY | 2024-11-02 12:43 | XMS_ITS | Encounter Summary ---
Author Organization [facility] Address [address] [place] [address] Care Team Providers Care Seal Delivery Vehicle Officer Name Role Phone Marika Hendrickson DO Primary Care Provider Encounter Details Date Type Department Care Team (Latest Contact Info) Description 11/04/1998 Outpatient [facility] Physical Med and Rehab- [place] [address] [place] [address] Ruby Proctor MD 1235 [facility] Intracranial injury of other and unspecified nature, without mention of open intracranial wound, unspecified state of consciousness (Primary Dx); Myalgia and myositis, unspecified Social History Tobacco Use Types Packs/Day Years Used Date Smoking Tobacco: Never Assessed Comments Unknown Sex and Gender Information Value Date Recorded Sex Assigned at Not on file Legal Sex Female 6:00 AM PLASTERER ROUGH Gender Identity Not on file Sexual Orientation [...] documented as of this encounter Care Teams Seal Delivery Vehicle Officer Relationship Specialty Start Date End Date Marika Hendrickson DO [address] [place] [address] PCP - General Family Practice 06/13/17 documented as of this encounter
--- OUTSIDE RECORDS SUMMARY | 2024-11-02 12:43 | XMS_ITS | Encounter Summary ---
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
--- OUTSIDE RECORDS SUMMARY | 2024-11-02 12:43 | XMS_ITS | Encounter Summary ---
Author Organization [facility] Address [address] [place] [address] Care Team Providers Care Stock Buyer Name Role Phone Marika Hendrickson DO Primary Care Provider Encounter Details Date Type Department Care Team (Latest Contact Info) Description 12/05/1998 Outpatient Historical [facility] [address] [place] [address] Kong Luna DO [address] [place] [address] Backache, unspecified (Primary Dx); Tension headache; Cervicalgia; Other ear problems Social History Tobacco Use Types Packs/Day Years Used Date Smoking Tobacco: Never Assessed Comments Unknown Sex and Gender Information Value Date Recorded Sex Assigned at Not on file Legal Sex Female 6:00 AM TOLL SERVICE 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 diff 09/18/2020 09/18/2020 09/19/2020 2:51 PM CDT documented as of this encounter Care Teams Stock Buyer Relationship Specialty Start Date End Date Marika Hendrickson DO [address] [place] [address] PCP - General Family Practice 06/13/17 documented as of this encounter
--- OUTSIDE RECORDS SUMMARY | 2024-11-02 12:43 | XMS_ITS | Encounter Summary ---
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 Social History Tobacco Use Types Packs/Day Years Used Date Smoking Tobacco: Never Assessed Comments Unknown Sex and Gender Information Value Date Recorded Sex Assigned at Not on file Legal Sex Female 6:00 AM SILK 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 diff 09/18/2020 09/18/2020 09/19/2020 2:51 PM CDT documented as of this encounter Care Teams High School Biology Teacher Relationship Specialty Start Date End Date Marika Hendrickson DO [address] [place] [address] PCP - General Family Practice 06/13/17 documented as of this encounter
--- OUTSIDE RECORDS SUMMARY | 2024-11-02 12:43 | XMS_ITS | Encounter Summary ---
Author Organization [facility] Address [address] [place] [address] Care Team Providers Care Room Worker Name Role Phone Marika Hendrickson DO Primary Care Provider Encounter Details Date Type Department Care Team (Latest Contact Info) Description 02/13/1999 Outpatient Historical [facility] [address] [place] [address] Kong Luna DO [address] [place] [address] Depressive disorder, not elsewhere classified (Primary Dx); Need vaccination-viral disease; Obesity, unspecified; Cervicalgia Social History Tobacco Use Types Packs/Day Years Used Date Smoking Tobacco: Never Assessed Comments Unknown Sex and Gender Information Value Date Recorded Sex Assigned at Not on file Legal Sex Female 6:00 AM PE MANAGER Gender Identity Not on file Sexual Orientation Not on file documented as of this encounter Plan of Treatment Not on file documented as of this encounter Visit Diagnoses Diagnosis Depressive disorder, not elsewhere classified- Primary Need vaccination-viral disease Need for prophylactic vaccination and inoculation against other viral diseases Obesity, unspecified Cervicalgia documented in this encounter Additional Health Concerns Infection Onset Date Last Indicated Resolved Time R/O C. diff 09/18/2020 09/18/2020 09/19/2020 2:51 PM CDT documented as of this encounter Care Teams Room Worker Relationship Specialty Start Date End Date Marika Hendrickson DO [address] [place] [address] PCP - General Family Practice 06/13/17 documented as of this encounter
--- OUTSIDE RECORDS SUMMARY | 2024-11-02 12:43 | XMS_ITS | Encounter Summary ---
Author Organization [facility] Address [address] [place] [address] Care Team Providers Care Cloth Packer Name Role Phone Marika Hendrickson DO Primary Care Provider Encounter Details Date Type Department Care Team (Latest Contact Info) Description 07/28/1999 Outpatient Historical [facility] Rheumatology- [facility] Yulia [address] [place] [phone] Leonides Zamora MD NO ADDRESS ON FILE Rheumatism, unspecified and fibrositis (Primary Dx) Social History Tobacco Use Types Packs/Day Years Used Date Smoking Tobacco: Never Assessed Comments Unknown Sex and Gender Information Value Date Recorded Sex Assigned at Not on file Legal Sex Female 6:00 AM DENTURE WAXER Gender Identity Not on file Sexual Orientation Not on file documented as of this encounter Plan of Treatment Not on file documented as of this encounter Visit Diagnoses Diagnosis Rheumatism, unspecified and fibrositis- Primary documented in this encounter Additional Health Concerns Infection Onset Date Last Indicated Resolved Time R/O C. diff 09/18/2020 09/18/2020 09/19/2020 2:51 PM CDT documented as of this encounter Care Teams Cloth Packer Relationship Specialty Start Date End Date Marika Hendrickson DO [address] [place] [address] PCP - General Family Practice 06/13/17 documented as of this encounter
--- OUTSIDE RECORDS SUMMARY | 2024-11-02 12:43 | XMS_ITS | Encounter Summary ---
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
--- OUTSIDE RECORDS SUMMARY | 2024-11-02 12:43 | XMS_ITS | Encounter Summary ---
Author Organization [facility] Address [address] [place] [address] Care Team Providers Care Streetcar Repairer Helper Name Role Phone Marika Hendrickson DO Primary Care Provider [phone] Encounter Details Date Type Department Care Team (Latest Contact Info) Description 10/23/1998 Outpatient [facility] Physical Med and Rehab- [place] [address] [place] [address] Ruby Proctor MD 1235 [facility] Intracranial injury of other and unspecified nature, without mention of open intracranial wound, unspecified state of consciousness (Primary Dx); Myalgia and myositis, unspecified Social History Tobacco Use Types Packs/Day Years Used Date Smoking Tobacco: Never Assessed Comments Unknown Sex and Gender Information Value Date Recorded Sex Assigned at Not on file Legal Sex Female 6:00 AM LICENSING DIRECTOR Gender Identity Not on file Sexual [...] documented as of this encounter Care Teams Streetcar Repairer Helper Relationship Specialty Start Date End Date Marika Hendrickson DO [address] [place] [address] PCP - General Family Practice 06/13/17 documented as of this encounter
--- OUTSIDE RECORDS SUMMARY | 2024-11-02 12:43 | XMS_ITS | Encounter Summary ---
Author Organization [facility] Address [address] [place] [address] Care Team Providers Care Cloth Examiner Hand Name Role Phone Marika Hendrickson DO Primary Care Provider Encounter Details Date Type Department Care Team (Latest Contact Info) Description 04/24/1999 Outpatient [facility] [address] [place] [address] Kong Luna DO [address] [place] [address] Influenza with other manifestations (Primary Dx); Backache, unspecified Social History Tobacco Use Types Packs/Day Years Used Date Smoking Tobacco: Never Assessed Comments Unknown Sex and Gender Information Value Date Recorded Sex Assigned at Not on file Legal Sex Female 6:00 AM ICE CREAM MIXER Gender Identity Not on file Sexual Orientation Not on file documented as of this encounter Plan of Treatment Not on file documented as of this encounter Visit Diagnoses Diagnosis Influenza with other manifestations- Primary Backache, unspecified documented in this encounter Additional Health Concerns Infection Onset Date Last Indicated Resolved Time R/O C. diff 09/18/2020 09/18/2020 09/19/2020 2:51 PM CDT documented as of this encounter Care Teams Cloth Examiner Hand Relationship Specialty Start Date End Date Marika Hendrickson DO [address] [place] [address] PCP - General Family Practice 06/13/17 documented as of this encounter
--- OUTSIDE RECORDS SUMMARY | 2024-11-02 12:43 | XMS_ITS | Encounter Summary ---
Author Organization [facility] Address [address] [place] [address] Care Team Providers Care Oil Rig Driller Name Role Phone Marika Hendrickson DO Primary Care Provider [phone] Encounter Details Date Type Department Care Team (Latest Contact Info) Description 10/30/1998 Outpatient [facility] Physical Med and Rehab- [place] [address] [place] [address] Ruby Proctor MD 1235 [facility] Myalgia and myositis, unspecified (Primary Dx); Lumbago; Intracranial injury of other and unspecified nature, without mention of open intracranial wound, unspecified state of consciousness Social History Tobacco Use Types Packs/Day Years Used Date Smoking Tobacco: Never Assessed Comments Unknown Sex and Gender Information Value Date Recorded Sex Assigned at Not on file Legal Sex Female 6:00 AM MANAGER CARD Gender Identity Not on file Sexual Orientation [...] documented as of this encounter Care Teams Oil Rig Driller Relationship Specialty Start Date End Date Marika Hendrickson DO [address] [place] [address] PCP - General Family Practice 06/13/17 documented as of this encounter
--- OUTSIDE RECORDS SUMMARY | 2024-11-02 12:43 | XMS_ITS | Encounter Summary ---
Author Organization [facility] Address [address] [place] [address] Care Team Providers Care Biology Faculty Member Name Role Phone Marika Hendrickson DO Primary Care Provider Encounter Details Date Type Department Care Team (Latest Contact Info) Description 06/22/1999 Outpatient [facility] [address] [place] [address] Kong Luna DO [address] [place] [address] Other specified arthropathy, site unspecified (Primary Dx) Social History Tobacco Use Types Packs/Day Years Used Date Smoking Tobacco: Never Assessed Comments Unknown Sex and Gender Information Value Date Recorded Sex Assigned at Not on file Legal Sex Female 6:00 AM ASSISTANT MEDIA PLANNER Gender Identity Not on file Sexual Orientation Not on file documented as of this encounter Plan of Treatment Not on file documented as of this encounter Visit Diagnoses Diagnosis Other specified arthropathy, site unspecified- Primary documented in this encounter Additional Health Concerns Infection Onset Date Last Indicated Resolved Time R/O C. diff 09/18/2020 09/18/2020 09/19/2020 2:51 PM CDT documented as of this encounter Care Teams Biology Faculty Member Relationship Specialty Start Date End Date Marika Hendrickson DO [address] [place] [address] PCP - General Family Practice 06/13/17 documented as of this encounter
--- OUTSIDE RECORDS SUMMARY | 2024-11-02 12:43 | XMS_ITS | Encounter Summary ---
Author Organization [facility] Address [address] [place] [address] Care Team Providers Care Cake Icer And Packer Name Role Phone Marika Hendrickson DO Primary Care Provider [phone] Encounter Details Date Type Department Care Team (Latest Contact Info) Description 12/26/1998 Outpatient Historical [facility] [address] [place] [address] Kong Luna DO [address] [place] [address] Depressive disorder, not elsewhere classified (Primary Dx); Anxiety state, unspecified; Nonallopathic lesion of thoracic region, not elsewhere classified; Nonallopathic lesion of cervical region, not elsewhere classified Social History Tobacco Use Types Packs/Day Years Used Date Smoking Tobacco: Never Assessed Comments Unknown Sex and Gender Information Value Date Recorded Sex Assigned at Not on file Legal Sex Female 6:00 AM WASTEWATER 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 diff 09/18/2020 09/18/2020 09/19/2020 2:51 PM CDT documented as of this encounter Care Teams Cake Icer And Packer Relationship Specialty Start Date End Date Marika Hendrickson DO [address] [place] [address] PCP - General Family Practice 06/13/17 documented as of this encounter
--- OUTSIDE RECORDS SUMMARY | 2024-11-02 12:43 | XMS_ITS | Encounter Summary ---
Author Organization [facility] Address [address] [place] [address] Care Team Providers Care Cook Apprentice Name Role Phone Marika Hendrickson DO Primary Care Provider [phone] Encounter Details Date Type Department Care Team (Latest Contact Info) Description 01/05/1999 Outpatient [facility] Physical Med and Rehab- [place] [address] [place] [address] Ruby Proctor MD 1235 [facility] Intracranial injury of other and unspecified nature, without mention of open intracranial wound, unspecified state of consciousness (Primary Dx); Depressive disorder, not elsewhere classified; Myalgia and myositis, unspecified Social History Tobacco Use Types Packs/Day Years Used Date Smoking Tobacco: Never Assessed Comments Unknown Sex and Gender Information Value Date Recorded Sex Assigned at Not on file Legal Sex Female 6:00 AM SUPERVISOR ALUM PLANT Gender Identity Not on file Sexual Orientation Not on file documented as of this encounter Plan of Treatment Not on file documented as of this encounter Visit Diagnoses Diagnosis Intracranial injury of other and unspecified nature, without mention of open intracranial wound, unspecified state of consciousness- Primary Depressive disorder, not elsewhere classified Myalgia and myositis, unspecified Mylagia and myositis, unspecified documented in this encounter Additional Health Concerns Infection Onset Date Last Indicated Resolved Time R/O C. diff 09/18/2020 09/18/202009/19/2020 2:51 PM CDT documented as of this encounter Care Teams Cook Apprentice Relationship Specialty Start Date End Date Marika Hendrickson DO [address] [place] [address] PCP - General Family Practice 06/13/17 documented as of this encounter
--- OUTSIDE RECORDS SUMMARY | 2024-11-02 12:43 | XMS_ITS | Encounter Summary ---
Author Organization [facility] Address [address] [place] [address] Care Team Providers Care Care Management Coordinator Name Role Phone Aliya Hendricksonoraalejandra Tinsley DO Primary Care Provider [phone] Encounter Details Date Type Department Care Team (Latest Contact Info) Description 10/20/1998 Outpatient Historical [facility] [address] [place] [address] Kong Luna DO [address] [place] [address] Headache(784.0) (Primary Dx); Nonallopathic lesion of thoracic region, not elsewhere classified; Nonallopathic lesion of cervical region, not elsewhere classified Social History Tobacco Use Types Packs/Day Years Used Date Smoking Tobacco: Never Assessed Comments Unknown Sex and Gender Information Value Date Recorded Sex Assigned at Not on file Legal Sex Female 6:00 AM DENTIST ATTENDANT Gender Identity Not on file Sexual Orientation Not on file documented as of this encounter Plan of Treatment Not on file documented as of this encounter Visit Diagnoses Diagnosis Headache(784.0)- Primary Headache Nonallopathic lesion of thoracic region, not elsewhere classified Nonallopathic lesion of cervical region, not elsewhere classified documented in this encounter Additional Health Concerns Infection Onset Date Last Indicated Resolved Time R/O C. diff 09/18/2020 09/18/202009/19/2020 2:51 PM CDT documented as of this encounter Care Teams Care Management Coordinator Relationship Specialty Start Date End Date Marika Hendrickson DO [address] [place] [address] PCP - General Family Practice 06/13/17 documented as of this encounter
--- OUTSIDE RECORDS SUMMARY | 2024-11-02 12:43 | XMS_ITS | Encounter Summary ---
Author Organization [facility] Address [address] [place] [address] Care Team Providers Care Board Liner Operator Name Role Phone Marika Hendrickson DO Primary Care Provider Encounter Details Date Type Department Care Team (Latest Contact Info) Description 01/26/1999 Outpatient Historical [facility] [address] [place] [address] Kong Luna DO [address] [place] [address] Depressive disorder, not elsewhere classified (Primary Dx); Backache, unspecified; Headache(784.0) Social History Tobacco Use Types Packs/Day Years Used Date Smoking Tobacco: Never Assessed Comments Unknown Sex and Gender Information Value Date Recorded Sex Assigned at Not on file Legal Sex Female 6:00 AM GLASS 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 diff 09/18/2020 09/18/2020 09/19/2020 2:51 PM CDT documented as of this encounter Care Teams Board Liner Operator Relationship Specialty Start Date End Date Marika Hendrickson DO [address] [place] [address] PCP - General Family Practice 06/13/17 documented as of this encounter
--- OUTSIDE RECORDS SUMMARY | 2024-11-02 12:43 | XMS_ITS | Encounter Summary ---
Author Organization [facility] Address [address] [place] [address] Care Team Providers Care Supervisor Pyrotechnic Loading Name Role Phone Marika Hendrickson DO Primary Care Provider [phone] Encounter Details Date Type Department Care Team (Latest Contact Info) Description 12/31/1999 Outpatient [facility] Medicine [address] [place] [address] Kesha Pulido NO ADDRESS ON FILE Acute sinusitis, unspecified (Primary Dx); General symptoms NEC Social History Tobacco Use Types Packs/Day Years Used Date Smoking Tobacco: Never Assessed Comments Unknown Sex and Gender Information Value Date Recorded Sex Assigned at Not on file Legal Sex Female 6:00 AM PRESIDENTIAL SUPPORT SPECIALIST Gender Identity Not on file Sexual Orientation Not on file documented as of this encounter Plan of Treatment Not on file documented as of this encounter Visit Diagnoses Diagnosis Acute sinusitis, unspecified- Primary General symptoms NEC Other general symptoms documented in this encounter Additional Health Concerns Infection Onset Date Last Indicated Resolved Time R/O C. diff 09/18/2020 09/18/2020 09/19/2020 2:51 PM CDT documented as of this encounter Care Teams Supervisor Pyrotechnic Loading Relationship Specialty Start Date End Date Marika Hendrickson DO [address] [place] [address] PCP - General Family Practice 06/13/17 documented as of this encounter
--- OUTSIDE RECORDS SUMMARY | 2024-11-02 12:43 | XMS_ITS | Encounter Summary ---
Author Organization [facility] Address [address] [place] [address] Care Team Providers Care Oil Heat Technician Name Role Phone Marika Hendrickson DO Primary Care Provider Encounter Details Date Type Department Care Team (Latest Contact Info) Description 11/05/1998 Outpatient Historical [facility] Enrique Lazcano MD NO ADDRESS ON FILE Subjective visual disturbance, unspecified (Primary Dx); Unspecified disorder of refraction and accommodation Social History Tobacco Use Types Packs/Day Years Used Date Smoking Tobacco: Never Assessed Comments Unknown Sex and Gender Information Value Date Recorded Sex Assigned at Not on file Legal 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 diff 09/18/2020 09/18/2020 09/19/2020 2:51 PM CDT documented as of this encounter Care Teams Oil Heat Technician Relationship Specialty Start Date End Date Marika Hendrickson DO [address] [place] [address] PCP - General Family Practice 06/13/17 documented as of this encounter
--- OUTSIDE RECORDS SUMMARY | 2024-11-02 12:43 | XMS_ITS | Encounter Summary ---
Author Organization [facility] Address [address] [place] [address] Care Team Providers Care Child Welfare Specialist Name Role Phone Marika Hendrickson DO Primary Care Provider Encounter Details Date Type Department Care Team (Latest Contact Info) Description 05/15/1999 Outpatient [facility] [address] [place] [address] Kong Luna DO [address] [place] [address] Female stress incontinence (Primary Dx); Nonallopathic lesion of cervical region, not elsewhere classified; Spasm of muscle Social History Tobacco Use Types Packs/Day Years Used Date Smoking Tobacco: Never Assessed Comments Unknown Sex and Gender Information Value Date Recorded Sex Assigned at Not on file Legal Sex Female 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 diff 09/18/2020 09/18/2020 09/19/2020 2:51 PM CDT documented as of this encounter Care Teams Child Welfare Specialist Relationship Specialty Start Date End Date Marika Hendrickson DO [address] [place] [address] PCP - General Family Practice 06/13/17 documented as of this encounter
--- OUTSIDE RECORDS SUMMARY | 2024-11-02 12:43 | XMS_ITS | Encounter Summary ---
Author Organization [facility] Address [address] [place] [address] Care Team Providers Care Flue Tile Press Operator Name Role Phone Marika Hendrickson DO Primary Care Provider Encounter Details Date Type Department Care Team (Latest Contact Info) Description 09/16/1998 Outpatient [facility] Physical Med and Rehab- [place] [address] [place] [address] Ruby Proctor MD [address] [facility] Intracranial injury of other and unspecified nature, without mention of open intracranial wound, unspecified state of consciousness (Primary Dx); Myalgia and myositis, unspecified Social History Tobacco Use Types Packs/Day Years Used Date Smoking Tobacco: Never Assessed Comments Unknown Sex and Gender Information Value Date Recorded Sex Assigned at Not on file Legal Sex Female 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
--- OUTSIDE RECORDS SUMMARY | 2024-11-02 12:43 | XMS_ITS | Encounter Summary ---
Author Organization [facility] Address [address] [place] [address] Care Team Providers Care Disease Intervention Specialist Name Role Phone Marika Hendrickson DO Primary Care Provider Encounter Details Date Type Department Care Team (Latest Contact Info) Description 09/05/1998 Outpatient Historical [facility] [address] [place] [address] Kong Luna DO [address] [place] [address] Backache, unspecified (Primary Dx); Cervicalgia; Pain in joint, lower leg Social History Tobacco Use Types Packs/Day Years Used Date Smoking Tobacco: Never Assessed Comments Unknown Sex and Gender Information Value Date Recorded Sex Assigned at Not on file Legal Sex Female 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 diff 09/18/2020 09/18/2020 09/19/2020 2:51 PM CDT documented as of this encounter Care Teams Disease Intervention Specialist Relationship Specialty Start Date End Date Marika Hendrickson DO [address] [place] [phone] PCP - General Family Practice 06/13/17 documented as of this encounter
--- OUTSIDE RECORDS SUMMARY | 2024-11-02 12:43 | XMS_ITS | Encounter Summary ---
Author Organization [facility] Address [address] [place] [address] Care Team Providers Care Analytical Chemistry Teacher Name Role Phone Marika Hendrickson DO Primary Care Provider Encounter Details Date Type Department Care Team (Latest Contact Info) Description 10/21/1998 Outpatient [facility] Physical Med and Rehab- [place] [address] [place] [address] Ruby Proctor MD 12[address] [facility] Intracranial injury of other and unspecified nature, without mention of open intracranial wound, unspecified state of consciousness (Primary Dx); Myalgia and myositis, unspecified Social History Tobacco Use Types Packs/Day Years Used Date Smoking Tobacco: Never Assessed Comments Unknown Sex and Gender Information Value Date Recorded Sex Assigned at Not on file Legal 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
--- OUTSIDE RECORDS SUMMARY | 2024-11-02 12:44 | XMS_ITS | Encounter Summary ---
Author Organization [facility] Address [address] [place] [address] Care Team Providers Care Mesh Worker Name Role Phone Marika Hendrickson DO Primary Care Provider [phone] Encounter Details Date Type Department Care Team (Late st Contact Info) Description 10/03/2008 Ancillary Orders [facility] Imaging External Read [address] [place] [address] Marquis Hodge MD [facility] [place] [phone] Screening Mammogram Social History Tobacco Use Types Packs/Day Years Used Date Smoking Tobacco: Every Day Cigarettes 1 35 Alcohol Use Standard Drinks/Week Comments Yes 0 (1 standard drink = 0.6 oz pur e alcohol) very rarely Comments No Sex and Gender Information Value Date Recorded Sex Assigned at Not on file Legal Sex Female 6:00 AM ATTRACTION WORKER Gender Identity Not on file Sexual Orientation Not on file documented as of this encounter Plan of Treatment Not on file documented as of this encounter Results * MAMMO SCREENING BILAT (10/03/2008 12:25 PM CDT) Anatomical Region Laterality Modality Breast Bilateral Mammography Narrative 10/04/2008 7:48 AM CDT Bilateral Mammogram Reason for Exam: Screening Comparison: Comparison is made with the prior exam(s) dated 11.28.03, 11.07.07. Findings: Bilateral CC and MLO views were obtained. This examination was reviewed with the aid of a computer-aided detection system(CAD). The breast tissue is dense. No significant new findings since the prior mammogram(s). Procedure Note Melanie Calvo MD - 10/04/2008 Bilateral Mammogram Reason for Exam: Screening Comparison: Comparison is made with the prior exam(s) dated 11.28.03,11.07.07. Findings: Bilateral CC and MLO views were obtained. This examination was reviewed with the aid of a computer-aided detectionsystem(CAD). The breast tissue is dense. No significant new findings since the prior mammogram(s). us Marquis Hodge MD MAMMO ORDERABLES Final Resu lt documented in this encounter Visit Diagnoses Diagnosis Screening mammogram Other screening mammogram documented in this encounter Additional Health Concerns Infection Onset Date Last Indicated Resolved Time R/O C. diff 09/18/2020 09/18/2020 09/19/2020 2:51 PM CDT documented as of this encounter Care Teams Mesh Worker Relationship Specialty Start Date End Date Marika Hendrickson DO [address] [place] [address] PCP - General Family Practice 06/13/17 documented as of this encounter
--- OUTSIDE RECORDS SUMMARY | 2024-11-02 12:44 | XMS_ITS | Encounter Summary ---
Author Organization [facility] Address [address] [place] [address] Care Team Providers Care Pit Boss Name Role Phone Marika Hendrickson DO Primary Care Provider [phone] Encounter Details Date Type Department Care Team (Latest Contact Info) Description 07/28/1998 Outpatient Historical [facility] [address] [place] [address] Kong Luna DO [address] [place] [address] Backache, unspecified (Primary Dx); Spasm of muscle; Cervicalgia; Essential and other specified forms of tremor Social History Tobacco Use Types Packs/Day Years Used Date Smoking Tobacco: Never Assessed Comments Unknown Sex and Gender Information Value Date Recorded Sex Assigned at Not on file Legal Sex Female 6:00 AM MEDICAL DIRECTOR Gender Identity Not on file Sexual Orientation Not on file documented as of this encounter Plan of Treatment Not on file documented as of this encounter Visit Diagnoses Diagnosis Backache, unspecified- Primary Spasm of muscle Cervicalgia Essential and other specified forms of tremor documented in this encounter Additional Health Concerns Infection Onset Date Last Indicated Resolved Time R/O C. diff 09/18/2020 09/18/2020 09/19/2020 2:51 PM CDT documented as of this encounter Care Teams Pit Boss Relationship Specialty Start Date End Date Emeka, Marika L, DO [address] [place] [address] PCP - General Family Practice 06/13/17 documented as of this encounter
--- OUTSIDE RECORDS SUMMARY | 2024-11-02 12:44 | XMS_ITS | Encounter Summary ---
Author Organization [facility] Address [address] [place] [address] Care Team Providers Care Mangle Roll Operator Name Role Phone Marika Hendrickson DO Primary Care Provider [phone] Encounter Details Date Type Department Care Team (Latest Contact Info) Description 11/26/1999 Outpatient [facility] Medicine [place] [address] [facility] [address] [place] [address] Kesha Pulido NO ADDRESS ON FILE Allergy, unspecified not elsewhere classified (Primary Dx); Pure hypercholesterolem; Unspecified symptom associated with female genital organs Social History Tobacco Use Types Packs/Day Years Used Date Smoking Tobacco: Never Assessed Comments Unknown Sex and Gender Information Value Date Recorded Sex Assigned at Not on file Legal 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 diff 09/18/2020 09/18/2020 09/19/2020 2:51 PM CDT documented as of this encounter Care Teams Mangle Roll Operator Relationship Specialty Start Date End Date Marika Hendrickson DO [address] [place] [address] PCP - General Family Practice 06/13/17 documented as of this encounter
--- OUTSIDE RECORDS SUMMARY | 2024-11-02 12:44 | XMS_ITS | Encounter Summary ---
Author Organization [facility] Address [address] [place] [address] Care Team Providers Care Equipment Tech Name Role Phone Marika Hendrickson DO Primary Care Provider Encounter Details Date Type Department Care Team (Latest Contact Info) Description 07/21/1998 Outpatient Historical [facility] [address] [place] [address] Kong Luna DO [address] [place] [address] Backache, unspecified (Primary Dx); Cervicalgia Social History Tobacco Use Types Packs/Day Years Used Date Smoking Tobacco: Never Assessed Comments Unknown Sex and Gender Information Value Date Recorded Sex Assigned at Not on file Legal Sex Female 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 diff 09/18/2020 09/18/2020 09/19/2020 2:51 PM CDT documented as of this encounter Care Teams Equipment Tech Relationship Specialty Start Date End Date Marika Hendrickson DO [address] [place] [address] PCP - General Family Practice 06/13/17 documented as of this encounter
--- OUTSIDE RECORDS SUMMARY | 2024-11-02 12:44 | XMS_ITS | Encounter Summary ---
Author Organization [facility] Address [address] [place] [address] Care Team Providers Care Avionics System Engineer Name Role Phone Marika Hendrickson DO Primary Care Provider Encounter Details Date Type Department Care Team (Latest Contact Info) Description 04/05/2008 Outpatient [facility] [address] [place] [address] [facility] [address] [place] [address] Sb Tobar Thoracic or Lumbosacral Neuritis or Radiculitis, Unspecified; Disorders of Sacrum; Esophageal Reflux; Unspecified Arthropathy, Site Unspecified; Irritable Bowel Syndrome; Depressive Disorder, not Elsewhere Classified; Headache; Unspecified Constipation Social History Tobacco Use Types Packs/Day Years Used Date Smoking Tobacco: Every Day Cigarettes 1 35 Alcohol Use Standard Drinks/Week Comments Yes 0 (1 standard drink = 0.6 oz pur e alcohol) very rarely Comments No Sex and Gender Information Value Date Recorded Sex Assigned at Not on file Legal Sex Female 6:00 AM TOWER ERECTOR HELPER Gender Identity Not on file Sexual Orientation Not on file documented as of this encounter Plan of Treatment Not on file documented as of this encounter Visit Diagnoses Diagnosis Thoracic or lumbosacral neuritis or radiculitis, unspecified Disorders of sacrum Esophageal reflux Arthropathy, unspecified, site unspecified Irritable bowel syndrome Depressive disorder, not elsewhere classified Headache(784.0) Headache Unspecified constipation documented in this encounter Additional Health Concerns Infection Onset Date Last Indicated Resolved Time R/O C. diff 09/18/2020 09/18/2020 09/19/2020 2:51 PM CDT documented as of this encounter Care Teams Avionics System Engineer Relationship Specialty Start Date End Date Marika Hendrickson DO [address] [place] [address] PCP - General Family Practice 06/13/17 documented as of this encounter
--- OUTSIDE RECORDS SUMMARY | 2024-11-02 12:44 | XMS_ITS | Encounter Summary ---
Author Organization [facility] Address [address] [place] [address] Care Team Providers Care Film Or Videotape Editor Name Role Phone Marika Hendrickson DO Primary Care Provider Encounter Details Date Type Department Care Team (Latest Contact Info) Description 08/07/1998 Outpatient [facility] Medicine [place] [address] [facility] [address] [place] [address] Kong Luna DO [address] [place] [phone] Backache, unspecified (Primary Dx); Cataplexy and narcolepsy; Skin sensation disturb Social History Tobacco Use Types Packs/Day Years Used Date Smoking Tobacco: Never Assessed Comments Unknown Sex and Gender Information Value Date Recorded Sex Assigned at Not on file Legal Sex Female 6: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 diff 09/18/2020 09/18/2020 09/19/2020 2:51 PM CDT documented as of this encounter Care Teams Film Or Videotape Editor Relationship Specialty Start Date End Date Marika Hendrickson DO [address] [place] [address] PCP - General Family Practice 06/13/17 documented as of this encounter
--- OUTSIDE RECORDS SUMMARY | 2024-11-02 12:44 | XMS_ITS | Encounter Summary ---
Author Organization [facility] Address [address] [place] [address] Care Team Providers Care Rn Anesthesiology Name Role Phone Marika Hendrickson DO Primary Care Provider Encounter Details Date Type Department Care Team (Latest Contact Info) Description 07/24/1998 Outpatient [facility] Medicine [place] 104 [facility] [address] [place] [address] Kong Luna DO [address] [place] [phone] Backache, unspecified (Primary Dx); Cervicalgia; Nonallopathic lesion of thoracic region, not elsewhere classified; Nonallopathic lesion of cervical region, not elsewhere classified Social History Tobacco Use Types Packs/Day Years Used Date Smoking Tobacco: Never Assessed Comments Unknown Sex and Gender Information Value Date Recorded Sex Assigned at Not on file Legal Sex Female 6:00 AM FLEET TECHNICIAN Gender Identity Not on file Sexual Orientation Not on file documented as of this encounter Plan of Treatment Not on file documented as of this encounter Visit Diagnoses Diagnosis Backache, unspecified- Primary Cervicalgia Nonallopathic lesion of thoracic region, not elsewhere classified Nonallopathic lesion of cervical region, not elsewhere classified documented in this encounter Additional Health Concerns Infection Onset Date Last Indicated Resolved Time R/O C. diff 09/18/2020 09/18/2020 09/19/2020 2:51 PM CDT documented as of this encounter Care Teams Rn Anesthesiology Relationship Specialty Start Date End Date Marika Hendrickson DO [address] [place] [address] PCP - General Family Practice 06/13/17 documented as of this encounter
--- OUTSIDE RECORDS SUMMARY | 2024-11-02 12:44 | XMS_ITS | Encounter Summary ---
Author Organization [facility] Address [address] [place] [address] Care Team Providers Care Software Developer Mid Level Name Role Phone Marika Hendrickson DO Primary Care Provider Encounter Details Date Type Department Care Team (Latest Contact Info) Description 07/09/1998 Outpatient Historical [facility] [address] [place] [address] Kong Luna DO [address] [place] [address] Cervicalgia (Primary Dx); Acute sinusitis, unspecified; Anxiety state, unspecified Social History Tobacco Use Types Packs/Day Years Used Date Smoking Tobacco: Never Assessed Comments Unknown Sex and Gender Information Value Date Recorded Sex Assigned at Not on file Legal Sex Female 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 diff 09/18/2020 09/18/2020 09/19/2020 2:51 PM CDT documented as of this encounter Care Teams Software Developer Mid Level Relationship Specialty Start Date End Date Marika Hendrickson DO [address] [place] [address] PCP - General Family Practice 06/13/17 documented as of this encounter
--- OUTSIDE RECORDS SUMMARY | 2024-11-02 12:44 | XMS_ITS | Encounter Summary ---
Author Organization [facility] Address [address] [place] [address] Care Team Providers Care Educational Aid Name Role Phone Marika Hendrickson DO Primary Care Provider Encounter Details Date Type Department Care Team (Latest Contact Info) Description 01/12/2000 Outpatient Historical [facility] Neurology [address], [address] [place] [address] Lionel Zaidi MD [address] [place] [address] Postconcussion syndrome (Primary Dx) Social History Tobacco Use Types Packs/Day Years Used Date Smoking Tobacco: Never Assessed Comments Unknown Sex and Gender Information Value Date Recorded Sex Assigned at Not on file Legal Sex Female 6:00 AM LEGAL SERVICES PROFESSIONAL Gender Identity Not on file Sexual Orientation Not on file documented as of this encounter Plan of Treatment Not on file documented as of this encounter Visit Diagnoses Diagnosis Postconcussion syndrome- Primary documented in this encounter Additional Health Concerns Infection Onset Date Last Indicated Resolved Time R/O C. diff 09/18/2020 09/18/2020 09/19/2020 2:51 PM CDT documented as of this encounter Care Teams Educational Aid Relationship Specialty Start Date End Date Marika Hendrickson DO [address] [place] [address] PCP - General Family Practice 06/13/17 documented as of this encounter
--- OUTSIDE RECORDS SUMMARY | 2024-11-02 12:44 | XMS_ITS | Encounter Summary ---
Author Organization [facility] Address [address] [place] [address] Care Team Providers Care Contact Centre Supervisor Name Role Phone Marika Hendrickson DO Primary Care Provider [phone]- [phone] Encounter Details Date Type Department Care Team (Latest Contact Info) Description 06/20/1998 Outpatient [facility] Medicine [address] [place] [address] Gold Gaxiola DO NO ADDRESS ON FILE Chest pain, unspecified (Primary Dx); Acute upper respiratory infections of unspecified site Social History Tobacco Use Types Packs/Day Years Used Date Smoking Tobacco: Never Assessed Comments Unknown Sex and Gender Information Value Date Recorded Sex Assigned at Not on file Legal Sex Female 6:00 AM AUTOMATION TECHNOLOGIST Gender Identity Not on file Sexual Orientation Not on file documented as of this encounter Plan of Treatment Not on file documented as of this encounter Visit Diagnoses Diagnosis Chest pain, unspecified- Primary Acute upper respiratory infections of unspecified site documented in this encounter Additional Health Concerns Infection Onset Date Last Indicated Resolved Time R/O C. diff 09/18/2020 09/18/2020 09/19/2020 2:51 PM CDT documented as of this encounter Care Teams Contact Centre Supervisor Relationship Specialty Start Date End Date Marika Hendrickson DO [address] [place] [address] PCP - General Family Practice 06/13/17 documented as of this encounter
--- OUTSIDE RECORDS SUMMARY | 2024-11-02 12:44 | XMS_ITS | Encounter Summary ---
Author Organization [facility] Address [address] [place] [address] Care Team Providers Care Poultry Cutter Name Role Phone Marika Hendrickson DO Primary Care Provider [phone] Encounter Details Date Type Department Care Team (Latest Contact Info) Description 08/20/1998 Outpatient Historical [facility] [address] [place] [address] Kong Luna DO [address] [place] [address] Backache, unspecified (Primary Dx); Cervicalgia; General symptoms NEC Social History Tobacco Use Types Packs/Day Years Used Date Smoking Tobacco: Never Assessed Comments Unknown Sex and Gender Information Value Date Recorded Sex Assigned at Not on file Legal Sex Female 6:00 AM DIRECTOR TELECOMMUNICATIONS Gender Identity Not on file Sexual Orientation Not on file documented as of this encounter Plan of Treatment Not on file documented as of this encounter Visit Diagnoses Diagnosis Backache, unspecified- Primary Cervicalgia General symptoms NEC Other general symptoms documented in this encounter Additional Health Concerns Infection Onset Date Last Indicated Resolved Time R/O C. diff 09/18/2020 09/18/2020 09/19/2020 2:51 PM CDT documented as of this encounter Care Teams Poultry Cutter Relationship Specialty Start Date End Date Marika Hendrickson DO [address] [place] [address] PCP - General Family Practice 06/13/17 documented as of this encounter
--- OUTSIDE RECORDS SUMMARY | 2024-11-02 12:44 | XMS_ITS | Encounter Summary ---
Author Organization [facility] Address [address] [place] [address] Care Team Providers Care Waterside Worker Name Role Phone Marika Hendrickson DO Primary Care Provider Encounter Details Date Type Department Care Team (Latest Contact Info) Description 08/04/1998 Outpatient Historical [facility] [address] [place] [address] Kong Luna DO [address] [place] [address] Backache, unspecified (Primary Dx); Spasm of muscle; Cervicalgia Social History Tobacco Use Types Packs/Day Years Used Date Smoking Tobacco: Never Assessed Comments Unknown Sex and Gender Information Value Date Recorded Sex Assigned at Not on file Legal Sex Female 6:00 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 diff 09/18/2020 09/18/2020 09/19/2020 2:51 PM CDT documented as of this encounter Care Teams Waterside Worker Relationship Specialty Start Date End Date Marika Hendrickson DO [address] [place] [address] PCP - General Family Practice 06/13/17 documented as of this encounter
--- OUTSIDE RECORDS SUMMARY | 2024-11-02 12:44 | XMS_ITS | Encounter Summary ---
Author Organization [facility] Address [address] [place] [address] Care Team Providers Care Service Desk Manager Name Role Phone Marika Hendrickson DO Primary Care Provider [phone]- [phone] Reason for Referral * Outpatient Services (Routine) - Closed Specialty Diagnoses / Procedures Referred By Contac t Referred To Contact Diagnoses Abnormal mammogram, unspecified Procedures MAMMO DIGITAL DIAG BILAT Marquis Hodge MD [address] [place] [address] Phone: tel: fax: [facility] Pre-Registration [place] CALL TO MAKE APPOINTMENT ONLY [address] [place] [address] Phone: tel: fax: Referral ID Status Reason Start Date Expiration Date V isits Requested Visits Authorized [id number] Closed [facility] TO SCHEDULE (SGF) 02/21/2012 02/20/2013 1 1 CTOR TRADE Encounter Details Date Type Department Care Team (Latest Contact Info) Description 02/21/2012 Ancillary Orders [facility] Pre-Registration [place] CALL TO MAKE APPOINTMENT ONLY [address] [place] [address] Marquis Hodge MD [address] [facility] [place] [address] Abnormal mammogram, unspecified Social History Tobacco Use Types Packs/Day Years Used Date Smoking Tobacco: Every Day Cigarettes 1 35 Alcohol Use Standard Drinks/Week Comments Yes 0 (1 standard drink = 0.6 oz pur e alcohol) very rarely Comments No Sex and Gender Information Value Date Recorded Sex Assigned at Not on file Legal Sex Female 6:00 AM DIRECTOR TRADE Gender Identity Not on file Sexual Orientation Not on file Occupation Industry Job Start Date Job End Date Not on file Not on file Not on file Not on file documented as of this encounter Plan of Treatment Not on file documented as of this encounter Results * MAMMO DIGITAL DIAG BILAT (04/28/2012 10:45 AM DIRECTOR TRADE) Anatomical Region Laterality Modality Breast Bilateral Mammography 04/28/2012 10:2 0 AM DIRECTOR TRADE Impressions 04/28/2012 12:25 PM DIRECTOR TRADE IMPRESSION: Satisfactory and stable second 6-month followup bilateral mammogram, as noted. Therefore, I would now recommend returning her to routine annual screening mammograms. Patient received a result/recommendation letter. HARDEEP/malcolm 1051 AM - uploaded from Power Scribe - Narrative 04/28/2012 12:25 PM DIRECTOR TRADE Bilateral Digital Diagnostic Mammogram: Repeat examination on this 46-year-old female is compared with previous 12/08/2010 and 09/17/2011. This is second 6-month followup bilaterally for bilateral subareolar calcifications and some asymmetrical nodular appearance medially on the right. Breast tissue is again of average density and asymmetrical. The area medially on the right is again noted and appears stable. Subareolar calcifications are again noted, and appear stable as well. This mammogram was also analyzed by the Computer Aided Detection System (CAD), [employer] ImageChecker, Version 8.3. Procedure Note Hugo Coppola MD - 04/28/2012 Bilateral Digital Diagnostic Mammogram: Repeat examination on this 46-year-old female is compared with previous 12/08/2010 and 09/17/2011. This is second 6-month followup bilaterally for bilateral subareolar calcifications and some asymmetrical nodular appearance medially on the right. Breast tissue is again of average density and asymmetrical. The area medially on the right is again noted and appears stable. Subareolar calcifications are again noted, and appear stable as well. This mammogram was also analyzed by the Computer Aided Detection System (CAD), [employer] ImageMTX Connectcker, Version 8.3. IMPRESSION IMPRESSION: Satisfactory and stable second 6-month followup bilateral mammogram, as noted. Therefore, I would now recommend returning her to routine annual screening mammograms. Patient received a result/recommendation letter. HARDEEP/malcolm 1051 AM - uploaded from [employer] - us Marquis Hodge MD MAMMO ORDERABLES Final Resu lt documented in this encounter Visit Diagnoses Diagnosis Abnormal mammogram, unspecified Abnormal mammogram, unspecified documented in this encounter Additional Health Concerns Infection Onset Date Last Indicated Resolved Time R/O C. diff 09/18/2020 09/18/2020 09/19/2020 2:51 PM CDT documented as of this encounter Care Teams Service Desk Manager Relationship Specialty Start Date End Date Marika Hendrickson DO [address] [place] [address] PCP - General Family Practice 06/13/17 documented as of this encounter
--- OUTSIDE RECORDS SUMMARY | 2024-11-02 12:44 | XMS_ITS | Encounter Summary ---
Author Organization [facility] Address [address] [place] [address] Care Team Providers Care Electronic Field Service Engineer Name Role Phone Marika Hendrickson DO Primary Care Provider Encounter Details Date Type Department Care Team (Latest Contact Info) Description 08/13/1998 [facility]patient [facility] [address] [place] [address] Kong uLna DO [address] [place] [address] Constipation (Primary Dx); Cervicalgia; Backache, unspecified Social History Tobacco Use Types Packs/Day Years Used Date Smoking Tobacco: Never Assessed Comments Unknown Sex and Gender Information Value Date Recorded Sex Assigned at Not on file Legal Sex Female 6:00 AM CHIEF LOAD 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 diff 09/18/2020 09/18/2020 09/19/2020 2:51 PM CDT documented as of this encounter Care Teams Electronic Field Service Engineer Relationship Specialty Start Date End Date Marika Hendrickson DO [address] [place] [address] PCP - General Family Practice 06/13/17 documented as of this encounter
--- OUTSIDE RECORDS SUMMARY | 2024-11-02 12:44 | XMS_ITS | Encounter Summary ---
Author Organization [facility] Address [address] [place] [address] Care Team Providers Care Software Test Manager Name Role Phone Marika Hendrickson DO Primary Care Provider Encounter Details Date Type Department Care Team (Late st Contact Info) Description 04/08/2008 Outpatient Historical [facility] [address] [place] [address] Sb Tobar Social History Tobacco Use Types Packs/Day Years Used Date Smoking Tobacco: Every Day Cigarettes 1 35 Alcohol Use Standard Drinks/Week Comments Yes 0 (1 standard drink = 0.6 oz pur e alcohol) very rarely Comments No Sex and Gender Information Value Date Recorded Sex Assigned at Not on file Legal Sex Female 6:00 AM CERTIFIED PERSONAL TRAINER Gender Identity Not on file Sexual Orientation Not on file documented as of this encounter Plan of Treatment Not on file documented as of this encounter Visit Diagnoses Not on filedocumented in this encounter Additional Health Concerns Infection Onset Date Last Indicated Resolved Time R/O C. diff 09/18/2020 09/18/2020 09/19/2020 2:51 PM CDT documented as of this encounter Care Teams Software Test Manager Relationship Specialty Start Date End Date Marika Hendrickson DO [address] [place] [address] PCP - General Family Practice 06/13/17 documented as of this encounter
--- OUTSIDE RECORDS SUMMARY | 2024-11-02 12:44 | XMS_ITS | Encounter Summary ---
Author Organization [facility] Address [address] [place] [address] Care Team Providers Care Motor Bus Driver Name Role Phone Marika Hendrickson DO Primary Care Provider +1- [phone] Encounter Details Date Type Department Care Team (Late st Contact Info) Description 03/07/2008 Outpatient [facility] [place] [address] [facility] [address] [place] [address] Sb Tobar Social History Tobacco Use Types Packs/Day Years Used Date Smoking Tobacco: Every Day Cigarettes 1 35 Alcohol Use Standard Drinks/Week Comments Yes 0 (1 standard drink = 0.6 oz pur e alcohol) very rarely Comments No Sex and Gender Information Value Date Recorded Sex Assigned at Not on file Legal Sex Female 6:00 AM DINING ROOM ATTENDANT Gender Identity Not on file Sexual Orientation Not on file documented as of this encounter Plan of Treatment Not on file documented as of this encounter Visit Diagnoses Not on filedocumented in this encounter Additional Health Concerns Infection Onset Date Last Indicated Resolved Time R/O C. diff 09/18/2020 09/18/2020 09/19/2020 2:51 PM CDT documented as of this encounter Care Teams Motor Bus Driver Relationship Specialty Start Date End Date Marika Hendrickson DO [address] [place] [address] PCP - General Family Practice 06/13/17 documented as of this encounter
--- OUTSIDE RECORDS SUMMARY | 2024-11-02 12:44 | XMS_ITS | Encounter Summary ---
Author Organization [facility] Address [address] [place] [address] Care Team Providers Care Cylindrical Mixer Name Role Phone Marika Hendrickson DO Primary Care Provider +1- [phone] Encounter Details Date Type Department Care Team (Latest Contact Info) Description 02/13/1998 Outpatient [facility] Medicine [address] [phone] Kesha Pulido NO ADDRESS ON FILE Vaginitis and vulvovaginitis, unspecified (Primary Dx); Gynecologic examination; Routine medical exam Social History Tobacco Use Types Packs/Day Years Used Date Smoking Tobacco: Never Assessed Comments Unknown Sex and Gender Information Value Date Recorded Sex Assigned at Not on file Legal Sex Female 6: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 diff 09/18/2020 09/18/2020 09/19/2020 2:51 PM CDT documented as of this encounter Care Teams Cylindrical Mixer Relationship Specialty Start Date End Date Marika Hendrickson DO [address] [place] [address] PCP - General Family Practice 06/13/17 documented as of this encounter
--- OUTSIDE RECORDS SUMMARY | 2024-11-02 12:44 | XMS_ITS | Encounter Summary ---
Demographics Address [address] [place] [address] Home Phone Mobile Phone Email Address .Buzz Referrals m Preferred Language Welsh Marital Status Significant other Yazidism Affiliation Unknown Race White Ethnic Group Not or Lati no Author Organization [facility] Address [address] [place] [address] Care Team Providers Care Outside Parts Sales Name Role Phone Marika Hendrickson DO Primary Care Provider Encounter Details Date Type Department Care Team (Latest Contact Info) Description 03/09/2008 Outpatient Historical [facility] Chronic Pain [address] [place] [address] Sb Tobar Thoracic or Lumbosacral [...] on file Legal Sex Female 6:00 AM MANUFACTURING ASSOCIATE Gender Identity Not on file Sexual [...] documented as of this encounter Care Teams Outside Parts Sales Relationship Specialty Start Date End Date Marika Hendrickson DO [address] [place] [address] PCP - General Family Practice 06/13/17 documented as of this encounter
--- OUTSIDE RECORDS SUMMARY | 2024-11-02 12:44 | XMS_ITS | Encounter Summary ---
Author Organization [facility] Address [address] [place] [address] Care Team Providers Care Human Resources Manager Manufacturing Name Role Phone Marika Hendrickson DO Primary Care Provider Encounter Details Date Type Department Care Team (Latest Contact Info) Description 06/26/1998 Outpatient [facility] Medicine [place] [address] [facility] [address] [place] [address] Hussein Gomez MD [address] [facility] [address] [place] [address] Tietze's disease (Primary Dx); Sprain of neck Social History Tobacco Use Types Packs/Day Years Used Date Smoking Tobacco: Never Assessed Comments Unknown Sex and Gender Information Value Date Recorded Sex Assigned at Not on file Legal Sex Female 6:00 AM NEWSPAPER PUBLISHER Gender Identity Not on file Sexual Orientation Not on file documented as of this encounter Plan of Treatment Not on file documented as of this encounter Visit Diagnoses Diagnosis Tietze's disease- Primary Sprain of neck Neck sprain and strain documented in this encounter Additional Health Concerns Infection Onset Date Last Indicated Resolved Time R/O C. diff 09/18/2020 09/18/2020 09/19/2020 2:51 PM CDT documented as of this encounter Care Teams Human Resources Manager Manufacturing Relationship Specialty Start Date End Date Marika Hendrickson DO [address] [place] [address] PCP - General Family Practice 06/13/17 documented as of this encounter
--- OUTSIDE RECORDS SUMMARY | 2024-11-02 12:44 | XMS_ITS | Encounter Summary ---
Author Organization [facility] Address [address] [place] [address] Care Team Providers Care Biomaterials Engineer Name Role Phone Marika Hendrickson DO Primary Care Provider [phone] Encounter Details Date Type Department Care Team (Late st Contact Info) Description 10/03/2008 Ancillary Orders [facility] [id number] [place] [address] [place] [address] Marquis Hodge MD [facility] [place] [address] Social History Tobacco Use Types Packs/Day Years Used Date Smoking Tobacco: Every Day Cigarettes 1 35 Alcohol Use Standard Drinks/Week Comments Yes 0 (1 standard drink = 0.6 oz pur e alcohol) very rarely Comments No Sex and Gender Information Value Date Recorded Sex Assigned at Not on file Legal Sex Female 6:00 AM GLASS MAKER Gender Identity Not on file Sexual Orientation Not on file documented as of this encounter Plan of Treatment Not on file documented as of this encounter Visit Diagnoses Not on filedocumented in this encounter Additional Health Concerns Infection Onset Date Last Indicated Resolved Time R/O C. diff 09/18/2020 09/18/2020 09/19/2020 2:51 PM CDT documented as of this encounter Care Teams Biomaterials Engineer Relationship Specialty Start Date End Date Marika Hendrickson DO [address] [place] [address] PCP - General Family Practice 06/13/17 documented as of this encounter
--- OUTSIDE RECORDS SUMMARY | 2024-11-02 12:44 | XMS_ITS | Encounter Summary ---
Author Organization [facility] Address [address] [place] [address] Care Team Providers Care Instrument Fitter Name Role Phone Marika Hendrickson DO Primary Care Provider [phone]- [phone] Encounter Details Date Type Department Care Team (Latest Contact Info) Description 09/30/1999 Outpatient [facility] Medicine [place] [address] [facility] [address] [place] [address] Kesha Pulido NO ADDRESS ON FILE Nonallopathic lesion of pelvic region, not elsewhere classified (Primary Dx); Other specified menopausal and postmenopausal disorder Social History Tobacco Use Types Packs/Day Years Used Date Smoking Tobacco: Never Assessed Comments Unknown Sex and Gender Information Value Date Recorded Sex Assigned at Not on file Legal Sex Female 6:00 AM MOTION PICTURE NARRATOR Gender Identity Not on file Sexual Orientation Not on file documented as of this encounter Plan of Treatment Not on file documented as of this encounter Visit Diagnoses Diagnosis Nonallopathic lesion of pelvic region, not elsewhere classified- Primary Other specified menopausal and postmenopausal disorder documented in this encounter Additional Health Concerns Infection Onset Date Last Indicated Resolved Time R/O C. diff 09/18/2020 09/18/2020 09/19/2020 2:51 PM CDT documented as of this encounter Care Teams Instrument Fitter Relationship Specialty Start Date End Date Marika Hendrickson DO [address] [place] [address] PCP - General Family Practice 06/13/17 documented as of this encounter
--- OUTSIDE RECORDS SUMMARY | 2024-11-02 12:44 | XMS_ITS | Encounter Summary ---
Author Organization [facility] Address [address] [place] [address] Care Team Providers Care Licensed Therapist Name Role Phone Marika Hendrickson DO Primary Care Provider Encounter Details Date Type Department Care Team (Latest Contact Info) Description 05/05/1998 Outpatient [facility] Family Medicine [place] [address] [facility] [address] [place] [address] Hussein Gomez MD [address] [facility] [address] [place] [address] Contusion of lower leg (Primary Dx) Social History Tobacco Use Types Packs/Day Years Used Date Smoking Tobacco: Never Assessed Comments Unknown Sex and Gender Information Value Date Recorded Sex Assigned at Not on file Legal Sex Female 6:00 AM TEAROOM HOST Gender Identity Not on file Sexual Orientation Not on file documented as of this encounter Plan of Treatment Not on file documented as of this encounter Visit Diagnoses Diagnosis Contusion of lower leg- Primary documented in this encounter Additional Health Concerns Infection Onset Date Last Indicated Resolved Time R/O C. diff 09/18/2020 09/18/2020 09/19/2020 2:51 PM CDT documented as of this encounter Care Teams Licensed Therapist Relationship Specialty Start Date End Date Marika Hendrickson DO [address] [place] [address] PCP - General Family Practice 06/13/17 documented as of this encounter
--- OUTSIDE RECORDS SUMMARY | 2024-11-02 12:44 | XMS_ITS | Encounter Summary ---
Author Organization [facility] Address [address] [place] [address] Care Team Providers Care Lard Tub Washer Name Role Phone Marika Hendrickson DO Primary Care Provider Encounter Details Date Type Department Care Team (Latest Contact Info) Description 07/17/1998 Outpatient [facility] Medicine [place] 104 [facility] 60 [place] [phone] Kong Luna DO [address] [place] [phone] Backache, unspecified (Primary Dx); Anxiety state, unspecified; Nonallopathic lesion of cervical region, not elsewhere classified; Nonallopathic lesion of thoracic region, not elsewhere classified Social History Tobacco Use Types Packs/Day Years Used Date Smoking Tobacco: Never Assessed Comments Unknown Sex and Gender Information Value Date Recorded Sex Assigned at Not on file Legal Sex Female 6: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 diff 09/18/2020 09/18/2020 09/19/2020 2:51 PM CDT documented as of this encounter Care Teams Lard Tub Washer Relationship Specialty Start Date End Date Marika Hendrickson DO [address] [place] [address] PCP - General Family Practice 06/13/17 documented as of this encounter
--- OUTSIDE RECORDS SUMMARY | 2024-11-02 12:44 | XMS_ITS | Encounter Summary ---
Author Organization [facility] Address [address] [place] [address] Care Team Providers Care Lime Kiln Worker Helper Name Role Phone Marika Hendrickson DO Primary Care Provider Encounter Details Date Type Department Care Team (Latest Contact Info) Description 03/21/2008 Outpatient Historical [facility] Physical Therapy [address] [place] [address] Byron Mendoza MD NO ADDRESS [...] on file Legal Sex Female 6:00 AM TRANSIT MAN Gender Identity Not on file Sexual Orientation Not on file documented as of this encounter Plan of Treatment Not on file documented as of this encounter Visit Diagnoses Diagnosis Disorders of sacrum documented in this encounter Additional Health Concerns Infection Onset Date Last Indicated Resolved Time R/O C. diff 09/18/2020 09/18/2020 09/19/2020 2:51 PM CDT documented as of this encounter Care Teams Lime Kiln Worker Helper Relationship Specialty Start Date End Date Marika Hendrickson DO [address] [place] [address] PCP - General Family Practice 06/13/17 documented as of this encounter
--- OUTSIDE RECORDS SUMMARY | 2024-11-02 12:44 | XMS_ITS | Encounter Summary ---
Author Organization [facility] Address [address] [place] [address] Care Team Providers Care Bricklayer Name Role Phone Marika Hendrickson DO Primary Care Provider Encounter Details Date Type Department Care Team (Latest Contact Info) Description 07/31/1998 Outpatient Historical [facility] Medicine [place] 104 [facility] 60 [place] [phone] Kong Luna DO [address] [place] [phone] Backache, unspecified (Primary Dx); Spasm of muscle; Cervicalgia; Essential and other specified forms of tremor Social History Tobacco Use Types Packs/Day Years Used Date Smoking Tobacco: Never Assessed Comments Unknown Sex and Gender Information Value Date Recorded Sex Assigned at Not on file Legal Sex Female 6:00 AM SCIENCE TUTOR Gender Identity Not on file Sexual Orientation [...] documented as of this encounter Care Teams Bricklayer Relationship Specialty Start Date End Date Marika Hendrickson DO [address] [place] [phone] PCP - General Family Practice 06/13/17 documented as of this encounter
--- OUTSIDE RECORDS SUMMARY | 2024-11-02 12:44 | XMS_ITS | Encounter Summary ---
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 Operator Name Role Phone Marika Hendrickson DO Primary Care Provider Encounter Details Date Type Department Care Team (Latest Contact Info) Description 07/03/1998 Outpatient [facility] Medicine [place] 104 [facility] 60 [place] [phone] Kong Luna DO [address] [place] [address] [phone] Postconcussion syndrome (Primary Dx); Sprain of neck Social History Tobacco Use Types Packs/Day Years Used Date Smoking Tobacco: Never Assessed Comments Unknown Sex and Gender Information Value Date Recorded Sex Assigned at Not on file 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 diff 09/18/2020 09/18/2020 09/19/2020 2:51 PM CDT documented as of this encounter Care Teams Frothing Machine Operator Relationship Specialty Start Date End Date Marika Hendrickson DO [address] [place] [address] PCP - General Family Practice 06/13/17 documented as of this encounter
--- NOTE | 2024-11-02 12:59 | XRR_ITS ---
PROCEDURE INFORMATION: Exam: XR Left Hip Exam date and time: 11/02/2024 1:23 PM Age: 59 years old Clinical indication: Injury or trauma; Fall; Blunt trauma (contusions or hematomas); Left; Hip; Additional info: Fall, left hip pain TECHNIQUE: Imaging protocol: Radiologic exam of the left hip. Views: 2 or 3 views hip with pelvis when performed. COMPARISON: MR hip LT wo con* [id number] 01/20/2024 9:42 AM FINDINGS: Bones/joints: No fracture or dislocation is seen about the left hip. AP view of the pelvis and both hips is without identification fracture as well. Mild degenerative changes. Soft tissues: Unremarkable. XR/XR hip LT 2-3V wo/w pel* [id number] IMPRESSION: No fracture or dislocation.
--- NOTE | 2024-11-02 12:59 | XRR_ITS ---
PROCEDURE INFORMATION: Exam: XR Left Wrist Exam date and time: 11/02/2024 1:29 PM Age: 59 years old Clinical indication: Injury or trauma; Fall; Blunt trauma (contusions or hematomas); Wrist; Left; Additional info: Pain TECHNIQUE: Imaging protocol: Radiologic exam of the left wrist. Views: 3 or more views. COMPARISON: No relevant prior studies available. FINDINGS: Bones/joints: A nondisplaced fracture seen within the distal metaphysis of the left radius. On the oblique and lateral views, fracture line appears obliquely oriented along the ventral lateral aspect with extension toward the articular margin. No other fracture seen. Wrist joint appears maintained with minimal widening of the scapholunate space in relation to the other joint spaces on the AP projection. This could indicate small amount of ligamentous injury as well. Soft tissues: Mild soft tissue swelling. XR/XR wrist LT min 3V* [id number] IMPRESSION: Nondisplaced fracture distal metaphysis left radius as noted above. Minimal widening scapholunate joint space in relation to the other joint spaces on the AP projection raising the possibility of associated mild ligamentous injury.
--- NOTE | 2024-11-02 13:01 | XRR_ITS ---
PROCEDURE INFORMATION: Exam: XR Left Knee Exam date and time: 11/02/2024 1:16 PM Age: 59 years old Clinical indication: Injury or trauma; Fall; Blunt trauma; Knee; Left; Additional info: Fall, pain TECHNIQUE: Imaging protocol: Radiologic exam of the left knee. Views: 3 views. COMPARISON: CR XR knees AP WB w LT lmt ORTH 08/13/2024 2:23 PM FINDINGS: Bones/joints: No fracture or dislocation is seen. Degenerative arthritis is seen, with joint space narrowing medial femoral compartment and patellofemoral compartment along with hypertrophic bony changes, as noted with prior exam. A fabella is seen posterolaterally. No significant suprapatellar fullness or effusion. Soft tissues: No significant soft tissue abnormality. XR/XR knee LT 3V* [id number] IMPRESSION: Degenerative arthritis left knee as noted with prior exam 08/13/2024. No fracture identified.
--- NOTE | 2024-11-02 15:03 | W.ED.FALL ---
HPI - Fall General: Chief Complaint: Fall Stated Complaint: fall Time Seen by Provider: 11/02/24 12:37 History of Present Illness: Patient is a 59-year-old female who presents to the ED after a fall at [facility]. She reports that she stepped down off a curb when her shopping cart fell, causing her to fall with it. She landed on her left side, primarily impacting her left knee and left hand/wrist. She denies any head injury, loss of consciousness, or abdominal pain. Patient reports pain in her left knee, leg, and left wrist/hand, with pain radiating up her left arm. She recently received a cortisone injection in her left knee. Patient denies ankle pain. Patient has multiple comorbidities including diabetes, diabetic neuropathy, fibromyalgia, chronic pain, and history of TIAs and traumatic brain injury years ago. Related Data Home Medications ?Medication ?Instructions ?Recorded ?Confirmed acyclovir 400 mg tablet 400 mg PO BID 04/20/19 11/02/24 amitriptyline 150 mg tablet 150 mg PO .BEDTIME 04/20/19 11/02/24 insulin aspart U-100 100 unit/mL See Rx Instructions SUBCUT TID 12/12/19 11/02/24 (3 mL) subcutaneous pen (Novolog FlexPen U-100 Insulin aspart) fluticasone propionate 50 1 spray intranasal QPM 03/06/20 11/02/24 mcg/actuation nasal spray,suspension (Allergy Relief (fluticasone)) metoprolol tartrate 100 1 tab PO DAILY 03/06/20 11/02/24 mg-hydrochlorothiazide 25 mg tablet potassium chloride 10 mEq 10 meq PO DAILY PRN Edema 03/06/20 11/02/24 capsule,extended release sumatriptan succinate 50 mg tablet 50 mg PO Q2H PRN Migraine Headache 03/06/20 11/02/24 clonidine HCl 0.1 mg tablet 0.1 mg PO BID 09/24/20 11/02/24 baclofen 10 mg tablet 10 mg PO BID 04/01/21 11/02/24 aripiprazole 30 mg tablet 30 mg PO DAILY 11/02/24 11/02/24 aspirin 325 mg tablet 325 mg PO DAILY 11/02/24 11/02/24 atorvastatin 80 mg tablet 80 mg PO BEDTIME 11/02/24 11/02/24 bumetanide 0.5 mg tablet 0.5 mg PO DAILY PRN swelling 11/02/24 11/02/24 buspirone 10 mg tablet 10 mg PO BID 11/02/24 11/02/24 chlorhexidine gluconate 0.12 % See Rx Instructions .Route .COMPLEX 11/02/24 11/02/24 mouthwash clotrimazole 10 mg ashwin See Rx Instructions .Route .COMPLEX 11/02/24 11/02/24 dulaglutide 1.5 mg/0.5 mL 0.5 mg SUBCUT Q7D 11/02/24 11/02/24 subcutaneous pen injector (Trulicity) duloxetine 60 mg capsule,delayed 60 mg PO BID 11/02/24 11/02/24 release fluticasone furoate 200 1 inh inhalation DAILY 11/02/24 11/02/24 mcg-vilanterol 25 mcg/dose inhalation powder (Breo Ellipta) insulin glargine 100 unit/mL (3 80 unit SUBCUT QAM 11/02/24 11/02/24 mL) subcutaneous pen (Lantus Solostar U-100 Insulin) latanoprost 0.005 % eye drops 1 drp ophthalmic (eye) QPM 11/02/24 11/02/24 lisinopril 10 mg tablet 10 mg PO DAILY 11/02/24 11/02/24 metformin 500 mg tablet,extended 1,000 mg PO BID 11/02/24 11/02/24 release 24 hr methocarbamol 750 mg tablet 750 mg PO QID 11/02/24 11/02/24 mirtazapine 30 mg tablet 30 mg PO BEDTIME 11/02/24 11/02/24 oxycodone 10 mg tablet 10 - 20 mg PO .Q4-6H PRN Pain 11/02/24 11/02/24 pregabalin 200 mg capsule 200 mg PO TID 11/02/24 11/02/24 Previous Rx's ?Medication ?Instructions ?Recorded Night Splint #1 ea 09/24/20 Allergies Allergy/AdvReac Type Severity Reaction Status Date / Time monosodium glutamate Allergy Severe ALGY-Anaphy Verified 11/02/24 09:58 laxis amoxapine AdvReac UNKNOWN Verified 11/02/24 09:58 quetiapine (From Seroquel) AdvReac ALGY-Rash Verified 11/02/24 09:58 Sulfa (Sulfonamide AdvReac ADR-Swelling Verified 11/02/24 09:58 Antibiotics) of the Eye [facility] ED PFSH: Medical History (Updated 11/02/24 @ 15:05 by Eric Lund MD) Chronic foot pain Chronic SI joint pain Encounter for long-term opiate analgesic use History of diabetes mellitus History of TIA (transient ischemic attack) 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 HEENT: Head normocephalic and atraumatic. Mucous membranes moist. Neck: supple. Respiratory: No increased work of breathing, No wheezing. Cardiac: Regular rate and rhythm, 2+ pulses in all extremities. Palpable pedal pulses in bilateral lower extremities. Abdomen: Soft, non-distended, no rebound or guarding. Neuro: Cranial nerves grossly intact, no focal motor or sensory deficits noted. Sensation intact to light touch in left hand/fingers. Musculoskeletal: - Left wrist: Pain with palpation of distal radius, no significant deformity or swelling noted. Full range of motion of fingers with intact sensation. - Left knee: Mild pain with range of motion, mild abrasions noted to anterior aspect, mild swelling present. - Bilateral hips: Full range of motion without pain or discomfort. - Back: No significant tenderness beyond patient's baseline. Course Vital Signs: Vital signs: Vital Signs Temperature 97.9 F 11/02/24 12:37 Pulse Rate 86 11/02/24 12:37 Respiratory Rate 16 11/02/24 12:37 Pulse Oximetry 95 11/02/24 12:37 Oxygen Delivery Me thod Room Air 11/02/24 12:37 MDM - Fall Medical Decision Making ROS: Constitutional: Denies loss of consciousness. Neurological: Denies head injury or trauma. Musculoskeletal: Reports left knee, leg, and left wrist/hand pain with radiation up the left arm. Cardiovascular: Denies being on blood thinners except for aspirin. Gastrointestinal: Denies abdominal pain. All other systems reviewed and negative or non-contributory. MEDICATIONS AND ALLERGIES: - Meds: Aspirin, other medications not specified - Allergies: Seroquel, Sulfa, MSG (carries EpiPen for MSG allergy) PAST HISTORICAL DATA: - PMH: Diabetes mellitus, diabetic neuropathy, fibromyalgia, chronic pain, history of TIAs, traumatic brain injury (years ago) - Immunizations: Tetanus up to date (2022) INITIAL IMPRESSION AND PLAN: Given the history and presentation, the primary working diagnosis is left wrist injury and left knee contusion following a fall. Additional considerations include possible fracture of the left wrist, ligamentous injury of the left knee, and soft tissue injuries. Based on this initial impression I will order X-rays of the left wrist, left knee, and left hip/pelvis to evaluate for possible fractures or other bony abnormalities. TEST INTERPRETATIONS: - X-ray left wrist: Nondisplaced fracture of the distal metaphysis left radius. Minimal widening of scapholunate joint space in relation to other joint spaces on AP projection, raising possibility of associated mild ligamentous injury. - X-ray left knee: Degenerative arthritis of the left knee, consistent with prior exam from 08/13/2024. No acute fracture identified. - X-ray left hip and pelvis: No acute findings. PROCEDURES: Application of volar wrist splint to left wrist for stabilization of distal radius fracture. CONSIDERED BUT NOT PERFORMED: Head CT considered but not performed due to patient denying head trauma, loss of consciousness, and having no signs of head injury on examination. FINAL IMPRESSION: Based on all the above, my clinical impression is most compatible with: 1. Nondisplaced distal radius fracture of the left wrist with possible mild scapholunate ligamentous injury 2. Left knee contusion with pre-existing degenerative arthritis The clinical picture is not currently suggestive of hip fracture, intracranial injury, or neurovascular compromise of the affected extremities. Although other conditions were also considered, they were deemed unlikely based on the clinical information available. CLINICAL DISPOSITION: The patient's current condition is stable in my estimation and the most appropriate and indicated disposition at this time is discharge home with orthopedic follow-up. The patient is safe for discharge as she has a nondisplaced fracture that has been appropriately stabilized with a volar wrist splint. She has intact neurovascular status of the affected extremity with good pulses and sensation. Her pain is manageable, and she has no evidence of other significant injuries requiring admission. Outpatient follow-up with orthopedics is appropriate for definitive management of her distal radius fracture. RISK STRATIFICATION AND CLINICAL DECISION RULES APPLIED: [place] Wrist Rules - Positive. Patient had tenderness in the anatomic snuffbox and pain with axial loading of the thumb, warranting X-ray which confirmed distal radius fracture. CASE SUMMARY: 59-year-old female with history of diabetes, diabetic neuropathy, fibromyalgia, chronic pain, and prior TIAs presented after falling at [facility] when her shopping cart fell and pulled her down. She landed on her left side, primarily impacting her left knee and wrist. Examination revealed tenderness of the left wrist and mild abrasions with pain on movement of the left knee. X-rays demonstrated a nondisplaced distal radius fracture with possible mild ligamentous injury and degenerative changes in the left knee without acute fracture. Patient was placed in a volar wrist splint and discharged home with instructions to follow up with Dr. Negron in orthopedic surgery for definitive management of her fracture. Patient was educated on proper splint care, pain management, and return precautions. Lab Data Radiology Impressions Hip/Pelvis X-Ray 11/02/24 12:59 IMPRESSION: No fracture or dislocation. Wrist X-Ray 11/02/24 12:59 IMPRESSION: Nondisplaced fracture distal metaphysis left radius as noted above. Minimal widening scapholunate joint space in relation to the other joint spaces on the AP projection raising the possibility of associated mild ligamentous injury. Knee X-Ray 11/02/24 13:01 IMPRESSION: Degenerative arthritis left knee as noted with prior exam 08/13/2024. No fracture identified. All radiology interpretation(s) finalized by discharge Discharge Plan Discharge Patient Disposition: Home Clinical Impression: Distal radius fracture, left, Contusion of knee, Abrasion Condition: Stable Prescriptions: No Action amitriptyline 150 mg tablet 150 mg PO .BEDTIME acyclovir 400 mg tablet 400 mg PO BID insulin aspart U-100 [Novolog FlexPen U-100 Insulin] 100 unit/mL (3 mL) insulin pen See Rx Instructions SUBCUT TID Rx Instructions: PER SLIDING SCALE SUBCUT three times daily; fluticasone propionate [Allergy Relief (fluticasone)] 50 mcg/actuation spray,suspension 1 spray intranasal QPM Rx Instructions: administer into each nostril metoprolol ta-hydrochlorothiaz 100-25 mg tablet 1 tab PO DAILY potassium chloride 10 mEq capsule, extended release 10 meq PO DAILY PRN (Reason: Edema) sumatriptan succinate 50 mg tablet 50 mg PO Q2H PRN (Reason: Migraine Headache) Rx Instructions: do not exceed 4 doses per 24 hrs clonidine HCl 0.1 mg tablet 0.1 mg PO BID (DME) Night Splint See Rx Instructions .Route .MEDSUPPLY Qty: 1 0RF Rx Instructions: As directed baclofen 10 mg tablet 10 mg PO BID clotrimazole 10 mg ashwin See Rx Instructions .ROUTE .COMPLEX Rx Instructions: DISSOLVE ONE lozenge in MOUTH five times DAILY FOR 15 TO 30 minutes UNTIL ALL lozenges are GONE. aspirin 325 mg Tablet 325 mg PO DAILY methocarbamol 750 mg tablet 750 mg PO QID mirtazapine 30 mg tablet 30 mg PO BEDTIME bumetanide 0.5 mg tablet 0.5 mg PO DAILY PRN (Reason: swelling) buspirone 10 mg tablet 10 mg PO BID aripiprazole 30 mg tablet 30 mg PO DAILY chlorhexidine gluconate 0.12 % mouthwash See Rx Instructions .ROUTE .COMPLEX Rx Instructions: RINSE with 15 ML TWICE DAILY FOR 30 seconds. DO not eat, drink, OR RINSE FOR 30 minutes AFTER USE. fluticasone furoate-vilanterol [Breo Ellipta] 200-25 mcg/dose blister with device 1 inh INHALATION DAILY Trulicity 1.5 mg/0.5 mL pen injector 0.5 mg SUBCUT Q7D Rx Instructions: Fridays latanoprost 0.005 % drops 1 drp ophthalmic (eye) QPM lisinopril 10 mg tablet 10 mg PO DAILY metformin 500 mg tablet extended release 24 hr 1,000 mg PO BID duloxetine 60 mg capsule,delayed release(DR/EC) 60 mg PO BID pregabalin 200 mg capsule 200 mg PO TID insulin glargine [Lantus Solostar U-100 Insulin] 100 unit/mL (3 mL) insulin pen 80 unit SUBCUT QAM oxycodone 10 mg tablet 10 - 20 mg PO .Q4-6H PRN (Reason: Pain) atorvastatin 80 mg tablet 80 mg PO BEDTIME Discharge Orders: Discharge ED (Routine); Ordered 11/02/24 Ordered By: Eric Lund Referrals: Marika Hendrickson DO [Primary Care Provider, [facility]] Patient Instructions: Closed Reduction (ED), Opioid Safety, Pain Management, Patient Portal & Kvng Instructions Activity Restrictions/Additional Instructions: INSTRUCTIONS: 1. Keep your left wrist splint clean, dry, and in place at all times until seen by orthopedics. 2. Elevate your left arm above the level of your heart when sitting or lying down to help reduce swelling. 3. Apply ice to your left knee for 20 minutes every 2-3 hours for the next 48 hours to reduce swelling. 4. Take pain medications as prescribed. 5. Do not bear weight on your left wrist or perform any heavy lifting or strenuous activities with your left arm. MEDICATIONS: - Continue your regular medications including aspirin - Take [id number] pain relievers as needed for pain (acetaminophen preferred) FOLLOW-UP: - Follow up with Dr. Mendoza in orthopedic surgery within 3-5 days. Please call to schedule your appointment. RETURN TO THE EMERGENCY DEPARTMENT IF: 1. Increased pain, swelling, numbness, or tingling in your left hand or fingers 2. Fingers become cold, blue, or pale 3. Splint becomes too tight, loose, or damaged 4. Severe pain not controlled with prescribed medications 5. Fever greater than 100.4?F 6. Any other concerning symptoms develop Print Language: Ukrainian Coding Level of Care Code ED Press Clipper for Dominik Chavira
== END 2024-11-02 15:11 | disposition home or self-care (01) ==
PROVIDERS: Emergency Provider Student in an Organized Health Care Education/Training Program; PCP Family Medicine
DX: S52.592A Other fractures of lower end of left radius, initial encounter for closed fracture (principal); S80.02XA Contusion of left knee, initial encounter; Z79.4 Long term (current) use of insulin; Z79.82 Long term (current) use of aspirin; E11.9 Type 2 diabetes mellitus without complications; Z86.73 Personal history of transient ischemic attack (TIA), and cerebral infarction without residual deficits; W19.XXXA Unspecified fall, initial encounter
CPT/HCPCS: 29125; 73110; 73502; 73562; 99283; 99291

== ENCOUNTER → 2024-11-06 15:49 | Outpatient (BNVA) | payer MEDICARE, MEDICAID, SELFPAY | PROVIDERS: PCP Family Medicine; Visit Provider Orthopaedic Surgery | DX: S52.502A Unspecified fracture of the lower end of left radius, initial encounter for closed fracture (principal); X58.XXXA Exposure to other specified factors, initial encounter | CPT/HCPCS: 73110 ==

== ENCOUNTER 2024-11-06 16:20 | Outpatient (CLI) | payer MEDICARE, MEDICAID, SELFPAY | END 2024-11-06 16:21 | disposition home or self-care (01) | LOC: SPT 16:21 | PROVIDERS: PCP Family Medicine; Visit Provider Orthopaedic Surgery | DX: Z46.89 Encounter for fitting and adjustment of other specified devices (principal); S52.502D Unspecified fracture of the lower end of left radius, subsequent encounter for closed fracture with routine healing; X58.XXXD Exposure to other specified factors, subsequent encounter | CPT/HCPCS: 99203; L3908 ==

== ENCOUNTER → 2024-11-27 10:46 | Outpatient (BNVA) | payer MEDICARE, MEDICAID, SELFPAY | PROVIDERS: PCP Family Medicine; Visit Provider Orthopaedic Surgery | DX: S52.515D Nondisplaced fracture of left radial styloid process, subsequent encounter for closed fracture with routine healing (principal); X58.XXXD Exposure to other specified factors, subsequent encounter | CPT/HCPCS: 73110; 99024; 99213 ==

== ENCOUNTER → 2024-12-25 14:02 | Outpatient (BNVA) | payer OTHER, MEDICAID, SELFPAY | PROVIDERS: PCP Family Medicine; Visit Provider Orthopaedic Surgery | DX: S52.515A Nondisplaced fracture of left radial styloid process, initial encounter for closed fracture (principal); X58.XXXA Exposure to other specified factors, initial encounter | CPT/HCPCS: 73110 ==

== ENCOUNTER → 2025-01-28 14:20 | Outpatient (BNVA) | payer OTHER, MEDICAID, SELFPAY | PROVIDERS: PCP Family Medicine; Visit Provider Specialist | DX: M17.12 Unilateral primary osteoarthritis, left knee (principal) | CPT/HCPCS: 73560; 73565 ==

== ENCOUNTER → 2025-02-05 13:39 | Outpatient (BNVA) | payer OTHER, MEDICAID, SELFPAY | PROVIDERS: PCP Family Medicine; Visit Provider Orthopaedic Surgery | DX: S52.501D Unspecified fracture of the lower end of right radius, subsequent encounter for closed fracture with routine healing (principal); X58.XXXD Exposure to other specified factors, subsequent encounter | CPT/HCPCS: 73110; 99024; 99213 ==

== ENCOUNTER 2025-02-06 12:51 | Outpatient (CLI) | payer OTHER, MEDICAID, SELFPAY ==
--- NOTE | 2025-02-06 13:00 | MR_ITS ---
WS: [id number] MRI LEFT KNEE HISTORY: left knee pain, fall 3 months ago. COMPARISON: Radiograph 01/28/2025 Anterior cruciate ligament: Increased signal and thickening of the ACL from mucoid degeneration. There is an wavy course of the ACL but this is probably due to anterior translation of the tibia. Posterior cruciate ligament: Intact. Medial collateral ligament: MCL is displaced to the joint line by the extruded meniscus and osteophytes. Increased fluid within the central MCL consistent with partial tear. No full-thickness tear. Posterior lateral corner structures: Intact. Medial menisci: Anterior and posterior horns are small caliber with extrusion from the joint space. Lateral meniscus: Intact. Normal signal, size and shape. Extensor mechanism: Distal quadriceps tendon and patellar tendons are intact. Fluid and soft tissue: There is small amount of fluid in the suprapatellar joint space. There is a complex fluid collection with fluid and septations along the anteromedial knee at the level of the patella. This collection is loculated measuring 3.9 x 1.0 x 4.5 cm. Collection is deep to the medial patellar retinaculum and extends inferiorly along the MCL across the joint space. Closely associated with the meniscus. There is extension into the infrapatellar fat pad. Seen best on the axial imaging are several intra-articular bodies anterior to the knee joint and posterior to the infrapatellar fat pad. No Calvo's cyst. Osseous and articular structures: Patellofemoral compartment: Marked narrowing patellofemoral joint space with complete loss of cartilage. No marrow edema or fracture. Medial compartment: Severe narrowing of the medial compartment with bone upon bone, complete loss of cartilage, osteophytes and marrow edema. No fracture. Lateral compartment: Severe narrowing of the lateral compartment with diffuse chondromalacia. Full-thickness defect along the central weightbearing surface of the femoral condyle. Small osteophytes. MR/MR knee LT wo con* [id number] IMPRESSION: 1. Abnormal signal throughout the ACL. This may all be extensive mucoid degene ration. ACL tear would be difficult to exclude. 2. Severe tricompartment osteoarthritis with diffuse chondromalacia. 3. Complex cystic mass along the anterior medial knee measures 3.9 x 1.0 x 4.5 cm. There is partial extension into the infrapatellar fat pad and over the med ial meniscus. Differential includes ganglion associated with Hoffa's fat pad or a complex parameniscal cyst. 4. No acute fracture. There is marrow edema in the medial femoral condyle and tibial plateau which is most likely reactive edema. 5. Abnormal shape of the anterior posterior horn medial meniscus from tears an d extrusion from the joint. 6. Interstitial tear of the MCL. No full-thickness tear.
== END 2025-02-06 12:52 | disposition home or self-care (01) ==
LOC: RAD 12:52
PROVIDERS: PCP Family Medicine; Visit Provider Specialist
DX: M25.562 Pain in left knee (principal); M17.12 Unilateral primary osteoarthritis, left knee; M94.262 Chondromalacia, left knee; M23.032 Cystic meniscus, other medial meniscus, left knee; M23.222 Derangement of posterior horn of medial meniscus due to old tear or injury, left knee; S83.412A Sprain of medial collateral ligament of left knee, initial encounter
CPT/HCPCS: 73721

== ENCOUNTER → 2025-02-13 09:24 | Outpatient (BNVA) | payer MEDICARE, MEDICAID, SELFPAY | PROVIDERS: PCP Family Medicine; Visit Provider Specialist | DX: M17.12 Unilateral primary osteoarthritis, left knee (principal) | CPT/HCPCS: 20610; 99215; J1100; J2795; J3301; J9999 ==